=== PATIENT | female | born 1965 | race Caucasian/White ===

== ENCOUNTER 2020-03-17 18:10 | Emergency (ER) | payer BC, SELFPAY ==
--- NOTE | ~2020-03-17 | CT_ITS ---
EXAMINATION: CT abdomen pelvis wo con DATE: 03/17/2020 19:31 INDICATION: Left flank pain. TECHNIQUE: Computed tomography (CT) of the abdomen and pelvis was performed without intravenous contr ast. Automated exposure control and iterative reconstruction technique were employed. The dose-length product was 375.73 mGy-cm. COMPARISON: CT abdomen and pelvis 06/23/2014 FINDINGS: The visualized portions of the lung bases are clear without pneumonia or pleural effusion. The heart size is normal. No pericardial effusion. The liver is normal. The gallbladder is absent. Ca lcifications in the spleen are consistent with old granulomatous disease. The pancreas and adrenal gl ands are normal. There are greater than 10 stones in right kidney including a 2.1 cm staghorn calculu s in the upper pole. There are cysts in right kidney measuring up to 10 mm. There are at least 9 ston es in left kidney measuring up to 7 mm. There is mild left hydronephrosis. There are approximately 3 stones in proximal left ureter measuring up to 4 mm. There are no dilated loops of bowel. The appendi x is not visualized. There are no pathologically enlarged lymph nodes. There is no free intraperitone al fluid. There is mild lumbar spondylosis. IMPRESSION: 1. 3 stones in proximal left ureter measuring up to 4 mm with mild left hydronephrosis. 2. Bilateral nonobstructing kidney stones. Reviewed, dictated and finalized at location A. IMPRESSION: 1. 3 stones in proximal left ureter measuring up to 4 mm with mild left hydrone phrosis. 2. Bilateral nonobstructing kidney stones.
--- NOTE | ~2020-03-17 | XR_ITS ---
EXAMINATION: XR abdomen/kub 1V DATE: 03/17/2020 19:36 INDICATION: Left flank pain. TECHNIQUE: A supine view of the abdomen on 2 radiographs was obtained. COMPARISON: CT abdomen and pelvis 03/17/2020 FINDINGS: There are no dilated loops of bowel. There is a phlebolith in right pelvis. There are 3 sto rigo in proximal left ureter measuring up to 4 mm. There are multiple stones in each kidney measuring up to 14 mm in right kidney upper pole. IMPRESSION: 1. Stones in the kidneys and proximal left ureter. Reviewed, dictated and finalized at location A.
[2020-03-17 18:16] VITALS: BP 131/100; PULSE 94; RESP 18; TEMP 37.1; O2SAT 99
--- NOTE | 2020-03-17 18:24 | ED.GENADULT ---
HPI - General Adult General Chief complaint: Abdominal Pain Stated complaint: left flank pain Time Seen by Provider: 03/17/20 18:23 Source: patient Mode of arrival: ambulatory Limitations: no limitations History of Present Illness HPI narrative: 54-year-old female patient presents to the [facility] with complaints of left flank pain that started earlier today. Patient states she was at work and started having left flank pain that radiates to the left pelvis along with nausea and vomiting. Denies any fevers. Denies any diarrhea. Denies any abdominal pain. Denies any chest pain or shortness of breath. Patient states she has had kidney stones before in the past. Patient states that she did see her primary doctor today and they did test her urine and states that they were going to just go ahead and send her over here for evaluation. Related Data Allergies Allergy/AdvReac Type Severity Reaction Status Date / Time codeine Allergy Severe CHEST PAIN Verified 03/17/20 19:01 morphine AdvReac Intermediate NAUSEA/VOMI Verified 03/17/20 19:01 TING BEE STINGS Allergy Severe ANAPHALACTIC Uncoded 03/17/20 19:01 SHOCK Contrast Media Allergy Severe RASH Uncoded 03/17/20 19:01 SHELLFISH Allergy Intermediate RASH Uncoded 03/17/20 19:01 Review of Systems Review of Systems: Narrative: CONSTITUTIONAL: Denies fever, chills, or sweats. EYES: Denies visual changes, redness, or discharge. ENT: Denies rhinorrhea, congestion, sore throat, or otalgia. CARDIOVASCULAR: Denies chest pain, palpitations, or edema. RESPIRATORY: Denies cough or dyspnea. GASTROINTESTINAL: Denies abdominal pain, positive nausea, vomiting, denies diarrhea. GENITOURINARY: Denies dysuria or hematuria. Left flank pain SKIN: Denies rash or itching. MUSCULOSKELETAL: Denies back pain, joint pain, or myalgia. NEUROLOGIC: Denies headache, numbness, or weakness. PSYCHIATRIC: Denies anxiety or depression. [facility] Past Medical History Medical History (Updated 03/17/20 @ 21:01 by ROSANA Luo) Kidney stones Social History Social History Gender identity (if verbalized by the patient): Male Comments At the time of my signature I agree with nursing past medical history, surgical, social, and family history. There is no relevant family history pertinent to the presenting complaint. Exam Narrative: Exam Narrative: GENERAL: Well-appearing, well-nourished, and in no acute distress. HEAD: Normocephalic, atraumatic. EYES: PERRLA and EOMI. ENT: Nares clear, no rhinorrhea or epistaxis. Mucous membranes moist. NECK: Supple. No lymphadenopathy CHEST: Clear to auscultation. No respiratory distress. HEART: Regular rate and rhythm. No murmur heard. Normal peripheral pulses. ABDOMEN: Soft, flat, nondistended. No guarding, rebound tenderness, or rigid. Patient has slight tenderness noted to left lower quadrant left upper quadrant on palpation. No pulsatilla masses. Bowel sounds present in all four quadrants. No organomegaly. Negative Holley?s sign. No periumbicial tenderness. No Supra public tenderness or distension. Good femoral pulses bilaterally. No hernia noted. No scars or surface trauma. Tenderness on percussion. EXTREMITIES: Normal range of motion. No edema. SKIN: Warm, dry, no rash. NEURO: No focal deficits. Alert and oriented x3. Course Reevaluation(s) Reevaluation #1: Reevaluated patient. Discussed with patient about pain medicine. Patient states she thinks she has had possibly Vicodin or Percocet before in the past does not remember the reaction. Patient notified that she does have some kidney stones to bilateral sides and therefore we will go ahead and give her some pain medicine here today along with a dose of IV antibiotics and most likely will send her home since the kidney stones are nonobstructing. Patient verbalized understanding of this denies any other questions or concerns at this time. Date: 03/17/20 Bo
[2020-03-17 18:32] LABS: Basophils Percent Auto 0.4 % (0.2-1.2); Hematocrit 46.1 % (37.0-47.0); Hemoglobin 15.7 g/dL (12.0-15.0); Immature Granulocyte Absolute 0.03 K/mm3 (0.00-0.031); Immature Granulocyte Percent A 0.3 % (0-0.5); Lymphocytes Absolute Auto 2.13 K/mm3 (0.9-3.2); Lymphocytes Percent Auto 22.7 % (18.3-44.2); Mean Corpuscular HGB Conc 34.1 g/dl (32-36); Mean Corpuscular Volume 90.9 fl (80-100); Monocytes Absolute Auto 0.5 K/mm3 (0.1-0.6); Monocytes Percent Auto 5.5 % (2.6-8.5); Neutrophils Absolute Auto 6.7 K/mm3 (1.3-6.7); Neutrophils Percent Auto 71.1 % (45.5-73.1); Platelet Count Result 292 k/mm3 (150-375); Red Blood Count 5.07 M/mm3 (4.2-5.4); Red Cell Distribution Width 12.4 % (11.5-14.5); White Blood Count 9.4 K/mm3 (4.5-10.0)
[2020-03-17 18:40] LABS: Add Urine Microscopic? YES; Appearance Urine Clear (Clear); Bacteria Urine Trace /hpf; Bilirubin Urine Negative (Negative); Blood Urine 3+ (Negative); Color Urine Straw (Yellow); Glucose Urine UA Negative (Negative); Ketones Urine Negative (Negative); Leukocyte Esterase Ur 1+ LEU/UL (Negative); Nitrate Urine Negative (Negative); Protein Urine Negative (Negative); RBC Urine >75 /hpf (0-2); Specific Grav Ur 1.009 (1.001-1.035); Squamous Epithelial Cell Urine Occasional /hpf (Few); Urobilinogen Urine Negative mg/dL (<2.0); WBC Urine 16-20 /hpf
[2020-03-17 18:44] LABS: Alanine Aminotransferase 17 U/L (4-35); Albumin Level 4.8 g/dL (3.5-5.1); Alkaline Phosphatase 81 U/L (38-126); Aspartate Amino Transferase 24 U/L (14-36); Bilirubin,Total 0.4 mg/dL (0.2-1.3); Blood Urea Nitrogen 13 mg/dL (7-17); Calcium 9.9 mg/dL (8.4-10.2); Carbon Dioxide 24 mmol/L (22-30); Chloride 108 mmol/L (98-107); Estimated CRCL calculation 57 ml/min; Estimated Glomerular Filt Rate > 60; Glucose 107 mg/dL (65-105); Lipase 85 U/L (23-300); Potassium 3.4 mmol/L (3.4-5.0); Sodium 142 mmol/L (137-145)
[2020-03-17] MEDS: KETOROLAC 30 MG/ML VIAL (*BKC) IV PUSH (19:03)
[2020-03-17] MEDS: SODIUM CHLORIDE 0.9% IV 1,000 ML 999 ML IV CONT (19:03)
[2020-03-17 19:33] VITALS: TEMP 37.1
[2020-03-17] MEDS: ONDANSETRON INJ 4 MG/2 ML VIAL IV PUSH (19:40)
[2020-03-17 20:41] VITALS: BP 126/84; PULSE 82; RESP 18; O2SAT 100
[2020-03-17 20:43] VITALS: TEMP 37.1
== END 2020-03-17 21:54 | disposition home or self-care (01) ==
PROVIDERS: Emergency Medicine; Emergency Provider Nurse Practitioner Family
DX: N13.2 Hydronephrosis with renal and ureteral calculous obstruction (principal); Z87.442 Personal history of urinary calculi
CPT/HCPCS: 36415; 74018; 74176; 80053; 81001; 83690; 85025; 87077; 87086; 87088; 87186; 96361; 96365; 96375; 99284; A9270; J0696; J1885; J2405; J7030

== ENCOUNTER 2020-03-19 11:12 | Day surgery (SDC) | payer BC, SELFPAY ==
[2020-03-19] VITALS (9 sets, daily range): BP systolic 109–174; BP diastolic 69–95; PULSE 60–92; RESP 10–20; TEMP 36.5–37.3; O2SAT 99–100; BMI 24.1
--- NOTE | ~2020-03-19 | XR_ITS ---
EXAMINATION: XR retrograde pyelo w/stent LT DATE: 03/19/2020 15:54 INDICATION: Left internal ureteral stent placement TECHNIQUE: Fluoroscopic images from a left internal ureteral stent placement are submitted for review . 30 seconds of fluoroscopy time. 10 fluoroscopic images FINDINGS: There is a left double-J internal ureteral stent projecting in expected position, with proximal [place] loop at the level of the renal pelvis and distal loop in the pelvis within the bladder lumen. IMPRESSION: 1. Left internal ureteral stent placement. Please refer to real-time procedural findings for detail s. Reviewed, dictated and finalized at location B. IMPRESSION: 1. Left internal ureteral stent placement. Please refer to real-time procedur al findings for details.
[2020-03-19] MEDS: SODIUM CHLORIDE 0.9% IV 1,000 ML 999 ML IV CONT (11:42)
[2020-03-19] MEDS: FAMOTIDINE 20 MG/2 ML VIAL IV PUSH (11:43)
[2020-03-19] MEDS: ONDANSETRON INJ 4 MG/2 ML VIAL IV PUSH (11:43)
[2020-03-19 12:57] LABS: Basophils Percent Auto 0.3 % (0.2-1.2); Hematocrit 39.8 % (37.0-47.0); Hemoglobin 13.5 g/dL (12.0-15.0); Immature Granulocyte Absolute 0.02 K/mm3 (0.00-0.031); Immature Granulocyte Percent A 0.2 % (0-0.5); Lymphocytes Absolute Auto 0.76 K/mm3 (0.9-3.2); Lymphocytes Percent Auto 7.9 % (18.3-44.2); Mean Corpuscular HGB Conc 33.9 g/dl (32-36); Mean Corpuscular Hemoglobin 30.8 pg (26-34); Mean Corpuscular Volume 90.9 fl (80-100); Mean Platelet Volume 9.1 fl (7.4-10.4); Monocytes Absolute Auto 0.3 K/mm3 (0.1-0.6); Monocytes Percent Auto 2.6 % (2.6-8.5); Neutrophils Absolute Auto 8.6 K/mm3 (1.3-6.7); Platelet Count Result 217 k/mm3 (150-375); Red Blood Count 4.38 M/mm3 (4.2-5.4); Red Cell Distribution Width 12.2 % (11.5-14.5); White Blood Count 9.7 K/mm3 (4.5-10.0)
--- NOTE | 2020-03-19 12:57 | ED.ABDPAIN ---
HPI - Abdominal Pain General Chief Complaint: Urogenital-Female <Amilcar Rodriguez PA-C Last Filed: 03/19/20 14:15> Stated Complaint: left flank pain/recent kidney stones <JOAN Maurer Last Filed: 03/19/20 14:15> Time Seen by Provider: 03/19/20 11:21 <Amilcar Rodriguez PA-C - Last Filed: 03/19/20 14:15> Source: patient <Amilcar Rodriguez PA-C - Last Filed: 03/19/20 14:15> Mode of arrival: ambulatory <JOAN Maurer Last Filed: 03/19/20 14:15> Limitations: no limitations <JOAN Maurer Last Filed: 03/19/20 14:15> History of Present Illness HPI narrative: Patient is a 54-year-old female who presents to emergency department for evaluation of severe left flank pain. Patient notes aching pain diagnosed with kidney stone and saw urologist yesterday has been at home despite medications with no improvement had been seen in the ER and prescribed medications which patient has taken with no improvement. Patient notes nausea and vomiting this morning with intensified pain. Patient denies fever <Amilcar Rodriguez PA-C Last Filed: 03/19/20 14:15> Related Data Allergies/Adverse Reactions: Allergies Allergy/AdvReac Type Severity Reaction Status Date / Time codeine Allergy Severe CHEST PAIN Verified 03/17/20 19:01 morphine AdvReac Intermediate NAUSEA/VOMI Verified 03/17/20 19:01 TING BEE STINGS Allergy Severe ANAPHALACTIC Uncoded 03/17/20 19:01 SHOCK Contrast Media Allergy Severe RASH Uncoded 03/17/20 19:01 SHELLFISH Allergy Intermediate RASH Uncoded 03/17/20 19:01 <Amilcar Rodriguez PA-C - Last Filed: 03/19/20 14:15> Review of Systems Review of Systems: All systems reviewed & are unremarkable except as noted in HPI and below <Amilcar Rodriguez PA-C Last Filed: 03/19/20 14:15> PMFSH Past Medical History Medical History: Medical History Kidney stones <JOAN Maurer Last Filed: 03/19/20 14:15> Surgical History Surgical History: Surgical History H/O lithotripsy <Amilcar Rodriguez PA-C - Last Filed: 03/19/20 14:15> Social History Social History: Social History Gender identity (if verbalized by the patient): Male <Amilcar Rodriguez PA-C - Last Filed: 03/19/20 14:15> Course INCOME TAX INVESTIGATOR/PA Physician Supervision Patient presented for evaluation of recurrent renal colic. Also experiencing some nausea and vomiting. The time of initial assessment, ABCs are intact and vital signs are stable. Patient is hypertensive but also in quite a bit of pain. IV access obtained and labs are drawn. Patient was given pain medication. No acute kidney injury. No UTI. Given failed outpatient management, urology was consulted, will opt for surgical management, ureteroscopy.Pt reassessed and feeling improved following IV medications. Pt and family updated. Pt transferred to OR from ED. For this patient encounter, I reviewed the INCOME TAX INVESTIGATOR or PA documentation, treatment plan, and medical decision making; and I had silc-ks-cdac time with this patient. <Laney Garza MD - Last Filed: 03/19/20 14:27> Consultations Consultation #1: Discussed case with urologist who will take patient to the OR suite for stent placement <Amilcar Rodriguez PA-C - Last Filed: 03/19/20 14:15> Date: 03/19/20 <JOAN Maurer Last Filed: 03/19/20 14:15> Time: 14:14 <Amilcar Rodriguez PA-C - Last Filed: 03/19/20 14:15> Vital Signs Vital signs: Vital Signs Temperature 36.8 C 03/19/20 11:24 Pulse Rate 60 03/19/20 11:24 Respiratory Rate 20 03/19/20 11:24 Blood Pressure 174/95 H 03/19/20 11:24 Pulse Oximetry 100 03/19/20 11:24 Temperature 36.8 C 03/19/20 11:24 Pulse Rate 87 03/19/20 13:18 Respiratory Rate 20 03/19/20
[2020-03-19 13:02] LABS: Add Urine Microscopic? YES; Appearance Urine Clear (Clear); Bacteria Urine Trace /hpf; Bilirubin Urine Negative (Negative); Blood Urine 3+ (Negative); Calcium Oxalate Crystals Urine Present /hpf; Color Urine Straw (Yellow); Glucose Urine UA Negative (Negative); Ketones Urine Negative (Negative); Leukocyte Esterase Ur Negative LEU/UL (Negative); Nitrate Urine Negative (Negative); Protein Urine Negative (Negative); RBC Urine 51-75 /hpf (0-2); Urobilinogen Urine Negative mg/dL (<2.0)
[2020-03-19 13:08] LABS: Alanine Aminotransferase 17 U/L (4-35); Albumin Level 3.9 g/dL (3.5-5.1); Alkaline Phosphatase 77 U/L (38-126); Aspartate Amino Transferase 24 U/L (14-36); Bilirubin,Total 0.2 mg/dL (0.2-1.3); Blood Urea Nitrogen 11 mg/dL (7-17); Calcium 8.3 mg/dL (8.4-10.2); Carbon Dioxide 21 mmol/L (22-30); Chloride 110 mmol/L (98-107); Estimated CRCL calculation 64 ml/min; Estimated Glomerular Filt Rate > 60; Glucose 103 mg/dL (65-105); Lipase 50 U/L (23-300); Potassium 3.5 mmol/L (3.4-5.0); Sodium 139 mmol/L (137-145)
--- NOTE | 2020-03-19 13:57 | PM.IMHP ---
H&P: HPI History of Present Illness Chief complaint: left flank pain/recent kidney stones Narrative: Vicky Pandey is a 54 year old female who was in the emergency room earlier in the week. She was found to have 3 proximal ureteral stones up to 4 mm. She was given Toradol in the emergency room in this precluded us from proceeding with lithotripsy. She was seen in the office yesterday and had opted for conservative management. Unfortunately she could not tolerate the pain and up in the emergency room again the today. She had persistent nausea with vomiting pain. Given these findings we decided to proceed with cystoscopy left stent placement possible ureteroscopy with stone extraction holmium laser. Review of Systems Review of Systems: All systems reviewed & are unremarkable except as noted in HPI and below PMFSH Past Medical History Medical History Kidney stones Surgical History Surgical History H/O lithotripsy Social History Social History Gender identity (if verbalized by the patient): Male Meds Home Medications and Allergies Home Medications Medication Instructions Recorded Confirmed Type cephalexin 500 mg PO Q12H 7 Days #14 cap 03/17/20 Rx hydrocodone-acetaminophen [Ponder] 1 tablet PO Q6H PRN #14 tablet 03/17/20 Rx tamsulosin [Flomax] 0.4 mg PO DAILY #10 cap 03/17/20 Rx Allergies Allergy/AdvReac Type Severity Reaction Status Date / Time codeine Allergy Severe CHEST PAIN Verified 03/17/20 19:01 morphine AdvReac Intermediate NAUSEA/VOMI Verified 03/17/20 19:01 TING BEE STINGS Allergy Severe ANAPHALACTIC Uncoded 03/17/20 19:01 SHOCK Contrast Media Allergy Severe RASH Uncoded 03/17/20 19:01 SHELLFISH Allergy Intermediate RASH Uncoded 03/17/20 19:01 Vital Signs Vital Signs - 24 hr 03/19/20 11:24 03/19/20 11:48 03/19/20 13:18 Temperature 36.8 C Pulse Rate 60 88 87 Respiratory Rate 20 20 20 Blood Pressure 174/95 H 173/85 H 127/93 H Pulse Oximetry 100 100 99 Exam Const: General: uncomfortable HENMT: Ears: TM abnormal Resp: Effort & Inspection: normal respiratory effort Cardio: Rhythm: regular rhythm GI: Inspection: non-distended Neuro: Speech: normal speech H&P: Results Labs Labs: Short CBC 03/19/20 Range/Units 12:48 WBC 9.7 (4.5-10.0) K/mm3 Hgb 13.5 (12.0-15.0) g/dL Hct 39.8 (37.0-47.0) % Plt Count 217 (150-375) k/mm3 BMP 03/19/20 12:48 Sodium 139 Potassium 3.5 Chloride 110 H Carbon Dioxide 21 L BUN 11 Creatinine 0.80 Glucose 103 Calcium 8.3 L Liver Function 03/19/20 Range/Units 12:48 Total Bilirubin 0.2 (0.2-1.3) mg/dL AST 24 (14-36) U/L ALT 17 (4-35) U/L Alkaline Phosphatase 77 (38-126) U/L Albumin 3.9 (3.5-5.1) g/dL Urine 03/19/20 Range/Units 12:48 Urine Color Straw (Yellow) Urine Appearance Clear (Clear) Urine pH 6.0 (5.0-9.0) Ur Specific [place] 1.010 (1.001-1.035) Urine Protein Negative (Negative) mg/dL Urine Glucose (UA) Negative (Negative) mg/dL Assessment and Plan Assessment and plan (1) Left ureteral calculus: Code(s): N20.1 - Calculus of ureter Status: Acute Assessment and Plan: Plan for cystoscopy with left retrograde pyelogram and stent placement. May also proceed with ureteroscopy stone extraction holmium laser.
[2020-03-19] MEDS: LACTATED RINGERS 1,000 ML 30 ML IV CONT ×2 (14:20→15:56)
--- NOTE | 2020-03-19 14:49 | WPDANESEPPF ---
Anes - Initial Pre Proc Eval Procedure: Operation Date: 03/19/20 15:30 Proposed Procedures p Cystoscopy, Left Ureteroscopy, Left Retrograde Pyelogram, Left Stone Extraction, Left Ureteral Stent Placement(Left) - Vlad Scanlon MD s Possible Holmium Laser Procedure - Vlad Scanlon MD Date/Time: 03/19/20 14:49 Surgeon: Vlad Scanlon MD Pre Op Diagnosis: left flank pain/recent kidney stones Patient Data Age: 54 Gender: F Height: 5 ft 5 in Weight: 63.5 kg Last Vital Signs Temp 36.8 C 03/19/20 11:24 Pulse 87 03/19/20 13:18 Resp 20 03/19/20 13:18 BP 127/93 H 03/19/20 13:18 Pulse Ox 99 03/19/20 13:18 Allergies Allergy/AdvReac Type Severity Reaction Status Date / Time codeine Allergy Severe CHEST PAIN Verified 03/17/20 19:01 morphine AdvReac Intermediate NAUSEA/VOMI Verified 03/17/20 19:01 TING BEE STINGS Allergy Severe ANAPHALACTIC Uncoded 03/17/20 19:01 SHOCK Contrast Media Allergy Severe RASH Uncoded 03/17/20 19:01 SHELLFISH Allergy Intermediate RASH Uncoded 03/17/20 19:01 Home Medications Medication Instructions Recorded Confirmed Type cephalexin 500 mg PO Q12H 7 Days #14 cap 03/17/20 Rx hydrocodone-acetaminophen [Niland] 1 tablet PO Q6H PRN #14 tablet 03/17/20 Rx tamsulosin [Flomax] 0.4 mg PO DAILY #10 cap 03/17/20 Rx Laboratory Tests 03/19/20 03/19/20 03/19/20 12:48 12:48 12:48 WBC 9.7 K/mm3 K/mm3 (4.5-10.0) RBC 4.38 M/mm3 M/mm3 (4.2-5.4) Hgb 13.5 g/dL g/dL (12.0-15.0) Hct 39.8 % % (37.0-47.0) MCV 90.9 fl fl (80-100) MCH 30.8 pg pg (26-34) MCHC 33.9 g/dl g/dl (32-36) RDW 12.2 % % (11.5-14.5) Plt Count 217 k/mm3 k/mm3 (150-375) MPV 9.1 fl fl (7.4-10.4) Immature Gran % (Auto) 0.2 % % (0-0.5) Neut % (Auto) 89.0 % H % (45.5-73.1) Lymph % (Auto) 7.9 % L % (18.3-44.2) [place] % (Auto) 2.6 % % (2.6-8.5) Eos % (Auto) 0.0 % % (0-4.4) Baso % (Auto) 0.3 % % (0.2-1.2) Lymph # (Auto) 0.76 K/mm3 L K/mm3 (0.9-3.2) [place] # (Auto) 0.3 K/mm3 K/mm3 (0.1-0.6) Eos # (Auto) 0.0 K/mm3 K/mm3 (0-0.3) Baso # (Auto) 0.0 K/mm3 K/mm3 (0.0-0.1) Abs Immat Gran (auto) 0.02 K/mm3 K/mm3 (0.00-0.031) Absolute Neuts (auto) 8.6 K/mm3 H K/mm3 (1.3-6.7) Absolute Nucleated RBC 0.0 K/mm3 K/mm3 (0.0-0.012) Nucleated RBC % 0.0 % % (0.0-0.2) Sodium 139 mmol/L mmol/L (137-145) Potassium 3.5 mmol/L mmol/L (3.4-5.0) Chloride 110 mmol/L H mmol/L (98-107) Carbon Dioxide 21 mmol/L L mmol/L (22-30) BUN 11 mg/dL mg/dL (7-17) Creatinine 0.80 mg/dL mg/dL (0.7-1.0) Estim Creat Clear Calc 64 ml/min ml/min Estimated GFR > 60 (59 - ) Glucose 103 mg/dL mg/dL (65-105) Calcium 8.3 mg/dL L mg/dL (8.4-10.2) Total Bilirubin 0.2 mg/dL mg/dL (0.2-1.3) AST 24 U/L U/L (14-36) ALT 17 U/L U/L (4-35) Alkaline Phosphatase 77 U/L U/L (38-126) Total Protein 7.0 g/dL g/dL (6.3-8.2) Albumin 3.9 g/dL g/dL (3.5-5.1) Lipase 50 U/L U/L (23-300) Urine Color Straw (Yellow) Urine Appearance Clear (Clear) Urine pH 6.0 (5.0-9.0) Ur Specific [place] 1.010 (1.001-1.035) Urine Protein Negative mg/dL mg/dL (Negative) Urine Glucose (UA) Negative mg/dL mg/dL (Negative) Urine Ketones Negative mg/dL mg/dL (Negative) Ur Blood (Man) 3+ H (Negative) Urine Nitrate Negative (Negative) Urine Bilirubin Negative (Negative) Urine Urobilinogen Negative mg/dL mg/dL (<2.0) Leukocyte Esterase Rfl Negative SATHYA/UL SATHYA/UL (Negati
[2020-03-19] MEDS: ceFAZolin 2 GM/D5W 50 ML 2 GM/50 ML BAG IVPB (15:16)
[2020-03-19] MEDS: LIDOCAINE HCL 2% GEL UROJET 10 ML PKG MUCOUS MEM (15:30)
--- NOTE | 2020-03-19 15:48 | P.OP_ITS ---
Procedure Note - Detailed Date of procedure: 03/19/20 Pre-op diagnosis: left flank pain/recent kidney stones Left ureteral calculi x3 Post-op diagnosis: same Procedure performed: Cystoscopy, left retrograde pyelogram, left ureteroscopy with stone extraction, left ureteral stent placement 4.8 Marshallese contour Description of procedure: Patient was taken the operative suite and correctly identified. Once anesthesia was obtained she was placed in dorsal lithotomy position and prepped and draped usual sterile fashion. Twenty-two Marshallese scope inserted in the bladder there is no tumors noted. Left ureteral orifice was cannulated with a guidewire. It was noted that 1 of the stones had migrated to the left UVJ area. Using a rigid ureteral scope we used an escape basket to retrieve the stones entirety. We then advanced the ureteral scope up to the proximal ureter. We noticed another large stone which was retrieved using the escape basket. Third smaller stone was then visualized and is retrieved also. There were no residual stones noted in the ureter. At this point a pyelogram was performed to confirm placement of the stent. 4.8 contour stent was placed with the proximal end coiled in the renal pelvis and the distal in the bladder. Bladder was drained. 2% viscous lidocaine was inserted into the urethra. Patient be discharged home. She will follow up in a week's time with a KUB. We will make a decision regarding stent removal versus treatment of any renal calculi. Anesthesia: GLMA Surgeon: Vlad Scanlon MD Drains: Yes Packing: No Pathology: yes Complications: No immediate complications Condition: stable Disposition: PACU
== END 2020-03-19 17:45 | disposition home or self-care (01) ==
LOC: ANHED 13:44 → ANHSURGERY 13:50
PROVIDERS: Emergency Medicine Emergency Medical Services; Emergency Provider Emergency Medicine; PCP Urology; Visit Provider Urology
PROC: (CPT 52352; principal; 2020-03-19 15:30)
DX: N20.1 Calculus of ureter (principal)
CPT/HCPCS: 52332; 52352; 36415; 74420; 80053; 81001; 82365; 83690; 85025; 87086; 88300; 96361; 96365; 96375; 96376; 99285; A9270; C1769; C2617; J0131; J0690; J1100; J2250; J2405; J2704; J3010; J7030; J7120; Q9966

== ENCOUNTER 2020-05-11 08:22 | Outpatient (CLI) | payer BC, SELFPAY ==
--- NOTE | ~2020-05-11 | XR_ITS ---
XR abdomen/kub 1V 05/11/2020 08:45 Indication: Left ureteral stone Procedure: KUB Comparison: Comparison to multiple prior studies sequentially, with oldest reviewed study dated 02/2014. Findings: There are multiple bilateral renal stones. Nonobstructive bowel gas pattern. No acute osseo us abnormality. Impression: 1: Bilateral nephrolithiasis. Reviewed, dictated and finalized at location A. Impression: 1: Bilateral nephrolithiasis.
== END 2020-05-11 08:23 | disposition home or self-care (01) ==
LOC: ANHIMG 08:28
PROVIDERS: Visit Provider Urology
DX: N20.1 Calculus of ureter (principal); N20.0 Calculus of kidney
CPT/HCPCS: 74018

== ENCOUNTER 2020-12-08 14:38 | Outpatient (CLI) | payer BC, SELFPAY ==
--- NOTE | ~2020-12-08 | CT_ITS ---
EXAMINATION: CT abdomen pelvis wo con DATE: 12/08/2020 15:02 INDICATION: Calculus of the kidney TECHNIQUE: Computed tomography (CT) of the abdomen and pelvis was performed without intravenous contr ast. The dose-length product (DLP) was 194.62 mGy-cm. Automated exposure control and iterative recons truction technique were employed. COMPARISON: 03/17/2020 FINDINGS: The lung bases are clear. The heart size is normal. Punctate calcifications in an otherwise normal spleen likely represent healed granulomatous disease. The liver, pancreas, and adrenal glands are normal. The gallbladder is absent. There are bilateral nonobstructing stones of the kidneys whic h measure up to 2.3 cm on the right and 0.7 cm on the left. No stones are identified in the ureters o r bladder. There is no hydronephrosis or hydroureter. No pathologically enlarged abdominal or pelvic lymph nodes are identified. There is no free intraperitoneal gas or evidence of bowel obstruction. A moderate volume of colonic stool is present. There is mild lumbar spondylosis. IMPRESSION: 1. Bilateral nonobstructing nephrolithiasis. Reviewed, dictated and finalized at location A.
--- NOTE | ~2020-12-08 | XR_ITS ---
EXAMINATION: XR abdomen/kub 1V INDICATION: Calculus of the kidney TECHNIQUE: Supine views of the abdomen were obtained on 2 radiographs. COMPARISON: 05/11/2020 FINDINGS: There are multiple stones of the right kidney, the largest of which is a 2.2 staghorn calcu becki of the right kidney upper pole. Multiple left kidney stones are identified which measure up to 1. 0 cm in the lower pole. No stones are identified along the expected courses of the ureters or within the urinary bladder. A phlebolith is noted in the right pelvis. The bowel gas pattern is normal. The visualized lung bases are clear. IMPRESSION: 1. Bilateral nephrolithiasis. Reviewed, dictated and finalized at location A.
== END 2020-12-08 14:39 | disposition home or self-care (01) ==
PROVIDERS: PCP Internal Medicine; Visit Provider Urology
DX: N20.0 Calculus of kidney (principal)
CPT/HCPCS: 74018; 74176

== ENCOUNTER 2021-06-15 08:32 | Outpatient (CLI) | payer BC, SELFPAY ==
--- NOTE | ~2021-06-15 | MM_ITS ---
EXAMINATION: MM screening rayna BI w ledy HISTORY: Screening TECHNIQUE: Craniocaudal and mediolateral oblique 3-D tomosynthesis images were obtained and synthetic 2-D images were generated. CAD analysis was submitted and interpreted. COMPARISON: Comparison to multiple prior studies sequentially, with oldest reviewed study dated 05/24. BREAST PARENCHYMAL COMPOSITION: There are scattered areas of fibroglandular density. FINDINGS: There is no evidence of suspicious mass, calcification, or architectural distortion to sugg est malignancy in either breast. There has been no suspicious interval change. IMPRESSION: 1. No mammographic evidence of malignancy. 2. Recommend routine screening mammography in one year. BI-RADS Category 1: Negative Reviewed, dictated and finalized at location A.
== END 2021-06-15 08:33 | disposition home or self-care (01) ==
LOC: ANHIMG 08:34
PROVIDERS: Visit Provider Obstetrics & Gynecology
DX: Z12.31 Encounter for screening mammogram for malignant neoplasm of breast (principal)
CPT/HCPCS: 77063; 77067

== ENCOUNTER 2021-06-24 09:43 | Outpatient (CLI) | payer BC, SELFPAY ==
--- NOTE | ~2021-06-24 | XR_ITS ---
EXAMINATION: XR abdomen/kub 1V DATE: 06/24/2021 09:59 INDICATION: Calculus of kidney, bilateral. TECHNIQUE: A supine view of the abdomen on 2 radiographs was obtained. COMPARISON: Abdomen radiographs 12/08/2020, CT abdomen and pelvis 12/08/2020 FINDINGS: There are no dilated loops of bowel. Again seen is a phlebolith in right pelvis. There are multiple stones in right kidney with most clustered in the upper pole measuring up to 10 mm. There ar e at least 6 stones in left kidney measuring up to 4 mm. IMPRESSION: 1. Bilateral kidney stones. Reviewed, dictated and finalized at location A. IMPRESSION: 1. Bilateral kidney stones.
== END 2021-06-24 09:44 | disposition home or self-care (01) ==
PROVIDERS: Visit Provider Urology
DX: N20.0 Calculus of kidney (principal)
CPT/HCPCS: 74018

== ENCOUNTER 2022-07-05 09:51 | Outpatient (CLI) | payer BC, SELFPAY ==
--- NOTE | ~2022-07-05 | XR_ITS ---
EXAM: XR abdomen/kub 1V DATE: 07/05/2022 10:12 HISTORY: HX OF KIDNEY STONES, YEARLY CHECK-UP . COMPARISON: 06/24/2021. FINDINGS: Clear lung bases. Normal bowel gas pattern. No organomegaly. Multiple bilateral renal calc zane, similar in size and location. Multiple pelvic phleboliths. Regional bones and soft tissues cami l for age. IMPRESSION: Stable bilateral nephrolithiasis. Reviewed, dictated and finalized at location K.
== END 2022-07-05 09:52 | disposition home or self-care (01) ==
PROVIDERS: Visit Provider Nurse Practitioner Family
DX: N20.0 Calculus of kidney (principal)
CPT/HCPCS: 74018

== ENCOUNTER 2022-08-16 09:27 | Outpatient (CLI) | payer BC, SELFPAY ==
--- NOTE | ~2022-08-16 | MM_ITS ---
EXAMINATION: MM screening rayna BI w ledy HISTORY: Screening TECHNIQUE: Craniocaudal and mediolateral oblique 3-D tomosynthesis images were obtained and synthetic 2-D images were generated. CAD analysis was submitted and interpreted. COMPARISON: Comparison to multiple prior studies sequentially, with oldest reviewed study dated 05/24. BREAST PARENCHYMAL COMPOSITION: The breasts are almost entirely fatty. FINDINGS: There is no evidence of suspicious mass, calcification, or architectural distortion to sugg est malignancy in either breast. There has been no suspicious interval change. IMPRESSION: 1. No mammographic evidence of malignancy. 2. Recommend routine screening mammography in one year. BI-RADS Category 1: Negative Reviewed, dictated and finalized at location B. L HEATER
== END 2022-08-16 09:28 | disposition home or self-care (01) ==
LOC: ANHIMG 09:29
PROVIDERS: Visit Provider Obstetrics & Gynecology
DX: Z12.31 Encounter for screening mammogram for malignant neoplasm of breast (principal)
CPT/HCPCS: 77063; 77067

== ENCOUNTER 2023-01-01 14:50 | Inpatient (IN) | payer BC, SELFPAY ==
[2023-01-01] VITALS (23 sets, daily range): BP systolic 126–174; BP diastolic 71–112; PULSE 62–91; RESP 14–18; TEMP 36.4–37.1; O2SAT 94–99
--- NOTE | ~2023-01-01 | XR_ITS ---
EXAMINATION: XR retrograde pyelo w/stent LT DATE: 01/03/2023 10:40 INDICATION: Left ureteral stone removal and ureteral stent placement. TECHNIQUE: 2 fluoroscopic images of the abdomen were obtained during procedure performed by Dr. Isaias huang. Radiologist was not present for the imaging or procedure. The amount of fluoroscopy time used du ring this procedure was 0.3 minutes. COMPARISON: CT and KUB dated 01/01/2023 FINDINGS: Initial image demonstrates a wire and catheter advanced to the left renal pelvis which is opacified w ith contrast. The previously seen stone at the proximal most left ureter is not visualized and has ei ther been extracted or pushed back into the renal collecting system and obscured by the injected cont rast. Subsequent image demonstrates internal ureteral stent with loops formed in the left renal pelvi s. IMPRESSION: 1. Placement of a left internal ureteral stent in expected position. The prior stone at the proximal left ureter is not visualized, unclear whether this has been extracted or refluxed back into the cont rast opacified collecting system. Correlate with procedure note for further detail. Reviewed, dictated and finalized at location B. IMPRESSION: 1. Placement of a left internal ureteral stent in expected position. The prior stone at the proximal left ureter is not visualized, unclear whether this has b een extracted or refluxed back into the contrast opacified collecting system. C orrelate with procedure note for further detail.
--- NOTE | ~2023-01-01 | CT_ITS ---
EXAMINATION: CT abdomen pelvis wo con DATE: 01/01/2023 17:22 INDICATION: L flank pain w. radiation TECHNIQUE: Computed tomography (CT) of the abdomen and pelvis was performed without intravenous contr ast. Automated exposure control and iterative reconstruction technique were employed. The dose-length product was 513.27 mGy-cm. COMPARISON: 12/08/2020. FINDINGS: Lower thorax: Unremarkable Liver: Normal. Biliary/Gallbladder: Gallbladder is absent. No bile duct dilation. Pancreas: No mass or duct dilation. Spleen: Granulomatous calcifications Adrenals:No mass. Kidneys: Multiple bilateral renal calculi, including staghorn calculi in the right upper pole. 5 mm l eft UPJ calcification with an adjacent small or 2-3 mm also at the left UPJ. Moderate pelviectasis an d caliectasis. Small distal ureteral dilation. 3 mm calcification at the left UVJ. No suspicious mass . Stable right pelviectasis. GI tract: No small or large bowel dilation. Appendix not confidently visualized. Mesentery/Peritoneum: No ascites, mass, or free air. Retroperitoneum: No mass. Atherosclerotic abdominal aortic and/or arterial calcifications. Pelvis: Uterus likely surgically absent, the remaining organs are within normal limits. Soft Tissues: Soft tissues and body wall unremarkable. Bones: No acute osseous finding. IMPRESSION: Cluster of 5 mm and 3 mm calcifications of the left UPJ. 3 mm calcification at the left UVJ. Moderate proximal left hydronephrosis. Reviewed, dictated and finalized at location K.
--- NOTE | ~2023-01-01 | XR_ITS ---
EXAM: XR abdomen/kub 1V DATE: 01/01/2023 18:22 HISTORY: L kidney stone, urology request. HAS 12 STONES . COMPARISON: CT abdomen and pelvis, same date. FINDINGS: Clear lung bases. Normal bowel gas pattern. No organomegaly. Multiple calcifications proje ct over the renal shadows. 6 mm and 3 mm calcifications project over the left UPJ. A 3 mm left UVJ ca lcification is faintly visible. Regional bones and soft tissues normal for age. IMPRESSION: Redemonstration of a cluster of stones at the left UPJ. The known 3 mm left UVJ calcifica tion is faintly visible. Bilateral nephrolithiasis. Reviewed, dictated and finalized at location K. IMPRESSION: Redemonstration of a cluster of stones at the left UPJ. The known 3 mm left UVJ calcification is faintly visible. Bilateral nephrolithiasis.
--- NOTE | ~2023-01-01 | US_ITS ---
. EXAMINATION: US renal BI DATE: 01/07/2023 10:30 INDICATION: Kidney stones. Flank pain. TECHNIQUE: Multiple ultrasound grayscale images of the kidneys were obtained. COMPARISON: CT abdomen and pelvis 01/05/2023 FINDINGS: The right kidney measures 11.1 x 4.6 x 4.8 cm. The left kidney measures 12.4 x 5.6 x 4.7 cm. The kidn eys demonstrate normal parenchymal echogenicity. There are stones in the kidneys bilaterally. There i s no hydronephrosis. The bladder is normal. IMPRESSION: 1. Bilateral kidney stones. No hydronephrosis. Reviewed, dictated and finalized at location A.
--- NOTE | ~2023-01-01 | XR_ITS ---
EXAMINATION: XR abdomen/kub 1V DATE: 01/04/2023 16:07 INDICATION: Left ureteral stone. TECHNIQUE: A supine view of the abdomen on 2 radiographs was obtained. COMPARISON: CT abdomen and pelvis 01/01/2023 FINDINGS: There are no dilated loops of bowel. There is a left internal ureteral stent in expected po sition. There are multiple stones in each kidney measuring up to 13 mm on the right. IMPRESSION: 1. Bilateral kidney stones. 2. Left internal ureteral stent in expected position. Reviewed, dictated and finalized at location A.
--- NOTE | ~2023-01-01 | US_ITS ---
EXAMINATION: US venous doppler [facility] DATE: 01/05/2023 13:42 INDICATION: Extremity pain TECHNIQUE: Grayscale ultrasound images without and with compression and Doppler ultrasound images of the bilateral lower extremity veins were obtained. COMPARISON: None. FINDINGS: The visualized portions of right common femoral vein, profunda (deep) femoral vein, femoral vein, pop liteal vein, posterior tibial veins, peroneal veins, gastrocnemius vein, soleal vein and greater saph enous vein outflow are patent. The visualized portions of left common femoral vein, profunda femoral vein, femoral vein, popliteal v ein, posterior tibial veins, peroneal veins, gastrocnemius vein and greater saphenous vein outflow ar e patent. IMPRESSION: 1. No deep venous thrombosis in either lower limb. Reviewed, dictated and finalized at location B.
--- NOTE | ~2023-01-01 | CT_ITS ---
EXAMINATION: CT abdomen pelvis wo con DATE: 01/05/2023 13:25 INDICATION: Abdominal pain and sepsis TECHNIQUE: Computed tomography (CT) of the abdomen and pelvis was performed without intravenous contr ast. Automated exposure control and iterative reconstruction technique were employed. The dose-length product was 493.00 mGy-cm. COMPARISON: 01/01/2023 FINDINGS: Minimal basilar dependent atelectasis in the bilateral lower lobes and lingula. Heart size is normal. No pericardial or pleural effusion. Small sliding-type hiatal hernia. Gallbladder is nonvisualized a nd likely surgically absent. Liver, pancreas, bilateral adrenal glands are normal. Splenic calcific l esions consistent with old granulomatous disease. Prominent bilateral nephrolithiasis. There are also bilateral low-attenuation renal cysts the larger on the right measuring 1.3 cm. There is a new left internal ureteral stent with loops formed in the left renal pelvis and in the bladder. No stones seen at either ureter. No hydronephrosis. There is however increased moderate left perinephric stranding. The bladder is normal. Bowels are unremarkable with no obstruction. The uterus is not identified and has likely been surgically resected. No free intraperitoneal gas or fluid. No pathologically enlarge d abdominal or pelvic lymphadenopathy. Small sclerotic bone island at the right ischial tuberosity. IMPRESSION: 1. Bilateral nephrolithiasis with likely extraction of the previously stones at the left ureteropelvi c and ureterovesicular junctions and placement of a left intrarenal stent which is in expected positi on. 2. Prominent new left perinephric stranding which could be related to the prior hydronephrosis and fo rniceal rupture, ureteral injury during stone extraction and stent placement or sequela of an ascendi ng urinary tract infection. Reviewed, dictated and finalized at location B. IMPRESSION: 1. Bilateral nephrolithiasis with likely extraction of the previously stones at the left ureteropelvic and ureterovesicular junctions and placement of a left intrarenal stent which is in expected position. 2. Prominent new left perinephric stranding which could be related to the prior hydronephrosis and forniceal rupture, ureteral injury during stone extraction and stent placement or sequela of an ascending urinary tract infection.
--- NOTE | ~2023-01-01 | XR_ITS ---
EXAMINATION: XR chest 2V Exam Date/Time: 01/01/2023 20:25 CDT HISTORY: chest pain and back pain Comparison: 06/23/2014. RESULT: Lines, tubes, and devices: ACDF hardware. Lungs and pleura: Clear. Cardiomediastinal silhouette: Stable. Other: No acute osseous or upper abdominal finding. Bilateral renal calculi. IMPRESSION: No acute cardiopulmonary process. Bilateral nephrolithiasis. Reviewed, dictated and finalized at location K.
[2023-01-01 16:17] LABS: Appearance Urine Clear (Clear); Bacteria Urine None Seen /hpf; Bilirubin Urine Negative (Negative); Color Urine Yellow (Yellow); Glucose Urine UA Negative (Negative); Ketones Urine Negative (Negative); Leukocyte Esterase Ur 2+ LEU/UL (Negative); Nitrate Urine Negative (Negative); Non Pathogenic Casts 0-2; Protein Urine 1+ mg/dL (Negative); Specific Grav Ur 1.012 (1.001-1.035); Squamous Epithelial Cell Urine None seen /hpf (Few); Urobilinogen Urine 0.2 mg/dL (<2.0); WBC Urine >100 /hpf; pH Urine 6.5 (5.0-9.0)
[2023-01-01 16:30] LABS: Add Urine Microscopic? YES
[2023-01-01 16:36] LABS: Basophils Absolute Auto 0.1 K/mm3 (0.0-0.1); Basophils Percent Auto 0.9 % (0.2-1.2); Eosinophils Percent Auto 0.5 % (0-4.4); Hematocrit 40.9 % (37.0-47.0); Hemoglobin 13.1 g/dL (12.0-15.0); Immature Granulocyte Absolute 0.03 K/mm3 (0.00-0.031); Immature Granulocyte Percent A 0.4 % (0-0.5); Lymphocytes Absolute Auto 1.84 K/mm3 (0.9-3.2); Lymphocytes Percent Auto 21.8 % (18.3-44.2); Mean Corpuscular Hemoglobin 29.4 pg (26-34); Mean Corpuscular Volume 91.9 fl (80-100); Mean Platelet Volume 8.6 fl (7.4-10.4); Monocytes Absolute Auto 0.6 K/mm3 (0.1-0.6); Monocytes Percent Auto 6.6 % (2.6-8.5); Neutrophils Absolute Auto 5.9 K/mm3 (1.3-6.7); Neutrophils Percent Auto 69.8 % (45.5-73.1); Platelet Count Result 272 k/mm3 (150-375); Red Blood Count 4.45 M/mm3 (4.2-5.4); White Blood Count 8.4 K/mm3 (4.5-10.0)
[2023-01-01 16:44] LABS: Alanine Aminotransferase 25 U/L (6-35); Albumin Level 4.6 g/dL (3.5-5.1); Alkaline Phosphatase 69 U/L (38-126); Anion Gap 12 mmol/L (8-16); Aspartate Amino Transferase 29 U/L (14-36); Bilirubin,Total 0.4 mg/dL (0.2-1.3); Blood Urea Nitrogen 14 mg/dL (7-17); Calcium 8.8 mg/dL (8.4-10.2); Carbon Dioxide 17 mmol/L (22-30); Chloride 113 mmol/L (98-107); Estimated CRCL calculation 46 ml/min; Estimated Glomerular Filt Rate 51; Glucose 97 mg/dL (65-110); Potassium 3.8 mmol/L (3.4-5.0); Sodium 142 mmol/L (137-145)
[2023-01-01] MEDS: SODIUM CHLORIDE 0.9% IV 1,000 ML 999 ML IV CONT (16:51)
[2023-01-01] MEDS: ONDANSETRON INJ 4 MG/2 ML VIAL IV PUSH ×2 (16:51→18:53)
[2023-01-01] MEDS: HYDROmorphone HCL INJ (*CRX) 1 MG/ML SYR 0.5 MG IV PUSH (17:54)
--- NOTE | 2023-01-01 18:38 | ED.FEMALEGU ---
HPI - Female Genitourinary General Chief complaint: Urogenital-Female Stated complaint: kidney stones Time Seen by Provider: 01/01/23 16:25 History of Present Illness HPI Narrative: 57-year-old female with history of UTIs, kidney stones, presenting with dysuria and left flank pain on and off for the last 2 weeks, was much worse today with nausea and vomiting. No fevers or chills. Related Data Home Medications Medication Instructions Recorded Confirmed topiramate 100 mg tablet 100 mg PO BID 03/19/20 11/16/22 tramadol 50 mg tablet 50 mg PO Q4-6H PRN Pain 03/19/20 11/16/22 leflunomide 20 mg tablet 20 mg PO DAILY 11/16/22 11/16/22 rosuvastatin 10 mg tablet 10 mg PO DAILY 11/16/22 11/16/22 upadacitinib 15 mg tablet,extended 15 mg PO DAILY 11/16/22 11/16/22 release 24 hr (Rinvoq) verapamil 180 mg tablet,extended 180 mg PO DAILY 11/16/22 11/16/22 release zolpidem 10 mg tablet (Ambien) 10 mg PO QHS PRN 11/16/22 11/16/22 Allergies Allergy/AdvReac Type Severity Reaction Status Date / Time codeine Allergy Severe CHEST PAIN Verified 01/01/23 16:27 morphine AdvReac Intermediate NAUSEA/VOMI Verified 01/01/23 16:27 TING BEE STINGS Allergy Severe ANAPHALACTIC Uncoded 01/01/23 16:27 SHOCK Contrast Media Allergy Severe RASH Uncoded 01/01/23 16:27 SHELLFISH Allergy Intermediate RASH Uncoded 01/01/23 16:27 Review of Systems Review of Systems: CONST: No fever. HEENT: No sore throat C/V: No chest pain RESP: No cough GI: Nausea vomiting : dysuria. M/S: No joint pain. SKIN: No rash. NEURO: [No headache or focal numbness or weakness] PSYCH: [No depression] [facility] Past Medical History Medical History (Updated 01/01/23 @ 19:35 by Leslie West MD) Abnormal serum cholesterol Acute arthritis High blood pressure Kidney stones Screening mammogram for breast cancer Surgical History Surgical History (Updated 11/16/22 @ 14:31 by Maryse Larkin MA) Delivery by section H/O lithotripsy H/O: hysterectomy 2000 History of appendectomy History of tubal ligation S/P endometrial ablation Family History Family History (Updated 11/16/22 @ 14:37 by Maryse Larkin MA) Mother Heart disease Social History Social History (Updated 11/16/22 @ 14:38 by Maryse Larkin MA) Smoking status: Never smoker Alcohol intake: never Substance use: never Living arrangements: with family Occupation/Education: retired Gender identity (if verbalized by the patient): Female Sexual Orientation (if Verbalized by the Patient): Straight or Heterosexual Exam Narrative: EXAMINATION OF ORGAN SYSTEMS/BODY AREAS: Constitutional: Vital signs per nursing GENERAL: Appears uncomfortable HEAD: Normal with no signs of head trauma. EYES: EOMI, conjunctiva normal ENT: Hearing grossly intact LUNGS: Nonlabored breathing. HEART: [Regular rate and rhythm] ABD: [Soft], [nontender to palpation] EXT: Normal range of motion SKIN: [No rashes or lesions.] NEURO: [Alert and oriented x 3. No gross focal sensory or strength deficits.] PSYCH: Normal affect Course Vital Signs Vital signs: Vital Signs Temperature 98.0 F 01/01/23 15:47 Pulse Rate 91 01/01/23 15:47 Respiratory Rate 14 01/01/23 15:47 Blood Pressure 149/96 H 01/01/23 15:47 Pulse Oximetry 97 01/01/23 15:47 Oxygen Delivery Room Air 01/01/23 15:47 Temperature 97.6 F 01/01/23 19:20 Pulse Rate 74 01/01/23 19:20 Respiratory Rate 16 01/01/23 19:20 Blood Pressure 164/108 H 01/01/23 19:20 Pulse Oximetry 95 01/01/23 19:20 Oxygen Delivery Room Air 01/01/23 15:47 MDM - Female Genitourinary MDM Narrative Medical decision making narrative: ED COURSE AND MEDICAL DECISION MAKINyoF presenting to the emergency department for acute flank pain, symptoms are concerning for likely renal colic versus pyelonephritis. Urinalysis is ordered. [Dilaudid, Zofran 4mg] are ordered. CT scan of the abdomen/pelvis is ordered.
[2023-01-01] MEDS: HYDROmorphone HCL INJ (*CRX) 1 MG/ML SYR IV PUSH (18:53)
--- NOTE | 2023-01-01 21:40 | ADMGEN ---
This patient, Vicky Pandey, was admitted to Medical Room 348-01. Patient/family oriented to hospital policies and general routines including ID bracelet, bed and alarms, visiting hours, pain management, procedures, bathroom and other care routines, personal items, smoking policy, room service/diet, and visiting hours. Information on how to activate the Rapid Response Team has been discussed. Patient/Family are encouraged to report perceived risks to care and to ask questions if they do not understand what they are told or what they should do.
--- NOTE | 2023-01-01 23:01 | PM.IMHP ---
H&P: HPI History of Present Illness Date/Time: 01/01/23 23:01 Chief Complaint: Kidney stone Narrative: This is a 57-year-old female patient who has had a history of kidney stones at least 5 times now. The patient presented to the emergency room today with dysuria and left flank pain on and off for at least the last 2 weeks. However became worse today. She had some nausea and vomiting today. No fever chills. Chest x-ray was read as no acute cardiopulmonary process bilateral nephrolithiasis. Abdominal x-ray Redemonstration of a cluster of stones at the left UPJ. The known 3 mm left UVJ calcification is faintly visible. Bilateral nephrolithiasis. Abdominal pelvis CT was read as Cluster of 5 mm and 3 mm calcifications of the left UPJ. 3 mm calcification at the left UVJ. Moderate proximal left hydronephrosis. The patient was given Rocephin, Zofran, IV fluids, and Dilaudid in the emergency room. Urology has been consulted. The patient was made NPO. Creatinine is 1.1. Urine was positive for UTI. The patient is being admitted to observation status on the date of service of 01/01/2023. Review of Systems Review of Systems: All systems reviewed & are unremarkable except as noted in HPI and below Constitutional: Constitutional: Reports as per HPI and Reports no additional constitutional complaints Eyes: Eyes: Reports as per HPI and Reports no additional eye complaints ENT: Reports system reviewed and no additional complaints, except as documented and Reports Normal hearing present Cardiovascular: Cardiovascular: Reports no additional cardiovascular complaints Respiratory: Respiratory: Reports no additional respiratory complaints and Reports no additional respiratory complaints Gastrointestinal: Gastrointestinal: Reports as per HPI and Reports no additional gastrointestinal complaints Musculoskeletal: Musculoskeletal: Reports no additional musculoskeletal complaints Integumentary/Breasts: Skin/Breast: Reports system reviewed and no additional complaints, except as docu and Reports as per HPI Neurologic: Reports system reviewed and no additional complaints, except as documented, Reports as per HPI and Reports Normal hearing present Psychiatric: Psychiatric: Reports no additional psychiatric complaints and Reports as per HPI Endocrine: Endocrine: Reports no additional endocrine complaints Hematologic/Lymphatic: Hematologic/Lymphatic: Reports no additional hematologic/lymphatic complaints Allergic/Immunologic: Allergic/Immunologic: Reports no additional allergic/immunologic complaints [facility] Past Medical History Medical History (Updated 01/01/23 @ 23:56 by Maribel Davidson NP) Abnormal serum cholesterol Acute arthritis High blood pressure Hyperlipidemia Kidney stones Migraines Screening mammogram for breast cancer Surgical History Surgical History (Updated 01/01/23 @ 23:50 by Maribel Davidson NP) Delivery by section H/O hand surgery Left hand H/O lithotripsy H/O Spinal surgery C5 and 6 fusion H/O: hysterectomy 2000 History of appendectomy History of tubal ligation Hx of cholecystectomy S/P endometrial ablation Family History Family History Mother Heart disease Other Brain cancer Lung cancer Social History Social History (Updated 01/01/23 @ 23:51 by Maribel Davidson NP) Social History: The patient is and lives with her she has 1 son. She is retired from the [employer] [place] Code status full code Years smoked: 20 Smoking status: Former smoker Tobacco type: cigarettes Alcohol intake: never Substance use: never Substance use type: does not use Lack of Transportation: No Lack of Food: Never True Current Housing: I Have Housing Concerned About Future Housing: No Difficulty Paying Gas/Electric Bills: No Difficulty Paying for Meds: No Currently Unemployed: No Education: Associate De
[2023-01-01] MEDS: traMADol HCL (*CRX) 50 MG TABLET PO (23:54)
[2023-01-02] MEDS: HYDROmorphone HCL INJ (*CRX) 1 MG/ML SYR 0.5 MG IV PUSH ×5 (01:00→16:15)
[2023-01-02] MEDS: SODIUM CHLORIDE 0.9% IV 1,000 ML 100 ML IV CONT ×2 (01:02→11:05)
[2023-01-02] MEDS: traMADol HCL (*CRX) 50 MG TABLET PO ×2 (04:00→11:05)
[2023-01-02 05:35] VITALS: BP 127/80; PULSE 93; RESP 22; TEMP 37; O2SAT 96
[2023-01-02 05:49] LABS: Basophils Percent Auto 0.4 % (0.2-1.2); Eosinophils Absolute Auto 0.1 K/mm3 (0-0.3); Eosinophils Percent Auto 1.1 % (0-4.4); Hematocrit 36.2 % (37.0-47.0); Hemoglobin 11.2 g/dL (12.0-15.0); Immature Granulocyte Absolute 0.04 K/mm3 (0.00-0.031); Immature Granulocyte Percent A 0.4 % (0-0.5); Lymphocytes Absolute Auto 2.43 K/mm3 (0.9-3.2); Lymphocytes Percent Auto 26.8 % (18.3-44.2); Mean Corpuscular HGB Conc 30.9 g/dl (32-36); Mean Corpuscular Volume 93.8 fl (80-100); Mean Platelet Volume 8.5 fl (7.4-10.4); Monocytes Absolute Auto 0.6 K/mm3 (0.1-0.6); Monocytes Percent Auto 6.9 % (2.6-8.5); Neutrophils Absolute Auto 5.8 K/mm3 (1.3-6.7); Neutrophils Percent Auto 64.4 % (45.5-73.1); Platelet Count Result 211 k/mm3 (150-375); Red Blood Count 3.86 M/mm3 (4.2-5.4); White Blood Count 9.1 K/mm3 (4.5-10.0)
[2023-01-02 05:55] LABS: Lactic Acid Reflex 0.6 mmol/L (0.7-2.0)
[2023-01-02 05:57] LABS: Alanine Aminotransferase 22 U/L (6-35); Albumin Level 3.6 g/dL (3.5-5.1); Alkaline Phosphatase 53 U/L (38-126); Anion Gap 6 mmol/L (8-16); Aspartate Amino Transferase 28 U/L (14-36); Bilirubin,Total 0.4 mg/dL (0.2-1.3); Blood Urea Nitrogen 13 mg/dL (7-17); Calcium 7.7 mg/dL (8.4-10.2); Carbon Dioxide 22 mmol/L (22-30); Chloride 113 mmol/L (98-107); Estimated CRCL calculation 50 ml/min; Estimated Glomerular Filt Rate 57; Glucose 84 mg/dL (65-110); Magnesium 2.2 mg/dL (1.6-2.3); Potassium 3.3 mmol/L (3.4-5.0); Sodium 141 mmol/L (137-145)
[2023-01-02] MEDS: LEFLUNOMIDE 20 MG TABLET PO (08:14)
[2023-01-02] MEDS: ESTROGENS, CONJUGATED 0.625 MG TABLET PO (08:15)
[2023-01-02] MEDS: ROSUVASTATIN 10 MG TABLET PO (08:15)
[2023-01-02] MEDS: TOPIRAMATE 100 MG TABLET PO ×2 (08:15→20:48)
[2023-01-02] MEDS: VERAPAMIL HCL 180 MG TABLET ER PO (08:15)
[2023-01-02] MEDS: VENLAFAXINE HCL XR 75 MG CAP.ER.24H PO (08:15)
--- NOTE | 2023-01-02 11:02 | PM.IMPN ---
Progress Note: A&P Assessment and Plan (1) Kidney stones: Code(s): N20.0 - Calculus of kidney Status: Acute Assessment and Plan: CT of the abdomen showed Cluster of 5 mm and 3 mm calcifications of the left UPJ. 3 mm calcification at the left UVJ. Moderate proximal left hydronephrosis. Continue with IV fluid Continue with analgesic Urology consulted (2) Urinary tract infection: Code(s): N39.0 - Urinary tract infection, site not specified Status: Acute Assessment and Plan: Continue with Rocephin most likely an infected kidney stone. (3) Migraines: Code(s): G43.909 - Migraine, unspecified, not intractable, without status migrainosus Status: Acute Assessment and Plan: Continue with Topamax Continue with verapamil Continue with Effexor (4) Hyperlipidemia: Code(s): E78.5 - Hyperlipidemia, unspecified Status: Acute Assessment and Plan: Continue with Crestor Subjective Date/time seen: 01/02/23 11:02 Interval history: Left flank pain Review of Systems Review of Systems: All systems reviewed & are unremarkable except as noted in HPI and below Constitutional: Constitutional: Reports as per HPI and Reports no additional constitutional complaints Eyes: Eyes: Reports as per HPI and Reports no additional eye complaints ENT: Reports system reviewed and no additional complaints, except as documented and Reports Normal hearing present Cardiovascular: Cardiovascular: Reports no additional cardiovascular complaints Respiratory: Respiratory: Reports no additional respiratory complaints and Reports no additional respiratory complaints Gastrointestinal: Gastrointestinal: Reports as per HPI and Reports no additional gastrointestinal complaints Musculoskeletal: Musculoskeletal: Reports no additional musculoskeletal complaints Integumentary/Breasts: Skin/Breast: Reports system reviewed and no additional complaints, except as docu and Reports as per HPI Neurologic: Reports system reviewed and no additional complaints, except as documented, Reports as per HPI and Reports Normal hearing present Psychiatric: Psychiatric: Reports no additional psychiatric complaints and Reports as per HPI Endocrine: Endocrine: Reports no additional endocrine complaints Hematologic/Lymphatic: Hematologic/Lymphatic: Reports no additional hematologic/lymphatic complaints Allergic/Immunologic: Allergic/Immunologic: Reports no additional allergic/immunologic complaints Exam Const: General: cooperative, healthy appearing, comfortable, no acute distress, well developed, awake, Physically active, average body habitus and well nourished Nutritional Appearance: average body habitus and well nourished Orientation/consciousness: oriented to person, oriented to place, oriented to time and patient oriented x3 Limitations: no limitations HENMT: Head: normal to inspection, No palpable skull fracture present, normocephalic and atraumatic Ears: hearing grossly normal bilaterally and external ears normal Face/Nose/Sinus: Normal external nose present and Normal nares present Eyes: General: appearance normal, both eyes and all related structures Alignment and Position: alignment normal Periorbital: periorbital findings normal Eyelids: eyelids normal Sclera: sclerae normal Pupils: Equal, round and reactive pupils present EOM: EOMs intact bilaterally Neck: Neck: normal visual inspection, full ROM, no lymphadenopathy, trachea midline and supple Chest: Chest palpation & inspection: normal inspection of the chest Resp: Effort & Inspection: normal respiratory effort Auscultation: clear to auscultation bilaterally Cardio: Palpation: normal PMI Rate: regular rate Rhythm: regular rhythm Heart sounds: S1 normal heart sound present and S2 normal heart sound present Peripheral pulses: Peripheral pulses 2+ throughout GI: Inspection: normal to inspection Auscultation: normal bowel sounds Rectal
--- NOTE | 2023-01-02 12:17 | WPDURCON ---
Assessment and Plan Assessment and plan (1) Kidney stones: Code(s): N20.0 - Calculus of kidney Status: Acute Assessment and Plan: Visible on KUB, I had a long discussion with the patient about her options. (2) Urinary tract infection: Code(s): N39.0 - Urinary tract infection, site not specified Status: Acute Assessment and Plan: Urine Culture Pending. (3) Left ureteral calculus: Code(s): N20.1 - Calculus of ureter Status: Acute Assessment and Plan: The patient is not tolerating the pain well on pain medications, she is reluctant to have a stent placed. SHe has no symptoms of a UTI, but urine culture is pending. I will let Dr. Scanlon decide if a stent placement or stone removal will be able to be done today. We also discussed doing a lithotripsy Sunday and keeping her for pain control until then, which is not ideal. I suggested a stent placement, then discharge home when culture is resulted. She could then have a Litho Sunday possibly. She is not on anticoagulants and has not taken any in the past week. Obtain consent: Cystoscopy, left ureteroscopy with possible stone extraction, left stent placement, possible holmium laser. Keep NPO. Urology Consult Note HPI Date Seen: 01/02/23 Time Seen: 10:00 Requesting Physician: Lázaro Ontiveros MD Primary Care Provider: PHYSICIAN NOT ON STAFF Consult Narrative Reason for consult: Left Ureteral Stone Narrative: Vicky Pandey is a 57 year old female who presented to the ER yesterday with worsening left flank pain that radiates to the LLQ and left groin. She states the pain started 2 weeks ago but worsened to stabbing pain on Sunday last weekend. She denies dysuria, nausea, vomiting, hematuria, frequency, urgency or fevers present at this time. WBC is 9.[address] scan shows a cluster of stones in the left UPJ measuring 3 and 5mm and a 3mm at the left UVJ as well as moderate proximal ureteral stones. KUB is positive. Her urine and blood cultures are pending. She has a history of stones and UTI's. She also notes a history of stents being placed and states she doesn't tolerate stents well. Review of Systems Cardiovascular: Cardiovascular: Denies chest pain Respiratory: Respiratory: Reports no additional respiratory complaints Gastrointestinal: Gastrointestinal: Reports abdominal pain, Reports nausea and Reports vomiting Genitourinary: Genitourinary: Denies hematuria, Denies nocturia, Denies dysuria, Denies pelvic pain, Reports flank pain, Denies urinary incontinence, Denies urinary hesitancy and Denies urinary urgency [facility] Past Medical History Medical History Abnormal serum cholesterol Acute arthritis High blood pressure Hyperlipidemia Kidney stones Migraines Screening mammogram for breast cancer Surgical History Surgical History Delivery by section H/O hand surgery Left hand H/O lithotripsy H/O Spinal surgery C5 and 6 fusion H/O: hysterectomy 2000 History of appendectomy History of tubal ligation Hx of cholecystectomy S/P endometrial ablation Family History Family History Mother Heart disease Other Brain cancer Lung cancer Social History Social History Social History: The patient is and lives with her she has 1 son. She is retired from the [employer] Code status full code Years smoked: 20 Smoking status: Former smoker Tobacco type: cigarettes Alcohol intake: never Substance use: never Substance use type: does not use Lack of Transportation: No Lack of Food: Never True Current Housing: I Have Housing Concerned About Future Housing: No Difficulty Paying Gas/Electric Bills: No Difficulty Alli
[2023-01-02 14:00] VITALS: BP 102/67; PULSE 65; RESP 16; TEMP 36.3; O2SAT 98
[2023-01-02] MEDS: HYDROmorphone HCL INJ (*CRX) 1 MG/ML SYR IV PUSH (19:14)
[2023-01-02 21:42] VITALS: BP 121/72; PULSE 65; RESP 16; TEMP 36.2; O2SAT 95
[2023-01-02] MEDS: ZOLPIDEM TARTRATE (*CRX) 5 MG TABLET 10 MG PO (21:53)
[2023-01-02] MEDS: HYDROmorphone HCL INJ (*CRX) 1 MG/ML SYR 2 MG IV PUSH (21:54)
[2023-01-03] VITALS (13 sets, daily range): BP systolic 108–152; BP diastolic 63–97; PULSE 80–107; RESP 12–18; TEMP 36.2–37.1; O2SAT 92–99
[2023-01-03] MEDS: SODIUM CHLORIDE 0.9% IV 1,000 ML 100 ML IV CONT ×3 (00:03→22:03)
[2023-01-03] MEDS: diphenhydrAMINE HCl INJ 50 MG/ML VIAL 12.5 MG IV PUSH (00:53)
[2023-01-03] MEDS: HYDROmorphone HCL INJ (*CRX) 1 MG/ML SYR 2 MG IV PUSH ×4 (03:54→20:34)
[2023-01-03] MEDS: ONDANSETRON INJ 4 MG/2 ML VIAL IV PUSH (08:07)
--- NOTE | 2023-01-03 08:40 | PC.NURSE ---
pt nauseated and vomiting this morning. zofran given. PO morning medicine held. pt taken down to surgery at 0840
[2023-01-03] MEDS: LACTATED RINGERS 1,000 ML 30 ML IV CONT (08:50)
--- NOTE | 2023-01-03 09:25 | WPDANESEPPF ---
Anes - Initial Pre Proc Eval Procedure: Operation Date: 01/03/23 10:00 Proposed Procedures p Cystoscopy, Left Ureteroscopy, Left Retrograde Pyelogram, Left Stone Extraction, Possible Left Stent Placement, Possible Holmium Laser - Vlad Scanlon MD Date/Time: 01/03/23 09:25 Surgeon: Lázaro Ontiveros MD Pre Op Diagnosis: L Infected Stones Patient Data Age: 57 Gender: F Height: 1.65 m Weight: 70.45 kg Last Vital Signs Temp 36.5 C 01/03/23 05:35 Pulse 87 01/03/23 05:35 Resp 18 01/03/23 05:35 BP 108/63 01/03/23 05:35 Pulse Ox 92 01/03/23 05:35 O2 Del Method Room Air 01/03/23 08:11 Allergies Allergy/AdvReac Type Severity Reaction Status Date / Time codeine Allergy Severe CHEST PAIN Verified 01/01/23 16:27 morphine AdvReac Intermediate NAUSEA/VOMI Verified 01/01/23 16:27 TING BEE STINGS Allergy Severe ANAPHALACTIC Uncoded 01/01/23 16:27 SHOCK Contrast Media Allergy Severe RASH Uncoded 01/01/23 16:27 SHELLFISH Allergy Intermediate RASH Uncoded 01/01/23 16:27 Home Medications Medication Instructions Recorded Confirmed Type topiramate 100 mg tablet 100 mg PO BID 03/19/20 01/01/23 History tramadol 50 mg tablet 50 mg PO Q4-6H PRN Pain (Scale 03/19/20 01/01/23 History Score 4-6) conjugated estrogens 0.625 mg 0.625 mg PO DAILY #90 tabs 11/16/22 01/01/23 Rx tablet (Premarin) leflunomide 20 mg tablet 20 mg PO DAILY 11/16/22 01/01/23 History rosuvastatin 10 mg tablet 10 mg PO DAILY 11/16/22 01/01/23 History upadacitinib 15 mg tablet,extended 15 mg PO DAILY 11/16/22 01/01/23 History release 24 hr (Rinvoq) verapamil 180 mg tablet,extended 180 mg PO DAILY 11/16/22 01/01/23 History release zolpidem 10 mg tablet (Ambien) 10 mg PO QHS PRN Insomnia 11/16/22 01/01/23 History venlafaxine 75 mg capsule,extended 75 mg PO DAILY 01/01/23 01/01/23 History release 24 hr Patient hx anesthesia problems: none Family hx anesthesia problems: none Results Review: All pre-operative results and documents have been reviewed as part of the pre-operative evaluation. [facility] Past Medical History Medical History Abnormal serum cholesterol Acute arthritis High blood pressure Hyperlipidemia Kidney stones Migraines Screening mammogram for breast cancer Surgical History Surgical History Delivery by section H/O hand surgery Left hand H/O lithotripsy H/O Spinal surgery C5 and 6 fusion H/O: hysterectomy 2000 History of appendectomy History of tubal ligation Hx of cholecystectomy S/P endometrial ablation Family History Family History Mother Heart disease Other Brain cancer Lung cancer Social History Social History Social History: The patient is and lives with her she has 1 son. She is retired from the [employer] [place] Code status full code Years smoked: 20 Smoking status: Former smoker Tobacco type: cigarettes Alcohol intake: never Substance use: never Substance use type: does not use Lack of Transportation: No Lack of Food: Never True Current Housing: I Have Housing Concerned About Future Housing: No Difficulty Paying Gas/Electric Bills: No Difficulty Paying for Meds: No Currently Unemployed: No Education: Associate Degree Difficulty w/ Childcare or Family Care: No Living arrangements: with family Occupation/Education: retired Gender identity (if verbalized by the patient): Female Sexual Orientation (if Verbalized by the Patient): Straight or Heterosexual Spiritual care concerns: No Anes - Eval Final PreProcedure Day of Procedure 01/03/23 09:25 Patient weight: normal Heart: regular rate and rhythm Lungs: clear to auscultation Airway: Mallampati
[2023-01-03] MEDS: fentaNYL CITRATE INJ (*CRX) 100 MCG/2 ML VIAL 25 MCG IV PUSH ×5 (09:31→11:32)
--- NOTE | 2023-01-03 09:56 | WPDHPUPDATE1 ---
History and Physical Update Update Date/Time: 01/03/23 09:56 History and Physical has been reviewed, including an updated exam of the patient. There are NO changes in the patient's condition. Risks, benefits, and alternatives have been discussed and questions answered. Patient agrees to proceed with procedure. Proceed with cysto, left retrograde, left ureteroscopy with stone extraction, possible laser, stent placement
[2023-01-03] MEDS: LIDOCAINE HCL 2% GEL UROJET 10 ML PKG MUCOUS MEM (10:09)
--- NOTE | 2023-01-03 10:37 | WPDUROPN2 ---
Progress Note: A&P Assessment and Plan (1) Left ureteral calculus: Code(s): N20.1 - Calculus of ureter Status: Acute Assessment and Plan: Proceed with cysto, left retrograde, left ureteroscopy with stone extraction, possible holmium laser, stent placement Subjective Subjective Date/Time Seen: 01/03/23 10:37 Principal diagnosis: Left ureteral calculi with hydronephrosis Interval history: Has persistent nausea with emesis and has not passed the stone. Afebrile at this time Review of Systems Review of Systems: All systems reviewed & are unremarkable except as noted in HPI and below Exam Const: General: cooperative Resp: Effort & Inspection: normal respiratory effort Cardio: Rate: regular rate Rhythm: regular rhythm Objective Data Vital Signs Vital Signs: Vital Signs - 24 hr 01/02/23 14:00 01/02/23 21:42 01/03/23 05:35 Temperature 36.3 C L 36.2 C L 36.5 C Pulse Rate 65 65 87 Respiratory Rate 16 16 18 Blood Pressure 102/67 121/72 108/63 Pulse Oximetry 98 95 92 Oxygen Delivery 01/03/23 08:11 01/03/23 08:45 Temperature 37.1 C Pulse Rate 80 Respiratory Rate 16 Blood Pressure 129/81 Pulse Oximetry 96 Oxygen Delivery Room Air Room Air Intake/Output Intake/Output: Intake & Output 12/31/22 01/01/23 01/02/23 01/03/23 23:59 23:59 23:59 23:59 Intake Total 1050 2910 200 Output Total 550 100 Balance 1050 2360 100 Meds/Results Medications: Active Medications Generic Name Dose Route Start Last Admin Trade Name Freq PRN Reason Stop Dose Admin Diphenhydramine HCl 12.5 mg 01/03/23 00:14 01/03/23 00:53 Diphenhydramine Hcl Inj 50 Mg/Ml Vial IV PUSH 12.5 mg Q4H PRN Administration Itching Estrogens Conjugated 0.625 mg 01/02/23 09:00 01/02/23 08:15 Estrogens, Conjugated 0.625 Mg Tablet PO 0.625 mg DAILY JAIME Administration Fentanyl Citrate 25 mcg 01/03/23 09:23 01/03/23 09:31 Fentanyl Citrate Inj (*Crx) 100 Mcg/2 Ml Vial IV PUSH 25 mcg Q2M PRN Administration Pain Fentanyl Citrate 25 mcg 01/03/23 09:24 Fentanyl Citrate Inj (*Crx) 100 Mcg/2 Ml Vial IV PUSH Q2M PRN Pain Hydromorphone HCl 1 mg 01/02/23 16:23 01/02/23 19:14 Hydromorphone Hcl Inj (*Crx) 1 Mg/Ml Syr IV PUSH 1 mg Q3H PRN Administration Pain Rated 4-6 Hydromorphone HCl 2 mg 01/02/23 16:23 01/03/23 03:54 Hydromorphone Hcl Inj (*Crx) 1 Mg/Ml Syr IV PUSH 2 mg Q3H PRN Administration Pain Rated 7-10 Ceftriaxone Sodium 1 gm in 50 mls @ 100 mls/hr 01/02/23 17:00 01/02/23 18:19 Rocephin 1 Gm/Ns 50 Ml IVPB Infused Q24H JAIME Infusion Sodium Chloride 1,000 mls @ 100 mls/hr 01/01/23 23:55 01/03/23 07:40 Normal Saline Iv IV CONT Not Given .Q10H JAIME Lactated Ringer's 1,000 mls @ 30 mls/hr 01/03/23 09:25 01/03/23 08:50 Lr - Lactated Ringers Iv IV CONT 30 mls/hr .Q24H JAIME Administration Lactated Ringer's 1,000 mls @ 30 mls/hr 01/03/23 09:25 Lr - Lactated Ringers Iv IV CONT .Q24H JAIME Leflunomide 20 mg 01/02/23 09:00 01/02/23 08:14 Leflunomide 20 Mg Tablet PO 20 mg DAILY JAIME Administration Upadacitinib [Rinvoq 15 mg 01/02/23 09:00 ] 15 Mg Tablet PO 02/01/23 08:59 Extended Release 24 DAILY JAIME Hr Ondansetron HCl 4 mg 01/03/23 07:43 01/03/23 08:07 Ondansetron Inj 4 Mg/2 Ml Vial IV PUSH 4 mg TID PRN Administration Nausea And Vomiting Ondansetron HCl 4 mg 01/03/23 09:24 Ondansetron Inj 4 Mg/2 Ml Vial IV PUSH ONCE PRN Nausea Rosuvastatin Calcium 10 mg 01/02/23 09:00 01/02/23 08:15 Rosuvastatin 10 Mg Tablet PO 10 mg DAILY JAIME Administration Topiramate 100 mg 01/01/23 23:40 01/02/23 20:48 Topiramate 100 Mg Tablet PO 100 mg Q12HR JAIME Administration Tramadol HCl 50 mg 01/01/23 23:40 01/02/23 11:05 Tramadol Hcl (*Crx) 50 Mg Tablet PO 50 mg Q4-6H PRN Administration Pain (Scale Score 4-6) Venlafaxine
--- NOTE | 2023-01-03 10:38 | W.PM.PROC2 ---
Procedure Note - Detailed Date of Procedure 01/03/23 Pre-op Diagnosis Left ureteral and renal calculi with hydronephrosis Post-op Diagnosis Same Procedure Performed Cystoscopy, left retrograde pyelogram, left ureteroscopy with stone extraction, holmium laser of renal calculi, left ureteral stent placement 4.8 Malagasy contour Surgeon Vlad Scanlon MD Anesthesia General Description of Procedure Patient is taken to the operative suite and correctly identified. Once anesthesia was obtained she was placed in a dorsal lithotomy position and prepped and draped usual sterile fashion. Twenty-two Malagasy scope inserted the bladder. There were no tumors noted. The left ureteral orifice was cannulated with a guidewire. Left rigid ureteral scope was inserted into the orifice after we dilated with an 8/10 dilator. The stone was visualized. There were actually 3-4 stones in the distal ureter which had migrated down. These were grasped and sent for analysis. A mini flexible ureteral scope was then inserted up kidney. Multiple stones were noted in the calices. Using a 200 micron fiber we dusted the stones into smaller pieces. These are too small to grasp. Pyelogram was then performed to confirm placement of the stent. 4.8 Malagasy contour stent was then placed with the proximal end coiled in the left renal pelvis and the distal in the bladder. Bladder was drained. 2% viscous lidocaine was inserted urethra patient is taken recovery stable condition. She will follow-up in a week's time for stent removal. This completes the patient. Please send a copy to my office. Estimated Blood Loss 0 Urine Output 550 Drains Yes Packing No Pathology Yes Complications No immediate complications Condition Stable Disposition PACU
[2023-01-03] MEDS: VERAPAMIL HCL 180 MG TABLET ER PO (12:53)
[2023-01-03] MEDS: ESTROGENS, CONJUGATED 0.625 MG TABLET PO (12:53)
[2023-01-03] MEDS: LEFLUNOMIDE 20 MG TABLET PO (12:53)
[2023-01-03] MEDS: TOPIRAMATE 100 MG TABLET PO ×2 (12:53→20:32)
[2023-01-03] MEDS: ROSUVASTATIN 10 MG TABLET PO (12:53)
[2023-01-03] MEDS: VENLAFAXINE HCL XR 75 MG CAP.ER.24H PO (12:53)
[2023-01-03 13:29] LABS: Anion Gap 3 mmol/L (8-16); Blood Urea Nitrogen 10 mg/dL (7-17); Calcium 8.4 mg/dL (8.4-10.2); Carbon Dioxide 26 mmol/L (22-30); Chloride 111 mmol/L (98-107); Estimated CRCL calculation 62 ml/min; Estimated Glomerular Filt Rate > 60; Glucose 109 mg/dL (65-110); Potassium 3.9 mmol/L (3.4-5.0); Sodium 140 mmol/L (137-145)
[2023-01-03] MEDS: traMADol HCL (*CRX) 50 MG TABLET PO (15:20)
--- NOTE | 2023-01-03 17:10 | PM.IMPN ---
Progress Note: A&P Assessment and Plan (1) Kidney stones: Code(s): N20.0 - Calculus of kidney Status: Acute Assessment and Plan: pt is sp Cystoscopy, left retrograde pyelogram, left ureteroscopy with stone extraction, holmium laser of renal calculi+ left ureteral stent (2) Urinary tract infection: Code(s): N39.0 - Urinary tract infection, site not specified Status: Acute Assessment and Plan: Continue with Rocephin most likely an infected kidney stone. (3) Migraines: Code(s): G43.909 - Migraine, unspecified, not intractable, without status migrainosus Status: Acute Assessment and Plan: Continue with Topamax Continue with verapamil Continue with Effexor (4) Hyperlipidemia: Code(s): E78.5 - Hyperlipidemia, unspecified Status: Acute Assessment and Plan: Continue with Crestor Subjective Date/time seen: 01/03/23 17:10 Interval history: 57-year-old female patient who has had a history of kidney stones at least 5 times now.? The patient presented to the emergency room today with dysuria and left flank pain on and off for at least the last 2 weeks.? However became worse today.? She had some nausea and vomiting today.? No fever chills.? Chest x-ray was read as no acute cardiopulmonary process bilateral nephrolithiasis.? Abdominal x-ray?Redemonstration of a cluster of stones at the left UPJ. The known 3 mm left UVJ calcification is faintly visible. Bilateral nephrolithiasis.? Abdominal pelvis CT was read as Cluster of 5 mm and 3 mm calcifications of the left UPJ. 3 mm calcification at the left UVJ. Moderate proximal left hydronephrosis.? The patient was given Rocephin, Zofran, IV fluids, and Dilaudid in the emergency room. Pt sp Cystoscopy, left retrograde pyelogram, left ureteroscopy with stone extraction, holmium laser of renal calculi, left ureteral stent placement 4.8 Bulgarian contour Pt still having left flank pain watch over nite and DC lance AM Review of Systems Review of Systems: left flank pain All systems reviewed & are unremarkable except as noted in HPI and below Exam Const: General: cooperative, healthy appearing, comfortable, no acute distress, well developed, awake, Physically active, average body habitus and well nourished Resp: Effort & Inspection: normal respiratory effort Auscultation: clear to auscultation bilaterally Cardio: Palpation: normal PMI Rate: regular rate Rhythm: regular rhythm Heart sounds: S1 normal heart sound present and S2 normal heart sound present Peripheral pulses: Peripheral pulses 2+ throughout GI: Inspection: normal to inspection Auscultation: normal bowel sounds Rectal Exam: deferred Skin: General skin exam: normal color Lesions: no lesions Rashes: no rashes Trauma: no lacerations or abrasions Wounds: no wounds Hair: normal Nails: normal Neuro: General: oriented to person, oriented to place, oriented to time and patient oriented x3 Cranial nerves: Yes Equal, round and reactive pupils present and Yes Normal hearing present Cognition (Neuro): normal cognition Speech: normal speech Gait exam (Neuro): Normal gait present Motor exam (neuro): 5/5 motor strength present throughout Sensory Exam: normal sensation Extrem: General: normal to inspection Right upper extremity: normal to inspection and shoulder/upper arm Left upper extremity: normal to inspection and shoulder/upper arm Right lower extremity: normal to inspection Left lower extremity: normal to inspection Psych: Appearance: grossly normal Mental Status: mental status grossly normal Speech and movement: Normal speech and movement present Affect: normal affect Attitude: cooperative Thought process: Normal thought process present Insight: Good insight present (Psych) Judgement: Good judgement present (Psych) Objective Data Vital Signs Vital Signs: Vital Signs - 24 hr 01/02/23 21:42 01/03/23 05:35 01/03/23 08:11 Temperature 36.2 C
[2023-01-03] MEDS: ZOLPIDEM TARTRATE (*CRX) 5 MG TABLET 10 MG PO (22:03)
[2023-01-04] MEDS: HYDROmorphone HCL INJ (*CRX) 1 MG/ML SYR 2 MG IV PUSH ×3 (01:53→20:49)
[2023-01-04 05:25] VITALS: BP 125/77; PULSE 80; RESP 14; TEMP 36.3; O2SAT 99
[2023-01-04] MEDS: SODIUM CHLORIDE 0.9% IV 1,000 ML 100 ML IV CONT ×2 (06:36→16:28)
[2023-01-04] MEDS: LEFLUNOMIDE 20 MG TABLET PO (09:09)
[2023-01-04] MEDS: TOPIRAMATE 100 MG TABLET PO ×2 (09:09→20:49)
[2023-01-04] MEDS: ESTROGENS, CONJUGATED 0.625 MG TABLET PO (09:09)
[2023-01-04] MEDS: VERAPAMIL HCL 180 MG TABLET ER PO (09:09)
[2023-01-04] MEDS: ROSUVASTATIN 10 MG TABLET PO (09:09)
[2023-01-04] MEDS: VENLAFAXINE HCL XR 75 MG CAP.ER.24H PO (09:09)
--- NOTE | 2023-01-04 11:30 | PM.IMPN ---
Progress Note: A&P Assessment and Plan (1) Kidney stones: Code(s): N20.0 - Calculus of kidney Status: Acute Assessment and Plan: pt is sp Cystoscopy, left retrograde pyelogram, left ureteroscopy with stone extraction, holmium laser of renal calculi+ left ureteral stent plan in 11/2022 (2) Urinary tract infection: Code(s): N39.0 - Urinary tract infection, site not specified Status: Acute Assessment and Plan: Continue with Rocephin most likely an infected kidney stone. (3) Migraines: Code(s): G43.909 - Migraine, unspecified, not intractable, without status migrainosus Status: Acute Assessment and Plan: Continue with Topamax Continue with verapamil Continue with Effexor (4) Hyperlipidemia: Code(s): E78.5 - Hyperlipidemia, unspecified Status: Acute Assessment and Plan: Continue with Crestor Plan History of rheumatoid arthritis on leflunomide and upadacitinib Subjective Date/time seen: 01/04/23 11:30 Interval history: 57-year-old female patient who has had a history of kidney stones at least 5 times now.? The patient presented to the emergency room today with dysuria and left flank pain on and off for at least the last 2 weeks.? However became worse today.? She had some nausea and vomiting today.? No fever chills.? Chest x-ray was read as no acute cardiopulmonary process bilateral nephrolithiasis.? Abdominal x-ray?Redemonstration of a cluster of stones at the left UPJ. The known 3 mm left UVJ calcification is faintly visible. Bilateral nephrolithiasis.? Abdominal pelvis CT was read as Cluster of 5 mm and 3 mm calcifications of the left UPJ. 3 mm calcification at the left UVJ. Moderate proximal left hydronephrosis.? The patient was given Rocephin, Zofran, IV fluids, and Dilaudid in the emergency room. Pt sp Cystoscopy, left retrograde pyelogram, left ureteroscopy with stone extraction, holmium laser of renal calculi, left ureteral stent placement 4.8 [place]uran contour 01/04/2023 patient is of left flank pain left groin discomfort needing pain medication remains afebrile, reports passing some stones Review of Systems Review of Systems: All systems reviewed & are unremarkable except as noted in HPI and below Exam Narrative: GENERAL: The patient is well developed, not in acute distress HEENT: Nonicteric sclerae, PERRLA, EOMI. Oropharynx clear. Moist mucous membranes. Conjunctivae appear well perfused. CHEST: Chest wall is nontender. HEART: Regular rate and rhythm without murmur, rubs, or gallops LUNGS: Clear to auscultation bilaterally. no respiratory distress ABDOMEN: Soft, positive bowel sounds, will lower quadrant tenderness, no organomegaly. Left flank tenderness SKIN: No rash, no excessive bruising, petechiae, or purpura. NEUROLOGIC: Cranial nerves II-XII intact, alert and oriented x 3, no gross motor deficits EXTREMITIES: no edema, cyanosis or clubbing Objective Data Vital Signs Vital Signs: Vital Signs - 24 hr 01/03/23 11:38 01/03/23 11:55 01/03/23 12:10 Temperature 97.2 F L 97.3 F L Pulse Rate 82 91 99 Respiratory Rate 14 18 18 Blood Pressure 124/85 150/91 H 128/84 Pulse Oximetry 95 98 92 Oxygen Delivery Room Air 01/03/23 12:40 01/03/23 14:00 01/03/23 20:35 Temperature 97.2 F L 97.1 F L 97.4 F L Pulse Rate 84 96 82 Respiratory Rate 18 18 18 Blood Pressure 152/85 H 134/97 H 123/80 Pulse Oximetry 95 99 97 Oxygen Delivery 01/03/23 20:00 01/04/23 05:25 01/04/23 09:13 Temperature 97.3 F L Pulse Rate 82 80 Respiratory Rate 18 14 Blood Pressure 125/77 Pulse Oximetry 97 99 Oxygen Delivery Room Air Room Air Intake/Output Intake/Output: Intake & Output 01/01/23 01/02/23 01/03/23 01/04/23 23:59 23:59 23:59 23:59 Intake Total 1050 2910 3170 1440 Output Total 550 2550 600 Balance 1050 2360 620 840 Meds/Results Medications: Active Medications Generic Name Dose Route Start Last Admin Trade Na
[2023-01-04] MEDS: HYDROcodone/acetaminophen (*CRX) 5-325 MG TABLET 1 TAB PO (12:00)
[2023-01-04 12:44] LABS: Basophils Absolute Auto 0.1 K/mm3 (0.0-0.1); Basophils Percent Auto 0.4 % (0.2-1.2); Hematocrit 34.8 % (37.0-47.0); Hemoglobin 11.1 g/dL (12.0-15.0); Immature Granulocyte Absolute 0.04 K/mm3 (0.00-0.031); Immature Granulocyte Percent A 0.3 % (0-0.5); Lymphocytes Absolute Auto 0.91 K/mm3 (0.9-3.2); Lymphocytes Percent Auto 7.8 % (18.3-44.2); Mean Corpuscular HGB Conc 31.9 g/dl (32-36); Mean Corpuscular Hemoglobin 30.2 pg (26-34); Mean Corpuscular Volume 94.8 fl (80-100); Mean Platelet Volume 8.3 fl (7.4-10.4); Monocytes Absolute Auto 0.7 K/mm3 (0.1-0.6); Monocytes Percent Auto 6.2 % (2.6-8.5); Neutrophils Absolute Auto 9.9 K/mm3 (1.3-6.7); Neutrophils Percent Auto 85.3 % (45.5-73.1); Platelet Count Result 175 k/mm3 (150-375); Red Blood Count 3.67 M/mm3 (4.2-5.4); Red Cell Distribution Width 14.2 % (11.5-14.5); White Blood Count 11.7 K/mm3 (4.5-10.0)
[2023-01-04] MEDS: HYDROmorphone HCL INJ (*CRX) 1 MG/ML SYR IV PUSH ×2 (13:10→16:27)
[2023-01-04 13:13] LABS: Alanine Aminotransferase 23 U/L (6-35); Albumin Level 3.9 g/dL (3.5-5.1); Alkaline Phosphatase 59 U/L (38-126); Anion Gap 4 mmol/L (8-16); Aspartate Amino Transferase 29 U/L (14-36); Bilirubin,Total 0.3 mg/dL (0.2-1.3); Blood Urea Nitrogen 11 mg/dL (7-17); Calcium 8.1 mg/dL (8.4-10.2); Carbon Dioxide 25 mmol/L (22-30); Chloride 111 mmol/L (98-107); Estimated CRCL calculation 62 ml/min; Estimated Glomerular Filt Rate > 60; Glucose 115 mg/dL (65-110); Potassium 3.2 mmol/L (3.4-5.0); Sodium 140 mmol/L (137-145)
[2023-01-04 14:00] VITALS: BP 128/81; PULSE 83; RESP 14; TEMP 36.8; O2SAT 99
--- NOTE | 2023-01-04 15:51 | WPDUROPN2 ---
Progress Note: A&P Assessment and Plan (1) Kidney stones: Code(s): N20.0 - Calculus of kidney Status: Acute (2) Left ureteral calculus: Code(s): N20.1 - Calculus of ureter Status: Acute Assessment and Plan: KUB today If no significant ureteral stones and still not tolerating stent in morning - will remove stent tomorrow. Subjective Subjective Date/Time Seen: 01/04/23 15:51 Interval history: Marked discomfort with stent Review of Systems Review of Systems: All systems reviewed & are unremarkable except as noted in HPI and below Exam Const: General: no acute distress Resp: Effort & Inspection: normal respiratory effort GI: Inspection: non-distended GI Palp: No abdominal tenderness and No Guarding due to palpation present (GI) Auscultation: normal bowel sounds Objective Data Vital Signs Vital Signs: Vital Signs - 24 hr 01/03/23 20:35 01/03/23 20:00 01/04/23 05:25 Temperature 97.4 F L 97.3 F L Pulse Rate 82 82 80 Respiratory Rate 18 18 14 Blood Pressure 123/80 125/77 Pulse Oximetry 97 97 99 Oxygen Delivery Room Air 01/04/23 09:13 01/04/23 14:00 Temperature 98.2 F Pulse Rate 83 Respiratory Rate 14 Blood Pressure 128/81 Pulse Oximetry 99 Oxygen Delivery Room Air Intake/Output Intake/Output: Intake & Output 01/01/23 01/02/23 01/03/23 01/04/23 23:59 23:59 23:59 23:59 Intake Total 1050 2910 3170 1800 Output Total 550 2550 600 Balance 1050 2360 620 1200 Meds/Results Medications: Active Medications Generic Name Dose Route Start Last Admin Trade Name Freq PRN Reason Stop Dose Admin Hydrocodone Bitart/Acetaminophen 1 tab 01/04/23 11:33 01/04/23 12:00 Hydrocodone/Acetaminophen (*Crx) 5-325 Mg Tablet PO 1 tab Q4H PRN Administration Pain Rated 4-6 Diphenhydramine HCl 12.5 mg 01/03/23 00:14 01/03/23 00:53 Diphenhydramine Hcl Inj 50 Mg/Ml Vial IV PUSH 12.5 mg Q4H PRN Administration Itching Estrogens Conjugated 0.625 mg 01/02/23 09:00 01/04/23 09:09 Estrogens, Conjugated 0.625 Mg Tablet PO 0.625 mg DAILY JAIME Administration Fentanyl Citrate 25 mcg 01/03/23 09:23 01/03/23 09:31 Fentanyl Citrate Inj (*Crx) 100 Mcg/2 Ml Vial IV PUSH 25 mcg Q2M PRN Administration Pain Fentanyl Citrate 25 mcg 01/03/23 09:24 01/03/23 11:32 Fentanyl Citrate Inj (*Crx) 100 Mcg/2 Ml Vial IV PUSH 25 mcg Q2M PRN Administration Pain Hydromorphone HCl 1 mg 01/02/23 16:23 01/04/23 13:10 Hydromorphone Hcl Inj (*Crx) 1 Mg/Ml Syr IV PUSH 1 mg Q3H PRN Administration Pain Rated 4-6 Hydromorphone HCl 2 mg 01/02/23 16:23 01/04/23 06:34 Hydromorphone Hcl Inj (*Crx) 1 Mg/Ml Syr IV PUSH 2 mg Q3H PRN Administration Pain Rated 7-10 Ceftriaxone Sodium 1 gm in 50 mls @ 100 mls/hr 01/02/23 17:00 01/03/23 17:16 Rocephin 1 Gm/Ns 50 Ml IVPB Infused Q24H JAIME Infusion Sodium Chloride 1,000 mls @ 100 mls/hr 01/01/23 23:55 01/04/23 06:36 Normal Saline Iv IV CONT 100 mls/hr .Q10H JAIME Administration Leflunomide 20 mg 01/02/23 09:00 01/04/23 09:09 Leflunomide 20 Mg Tablet PO 20 mg DAILY JAIME Administration Upadacitinib [Rinvoq 15 mg 01/02/23 09:00 ] 15 Mg Tablet PO 02/01/23 08:59 Extended Release 24 DAILY JAIME Hr Ondansetron HCl 4 mg 01/03/23 07:43 01/03/23 08:07 Ondansetron Inj 4 Mg/2 Ml Vial IV PUSH 4 mg TID PRN Administration Nausea And Vomiting Ondansetron HCl 4 mg 01/03/23 09:24 Ondansetron Inj 4 Mg/2 Ml Vial IV PUSH ONCE PRN Nausea Rosuvastatin Calcium 10 mg 01/02/23 09:00 01/04/23 09:09 Rosuvastatin 10 Mg Tablet PO 10 mg DAILY JAIME Administration Topiramate 100 mg 01/01/23 23:40 01/04/23 09:09 Topiramate 100 Mg Tablet PO 100 mg Q12HR JAIME Administration Tramadol HCl 50 mg 01/01/23 23:40 01/03/23 15:20 Tramadol Hcl (*Crx) 50 Mg Tablet PO 50 mg Q4-6H PRN Administration
[2023-01-04] MEDS: POTASSIUM CHLORIDE 20 MEQ TABLET 40 MEQ PO (16:27)
[2023-01-04 18:11] VITALS: TEMP 38.6
[2023-01-04] MEDS: ACETAMINOPHEN 325 MG TABLET 650 MG PO (18:11)
[2023-01-04 20:00] VITALS: BP 125/73; PULSE 113; RESP 14; TEMP 39; O2SAT 98
[2023-01-05] VITALS (16 sets, daily range): BP systolic 97–136; BP diastolic 68–89; PULSE 65–132; RESP 16–22; TEMP 36.2–39.3; O2SAT 95–100
[2023-01-05] MEDS: HYDROmorphone HCL INJ (*CRX) 1 MG/ML SYR 2 MG IV PUSH ×2 (00:25→04:13)
[2023-01-05] MEDS: ACETAMINOPHEN 325 MG TABLET 650 MG PO ×2 (00:26→08:45)
[2023-01-05] MEDS: SODIUM CHLORIDE 0.9% IV 1,000 ML 100 ML IV CONT (03:26)
[2023-01-05 05:49] LABS: Basophils Absolute Auto 0.1 K/mm3 (0.0-0.1); Basophils Percent Auto 0.4 % (0.2-1.2); Eosinophils Percent Auto 0.1 % (0-4.4); Hematocrit 35.2 % (37.0-47.0); Hemoglobin 11.3 g/dL (12.0-15.0); Immature Granulocyte Absolute 0.06 K/mm3 (0.00-0.031); Immature Granulocyte Percent A 0.5 % (0-0.5); Lymphocytes Absolute Auto 0.94 K/mm3 (0.9-3.2); Lymphocytes Percent Auto 7.5 % (18.3-44.2); Mean Corpuscular HGB Conc 32.1 g/dl (32-36); Mean Corpuscular Hemoglobin 30.4 pg (26-34); Mean Corpuscular Volume 94.6 fl (80-100); Mean Platelet Volume 8.3 fl (7.4-10.4); Monocytes Absolute Auto 0.8 K/mm3 (0.1-0.6); Monocytes Percent Auto 6.7 % (2.6-8.5); Neutrophils Absolute Auto 10.6 K/mm3 (1.3-6.7); Neutrophils Percent Auto 84.8 % (45.5-73.1); Platelet Count Result 176 k/mm3 (150-375); Red Blood Count 3.72 M/mm3 (4.2-5.4); Red Cell Distribution Width 14.4 % (11.5-14.5); White Blood Count 12.5 K/mm3 (4.5-10.0)
[2023-01-05 05:55] LABS: Alanine Aminotransferase 38 U/L (6-35); Albumin Level 3.9 g/dL (3.5-5.1); Alkaline Phosphatase 67 U/L (38-126); Anion Gap 8 mmol/L (8-16); Aspartate Amino Transferase 60 U/L (14-36); Bilirubin,Total 0.5 mg/dL (0.2-1.3); Blood Urea Nitrogen 11 mg/dL (7-17); Calcium 7.7 mg/dL (8.4-10.2); Carbon Dioxide 21 mmol/L (22-30); Chloride 110 mmol/L (98-107); Estimated CRCL calculation 46 ml/min; Estimated Glomerular Filt Rate 51; Glucose 94 mg/dL (65-110); Magnesium 1.8 mg/dL (1.6-2.3); Potassium 3.2 mmol/L (3.4-5.0); Sodium 139 mmol/L (137-145)
[2023-01-05] MEDS: LEFLUNOMIDE 20 MG TABLET PO (08:26)
[2023-01-05] MEDS: TOPIRAMATE 100 MG TABLET PO ×2 (08:26→20:59)
[2023-01-05] MEDS: VERAPAMIL HCL 180 MG TABLET ER PO (08:26)
[2023-01-05] MEDS: ROSUVASTATIN 10 MG TABLET PO (08:26)
[2023-01-05] MEDS: ESTROGENS, CONJUGATED 0.625 MG TABLET PO (08:26)
[2023-01-05] MEDS: VENLAFAXINE HCL XR 75 MG CAP.ER.24H PO (08:26)
[2023-01-05 08:50] LABS: Appearance Urine Clear (Clear); Bacteria Urine None Seen /hpf; Bilirubin Urine Negative (Negative); Blood Urine 3+ (Negative); Color Urine Yellow (Yellow); Glucose Urine UA Negative (Negative); Ketones Urine Negative (Negative); Leukocyte Esterase Ur 2+ LEU/UL (NEGATIVE); Nitrate Urine Negative (Negative); Non Pathogenic Casts 0-2; Protein Urine 2+ mg/dL (Negative); RBC Urine 51-100 /hpf (0-2); Squamous Epithelial Cell Urine Occasional /hpf (Few); Urobilinogen Urine 0.2 mg/dL (<2.0); WBC Urine 51-100 /hpf (0-3); pH Urine 6.5 (5.0-9.0)
[2023-01-05 09:01] LABS: Add Urine Microscopic? YES
[2023-01-05] MEDS: CEFEPIME 2 GM/NS 50 ML 2 GM/50 ML BAG IVPB ×2 (10:06→21:00)
--- NOTE | 2023-01-05 10:51 | PM.IMPN ---
Progress Note: A&P Assessment and Plan (1) Kidney stones: Code(s): N20.0 - Calculus of kidney Status: Acute Assessment and Plan: pt is sp Cystoscopy, left retrograde pyelogram, left ureteroscopy with stone extraction, holmium laser of renal calculi+ left ureteral stent plan in 11/2022 Plans noted for removal of left ureteral stent (2) Urinary tract infection: Code(s): N39.0 - Urinary tract infection, site not specified Status: Acute Assessment and Plan: Continue with Rocephin most likely an infected kidney stone. No septic post procedure Will broaden the coverage with vancomycin and cefepime (3) Migraines: Code(s): G43.909 - Migraine, unspecified, not intractable, without status migrainosus Status: Acute Assessment and Plan: Continue with Topamax Continue with verapamil Continue with Effexor (4) Hyperlipidemia: Code(s): E78.5 - Hyperlipidemia, unspecified Status: Acute Assessment and Plan: Continue with Crestor (5) Sepsis: Code(s): A41.9 - Sepsis, unspecified organism Status: Acute Assessment and Plan: with tachycardia fever panculture Recheck urine CT abdomen pelvis Broad-spectrum antibiotics with vancomycin and cefepime. Ceftriaxone Alternate Tylenol and Motrin Plan History of rheumatoid arthritis on leflunomide and upadacitinib Subjective Date/time seen: 01/05/23 10:51 Interval history: 57-year-old female patient who has had a history of kidney stones at least 5 times now.? The patient presented to the emergency room today with dysuria and left flank pain on and off for at least the last 2 weeks.? However became worse today.? She had some nausea and vomiting today.? No fever chills.? Chest x-ray was read as no acute cardiopulmonary process bilateral nephrolithiasis.? Abdominal x-ray?Redemonstration of a cluster of stones at the left UPJ. The known 3 mm left UVJ calcification is faintly visible. Bilateral nephrolithiasis.? Abdominal pelvis CT was read as Cluster of 5 mm and 3 mm calcifications of the left UPJ. 3 mm calcification at the left UVJ. Moderate proximal left hydronephrosis.? The patient was given Rocephin, Zofran, IV fluids, and Dilaudid in the emergency room. Pt sp Cystoscopy, left retrograde pyelogram, left ureteroscopy with stone extraction, holmium laser of renal calculi, left ureteral stent placement 4.8 [place] contour 01/04/2023 patient is of left flank pain left groin discomfort needing pain medication remains afebrile, reports passing some stones 01/05/2023: Febrile overnight. Tachycardic. Confusion. at bedside. Discomfort for in her upper thighs and lower abdomen. Still complains of left flank pain. No nausea vomiting. Review of Systems Review of Systems: All systems reviewed & are unremarkable except as noted in HPI and below Exam Narrative: GENERAL: The patient is well developed, Toxic looking HEENT: Nonicteric sclerae, PERRLA, EOMI. Oropharynx clear. Moist mucous membranes. Conjunctivae appear well perfused. CHEST: Chest wall is nontender. HEART: tachycardic, regular rhythm without murmur, rubs, or gallops LUNGS: Clear to auscultation bilaterally. no respiratory distress ABDOMEN: Soft, positive bowel sounds, lower quadrant tenderness, no organomegaly. Left flank tenderness SKIN: No rash, no excessive bruising, petechiae, or purpura. NEUROLOGIC: Cranial nerves II-XII intact, alert and oriented x 3, no gross motor deficits EXTREMITIES: no edema, cyanosis or clubbing Objective Data Vital Signs Vital Signs: Vital Signs - 24 hr 01/04/23 14:00 01/04/23 18:11 01/04/23 20:00 Temperature 98.2 F 101.5 F H 102.2 F H Pulse Rate 83 113 H Respiratory Rate 14 14 Blood Pressure 128/81 125/73 Pulse Oximetry 99 98 Oxygen Delivery 01/04/23 20:00 01/05/23 00:16 01/05/23 00:26 Temperature 102.7 F H 102.7 F H Pulse Rate Respiratory Rate Blood Pressure Puls
[2023-01-05] MEDS: IBUPROFEN 400 MG TABLET PO (12:43)
[2023-01-05] MEDS: ONDANSETRON INJ 4 MG/2 ML VIAL IV PUSH (12:44)
--- NOTE | 2023-01-05 15:31 | WPDUROPN2 ---
Progress Note: A&P Assessment and Plan (1) Left ureteral calculus: Code(s): N20.1 - Calculus of ureter Status: Acute Assessment and Plan: Severe bladder irritability, abdominal pain, nausea vomiting consistent with intractable left ureteral stent pain - similar to experiences she has had the past. KUB yesterday and CT scan today showed no identifiable ureteral stone fragments along the course of the left ureter there are likely to obstruct. In light of that opted to proceed with ureteral stent removal. Fever and wu nephric inflammation suggestive possible pyelonephritis. Agree with ongoing antibiotics and observation pending culture results Subjective Subjective Date/Time Seen: 01/05/23 15:31 Interval history: Severe, intractable left stent pain Review of Systems Review of Systems: All systems reviewed & are unremarkable except as noted in HPI and below Exam Const: General: no acute distress Resp: Effort & Inspection: normal respiratory effort GI: Inspection: non-distended GI Palp: No abdominal tenderness and No Guarding due to palpation present (GI) Auscultation: normal bowel sounds Objective Data Vital Signs Vital Signs: Vital Signs - 24 hr 01/04/23 18:11 01/04/23 20:00 01/04/23 20:00 Temperature 101.5 F H 102.2 F H Pulse Rate 113 H Respiratory Rate 14 Blood Pressure 125/73 Pulse Oximetry 98 Oxygen Delivery Room Air 01/05/23 00:16 01/05/23 00:26 01/05/23 06:54 Temperature 102.7 F H 102.7 F H 100.1 F H Pulse Rate 132 H Respiratory Rate 22 H Blood Pressure 126/89 Pulse Oximetry 97 Oxygen Delivery 01/05/23 08:45 01/05/23 08:40 01/05/23 10:54 Temperature 102.7 F H 102.7 F H 99.1 F Pulse Rate Respiratory Rate Blood Pressure Pulse Oximetry Oxygen Delivery 01/05/23 09:45 01/05/23 12:43 01/05/23 14:48 Temperature 99.2 F 99.2 F 99.7 F H Pulse Rate 80 Respiratory Rate 16 Blood Pressure 97/68 L Pulse Oximetry 95 Oxygen Delivery Intake/Output Intake/Output: Intake & Output 01/02/23 01/03/23 01/04/23 01/05/23 23:59 23:59 23:59 23:59 Intake Total 2910 3170 4090 1490 Output Total 550 2550 600 800 Balance 2360 620 3490 690 Meds/Results Medications: Active Medications Generic Name Dose Route Start Last Admin Trade Name Freq PRN Reason Stop Dose Admin Acetaminophen 650 mg 01/04/23 17:58 01/05/23 08:45 Acetaminophen 325 Mg Tablet PO 650 mg Q6H PRN Administration Mild Pain (1-3) or Fever Hydrocodone Bitart/Acetaminophen 1 tab 01/04/23 11:33 01/04/23 12:00 Hydrocodone/Acetaminophen (*Crx) 5-325 Mg Tablet PO 1 tab Q4H PRN Administration Pain Rated 4-6 Diphenhydramine HCl 12.5 mg 01/03/23 00:14 01/03/23 00:53 Diphenhydramine Hcl Inj 50 Mg/Ml Vial IV PUSH 12.5 mg Q4H PRN Administration Itching Enoxaparin Sodium 40 mg 01/06/23 09:00 Enoxaparin 40 Mg/0.4 Ml Syringe SUB-Q DAILY JAIME Estrogens Conjugated 0.625 mg 01/02/23 09:00 01/05/23 08:26 Estrogens, Conjugated 0.625 Mg Tablet PO 0.625 mg DAILY JAIME Administration Fentanyl Citrate 25 mcg 01/03/23 09:23 01/03/23 09:31 Fentanyl Citrate Inj (*Crx) 100 Mcg/2 Ml Vial IV PUSH 25 mcg Q2M PRN Administration Pain Fentanyl Citrate 25 mcg 01/03/23 09:24 01/03/23 11:32 Fentanyl Citrate Inj (*Crx) 100 Mcg/2 Ml Vial IV PUSH 25 mcg Q2M PRN Administration Pain Hydromorphone HCl 0.2 mg 01/05/23 10:29 Hydromorphone Hcl Inj (*Crx) 1 Mg/Ml Syr IV PUSH Q3H PRN Pain Rated 4-6 Hydromorphone HCl 0.5 mg 01/05/23 10:29 Hydromorphone Hcl Inj (*Crx) 1 Mg/Ml Syr IV PUSH Q3H PRN Pain Rated 7-10 Sodium Chloride 1,000 mls @ 100 mls/hr 01/01/23 23:55 01/05/23 03:26 Normal Saline Iv IV CONT 100 mls/hr .Q10H JAIME Administration Cefepime HCl 2 gm in 50 mls @ 100 mls/hr 01/05/23 09:00 01/05/23 10:06 Maxipime 2 Gm/Ns 50 Ml IVPB 100 mls/hr
[2023-01-05] MEDS: PANTOPRAZOLE 40 MG TABLET PO (17:18)
[2023-01-05] MEDS: CALCIUM CARBONATE (TUMS) 500 MG (200 MG ELEMENTAL) PO (17:18)
[2023-01-06] VITALS (16 sets, daily range): BP systolic 127–141; BP diastolic 75–89; PULSE 89–115; RESP 18–20; TEMP 37–39.4; O2SAT 97–100
[2023-01-06] MEDS: ZOLPIDEM TARTRATE (*CRX) 5 MG TABLET 10 MG PO ×2 (00:47→22:27)
[2023-01-06 05:46] LABS: Basophils Absolute Auto 0.1 K/mm3 (0.0-0.1); Basophils Percent Auto 0.4 % (0.2-1.2); Eosinophils Absolute Auto 0.5 K/mm3 (0-0.3); Eosinophils Percent Auto 3.7 % (0-4.4); Hematocrit 32.4 % (37.0-47.0); Hemoglobin 10.5 g/dL (12.0-15.0); Immature Granulocyte Percent A 0.8 % (0-0.5); Lymphocytes Absolute Auto 0.51 K/mm3 (0.9-3.2); Lymphocytes Percent Auto 3.9 % (18.3-44.2); Mean Corpuscular HGB Conc 32.4 g/dl (32-36); Mean Corpuscular Hemoglobin 30.2 pg (26-34); Mean Corpuscular Volume 93.1 fl (80-100); Mean Platelet Volume 8.8 fl (7.4-10.4); Monocytes Absolute Auto 1.1 K/mm3 (0.1-0.6); Monocytes Percent Auto 8.1 % (2.6-8.5); Neutrophils Absolute Auto 10.8 K/mm3 (1.3-6.7); Neutrophils Percent Auto 83.1 % (45.5-73.1); Platelet Count Result 155 k/mm3 (150-375); Red Blood Count 3.48 M/mm3 (4.2-5.4); Red Cell Distribution Width 14.6 % (11.5-14.5)
[2023-01-06 06:03] LABS: Alanine Aminotransferase 57 U/L (6-35); Albumin Level 3.5 g/dL (3.5-5.1); Alkaline Phosphatase 72 U/L (38-126); Anion Gap 8 mmol/L (8-16); Aspartate Amino Transferase 102 U/L (14-36); Bilirubin,Total 0.7 mg/dL (0.2-1.3); Blood Urea Nitrogen 11 mg/dL (7-17); Calcium 8.1 mg/dL (8.4-10.2); Carbon Dioxide 19 mmol/L (22-30); Chloride 110 mmol/L (98-107); Estimated CRCL calculation 50 ml/min; Estimated Glomerular Filt Rate 57; Glucose 103 mg/dL (65-110); Magnesium 1.8 mg/dL (1.6-2.3); Potassium 2.7 mmol/L (3.4-5.0); Sodium 137 mmol/L (137-145)
[2023-01-06] MEDS: SODIUM CHLORIDE 0.9% IV 1,000 ML 100 ML IV CONT ×2 (06:44→22:48)
[2023-01-06] MEDS: POTASSIUM CHLORIDE 20 MEQ PACKET (FOR LIQUID) 40 MEQ PO (06:44)
[2023-01-06] MEDS: CALCIUM CARBONATE (TUMS) 500 MG (200 MG ELEMENTAL) PO (08:33)
[2023-01-06] MEDS: CEFEPIME 2 GM/NS 50 ML 2 GM/50 ML BAG IVPB ×2 (08:35→20:04)
[2023-01-06] MEDS: PANTOPRAZOLE 40 MG TABLET PO (08:37)
[2023-01-06] MEDS: TOPIRAMATE 100 MG TABLET PO ×2 (08:37→20:01)
[2023-01-06] MEDS: VENLAFAXINE HCL XR 75 MG CAP.ER.24H PO (08:37)
[2023-01-06] MEDS: ROSUVASTATIN 10 MG TABLET PO (08:37)
[2023-01-06] MEDS: VERAPAMIL HCL 180 MG TABLET ER PO (08:37)
[2023-01-06] MEDS: ENOXAPARIN 40 MG/0.4 ML SYRINGE SUB-Q (08:37)
[2023-01-06] MEDS: ESTROGENS, CONJUGATED 0.625 MG TABLET PO (08:37)
[2023-01-06] MEDS: LEFLUNOMIDE 20 MG TABLET PO (08:38)
[2023-01-06] MEDS: ACETAMINOPHEN 325 MG TABLET 650 MG PO ×2 (08:49→20:01)
[2023-01-06] MEDS: HYDROcodone/acetaminophen (*CRX) 5-325 MG TABLET 1 TAB PO ×3 (10:58→20:01)
[2023-01-06] MEDS: POTASSIUM CHLORIDE INJ 40 MEQ in SODIUM CHLORIDE 0.9% IV 500 ML 130 MEQ IVPB (11:52)
--- NOTE | 2023-01-06 13:24 | WPDUROPN2 ---
Progress Note: A&P Assessment and Plan (1) Left ureteral calculus: Code(s): N20.1 - Calculus of ureter Status: Acute Assessment and Plan: Severe bladder irritability, abdominal pain, nausea vomiting consistent with intractable left ureteral stent pain - similar to experiences she has had the past. KUB yesterday and CT scan today showed no identifiable ureteral stone fragments along the course of the left ureter there are likely to obstruct. In light of that opted to proceed with ureteral stent removal. Fever and wu nephric inflammation suggestive possible pyelonephritis. Agree with ongoing antibiotics and observation pending culture results Fever curve downtrending, WBC stable at 13 will continue to monitor and consider REINALDO vs CT if persistent pain and fever Subjective Subjective Date/Time Seen: 01/06/23 13:24 Interval history: spiked a fever overnight, flank pain improved better than when stent was in, but still present. afebrile at this time, not tachycardic. No N/V. Review of Systems Review of Systems: All systems reviewed & are unremarkable except as noted in HPI and below Constitutional: Constitutional: Reports no additional constitutional complaints Eyes: Eyes: Reports no additional eye complaints Exam Const: General: no acute distress HENMT: Head: normocephalic and atraumatic Eyes: Sclera: sclerae normal Resp: Effort & Inspection: normal respiratory effort GI: Inspection: non-distended GI Palp: No abdominal tenderness and No Guarding due to palpation present (GI) Psych: Appearance: grossly normal Objective Data Vital Signs Vital Signs: Vital Signs - 24 hr 01/05/23 14:48 01/05/23 13:40 01/05/23 16:00 Temperature 37.6 C H 37.1 C Pulse Rate 80 65 Respiratory Rate 16 Blood Pressure 97/68 L Pulse Oximetry 95 Oxygen Delivery 01/05/23 20:22 01/05/23 20:00 01/05/23 20:00 Temperature 36.2 C L Pulse Rate 102 H 95 Respiratory Rate 20 Blood Pressure 136/80 Pulse Oximetry 100 Oxygen Delivery Room Air 01/06/23 00:00 01/06/23 04:00 01/06/23 05:33 Temperature 38.3 C H Pulse Rate 104 H 109 H 103 H Respiratory Rate 18 Blood Pressure 140/86 Pulse Oximetry 98 Oxygen Delivery 01/06/23 08:49 01/06/23 08:53 01/06/23 10:56 Temperature 39.4 C H 39.4 C H 37.0 C Pulse Rate Respiratory Rate Blood Pressure Pulse Oximetry Oxygen Delivery 01/06/23 09:45 Temperature 37.9 C H Pulse Rate Respiratory Rate Blood Pressure Pulse Oximetry Oxygen Delivery Intake/Output Intake/Output: Intake & Output 01/03/23 01/04/23 01/05/23 01/06/23 23:59 23:59 23:59 23:59 Intake Total 3170 4090 2840 150 Output Total 2550 600 800 Balance 620 3490 2040 150 Meds/Results Medications: Active Medications Generic Name Dose Route Start Last Admin Trade Name Freq PRN Reason Stop Dose Admin Acetaminophen 650 mg 01/04/23 17:58 01/06/23 08:49 Acetaminophen 325 Mg Tablet PO 650 mg Q6H PRN Administration Mild Pain (1-3) or Fever Hydrocodone Bitart/Acetaminophen 1 tab 01/04/23 11:33 01/06/23 10:58 Hydrocodone/Acetaminophen (*Crx) 5-325 Mg Tablet PO 1 tab Q4H PRN Administration Pain Rated 4-6 Calcium Carbonate 200 mg 01/05/23 16:56 01/06/23 08:33 Calcium Carbonate (Tums) 500 Mg (200 Mg Elemental) PO 200 mg Q6H PRN Administration Indigestion Diphenhydramine HCl 12.5 mg 01/03/23 00:14 01/03/23 00:53 Diphenhydramine Hcl Inj 50 Mg/Ml Vial IV PUSH 12.5 mg Q4H PRN Administration Itching Enoxaparin Sodium 40 mg 01/06/23 09:00 01/06/23 08:37 Enoxaparin 40 Mg/0.4 Ml Syringe SUB-Q 40 mg DAILY JAIME Administration Estrogens Conjugated 0.625 mg 01/02/23 09:00 01/06/23 08:37 Estrogens, Conjugated 0.625 Mg Tablet PO 0.625 mg DAILY JAIME Administration Fentanyl Citrate 25 mcg 01/03/23 09:23 01/03/23 09:31 Fentanyl Citrate Inj (*Crx) 100 Mcg/2 Ml
--- NOTE | 2023-01-06 14:32 | PM.IMPN ---
Progress Note: A&P Assessment and Plan (1) Kidney stones: Code(s): N20.0 - Calculus of kidney Status: Acute Assessment and Plan: pt is sp Cystoscopy, left retrograde pyelogram, left ureteroscopy with stone extraction, holmium laser of renal calculi+ left ureteral stent plan in 11/2022 status post removal left ureteral stent (2) Urinary tract infection: Code(s): N39.0 - Urinary tract infection, site not specified Status: Acute Assessment and Plan: Continue with Rocephin most likely an infected kidney stone. No septic post procedure Broadened the coverage with vancomycin and cefepime Continue to monitor follow culture which been negative to date (3) Migraines: Code(s): G43.909 - Migraine, unspecified, not intractable, without status migrainosus Status: Acute Assessment and Plan: Continue with Topamax Continue with verapamil Continue with Effexor (4) Hyperlipidemia: Code(s): E78.5 - Hyperlipidemia, unspecified Status: Acute Assessment and Plan: Continue with Crestor (5) Sepsis: Code(s): A41.9 - Sepsis, unspecified organism Status: Acute Assessment and Plan: with tachycardia fever panculture Recheck urine CT abdomen pelvis Broad-spectrum antibiotics with vancomycin and cefepime. Ceftriaxone Alternate Tylenol and Motrin Plan History of rheumatoid arthritis on leflunomide and upadacitinib Subjective Date/time seen: 01/06/23 14:32 Interval history: [place] a lot better after the stent was removed. Patient was doing okay yesterday ever started having fever again this morning. Still complains of left flank pain and lower abdominal discomfort. No nausea vomiting at this time. Discussed with the nursing staff. Discussed with the at bedside. Review of Systems Review of Systems: All systems reviewed & are unremarkable except as noted in HPI and below Exam Narrative: GENERAL: The patient is well developed, ill-appearing HEENT: Nonicteric sclerae, PERRLA, EOMI. Oropharynx clear. Moist mucous membranes. Conjunctivae appear well perfused. CHEST: Chest wall is nontender. HEART: Regular rate and regular rhythm without murmur, rubs, or gallops LUNGS: Clear to auscultation bilaterally. no respiratory distress ABDOMEN: Soft, positive bowel sounds, lower quadrant tenderness, no organomegaly. Left flank tenderness SKIN: No rash, no excessive bruising, petechiae, or purpura. NEUROLOGIC: Cranial nerves II-XII intact, alert and oriented x 3, no gross motor deficits EXTREMITIES: no edema, cyanosis or clubbing Objective Data Vital Signs Vital Signs: Vital Signs - 24 hr 01/05/23 14:48 01/05/23 16:00 01/05/23 20:22 Temperature 99.7 F H 97.2 F L Pulse Rate 80 65 102 H Respiratory Rate 16 20 Blood Pressure 97/68 L 136/80 Pulse Oximetry 95 100 Oxygen Delivery 01/05/23 20:00 01/05/23 20:00 01/06/23 00:00 Temperature Pulse Rate 95 104 H Respiratory Rate Blood Pressure Pulse Oximetry Oxygen Delivery Room Air 01/06/23 04:00 01/06/23 05:33 01/06/23 08:49 Temperature 100.9 F H 102.9 F H Pulse Rate 109 H 103 H Respiratory Rate 18 Blood Pressure 140/86 Pulse Oximetry 98 Oxygen Delivery 01/06/23 08:53 01/06/23 10:56 01/06/23 09:45 Temperature 102.9 F H 98.6 F 100.2 F H Pulse Rate Respiratory Rate Blood Pressure Pulse Oximetry Oxygen Delivery 01/06/23 11:55 Temperature 98.6 F Pulse Rate Respiratory Rate Blood Pressure Pulse Oximetry Oxygen Delivery Intake/Output Intake/Output: Intake & Output 01/03/23 01/04/23 01/05/23 01/06/23 23:59 23:59 23:59 23:59 Intake Total 3170 4090 2840 150 Output Total 2550 600 800 Balance 620 3490 2040 150 Meds/Results Medications: Active Medications Generic Name Dose Route Start Last Admin Trade Name Freq PRN Reason Stop Dose Admin Acetaminophen 650 mg 01/04/23 17:58 01/06/23 08:
[2023-01-07] VITALS (13 sets, daily range): BP systolic 110–122; BP diastolic 71–80; PULSE 80–99; RESP 16–20; TEMP 37–38.2; O2SAT 94–97
[2023-01-07 05:48] LABS: Basophils Percent Auto 0.2 % (0.2-1.2); Eosinophils Percent Auto 0.4 % (0-4.4); Hematocrit 28.7 % (37.0-47.0); Hemoglobin 9.1 g/dL (12.0-15.0); Immature Granulocyte Absolute 0.03 K/mm3 (0.00-0.031); Immature Granulocyte Percent A 0.3 % (0-0.5); Lymphocytes Absolute Auto 0.83 K/mm3 (0.9-3.2); Lymphocytes Percent Auto 9.3 % (18.3-44.2); Mean Corpuscular HGB Conc 31.7 g/dl (32-36); Mean Corpuscular Hemoglobin 29.3 pg (26-34); Mean Corpuscular Volume 92.3 fl (80-100); Monocytes Absolute Auto 0.9 K/mm3 (0.1-0.6); Monocytes Percent Auto 10.2 % (2.6-8.5); Neutrophils Absolute Auto 7.1 K/mm3 (1.3-6.7); Neutrophils Percent Auto 79.6 % (45.5-73.1); Platelet Count Result 127 k/mm3 (150-375); Red Blood Count 3.11 M/mm3 (4.2-5.4); Red Cell Distribution Width 14.6 % (11.5-14.5)
[2023-01-07 05:54] LABS: Alanine Aminotransferase 53 U/L (6-35); Albumin Level 3.2 g/dL (3.5-5.1); Alkaline Phosphatase 71 U/L (38-126); Anion Gap 2 mmol/L (8-16); Aspartate Amino Transferase 80 U/L (14-36); Bilirubin,Total 0.6 mg/dL (0.2-1.3); Blood Urea Nitrogen 9 mg/dL (7-17); Calcium 7.7 mg/dL (8.4-10.2); Carbon Dioxide 19 mmol/L (22-30); Chloride 112 mmol/L (98-107); Estimated CRCL calculation 62 ml/min; Estimated Glomerular Filt Rate > 60; Glucose 89 mg/dL (65-110); Potassium 3.1 mmol/L (3.4-5.0); Sodium 133 mmol/L (137-145)
[2023-01-07] MEDS: ACETAMINOPHEN 325 MG TABLET 650 MG PO ×2 (05:58→18:04)
[2023-01-07] MEDS: HYDROcodone/acetaminophen (*CRX) 5-325 MG TABLET 1 TAB PO ×4 (05:58→22:16)
[2023-01-07] MEDS: CEFEPIME 2 GM/NS 50 ML 2 GM/50 ML BAG IVPB ×2 (08:33→20:17)
[2023-01-07] MEDS: ENOXAPARIN 40 MG/0.4 ML SYRINGE SUB-Q (08:36)
[2023-01-07] MEDS: VENLAFAXINE HCL XR 75 MG CAP.ER.24H PO (08:37)
[2023-01-07] MEDS: PANTOPRAZOLE 40 MG TABLET PO (08:37)
[2023-01-07] MEDS: ESTROGENS, CONJUGATED 0.625 MG TABLET PO (08:37)
[2023-01-07] MEDS: VERAPAMIL HCL 180 MG TABLET ER PO (08:37)
[2023-01-07] MEDS: LEFLUNOMIDE 20 MG TABLET PO (08:37)
[2023-01-07] MEDS: ROSUVASTATIN 10 MG TABLET PO (08:37)
[2023-01-07] MEDS: TOPIRAMATE 100 MG TABLET PO ×2 (08:37→20:17)
--- NOTE | 2023-01-07 09:04 | WPDUROPN2 ---
Progress Note: A&P Assessment and Plan (1) Left ureteral calculus: Code(s): N20.1 - Calculus of ureter Status: Acute Assessment and Plan: continue IV abx Fever curve downtrending, WBC down at 9 will continue to monitor and ccheckRUS given persistent pain Subjective Subjective Date/Time Seen: 01/07/23 09:04 Interval history: feeling better, fever decreasing, s till with some urgency. flank pain improved. no emesis. WBC 9 Review of Systems Review of Systems: All systems reviewed & are unremarkable except as noted in HPI and below Constitutional: Constitutional: Reports no additional constitutional complaints Eyes: Eyes: Reports no additional eye complaints Exam Const: General: no acute distress HENMT: Head: normocephalic and atraumatic Eyes: Sclera: sclerae normal Resp: Effort & Inspection: normal respiratory effort GI: Inspection: non-distended GI Palp: No abdominal tenderness and No Guarding due to palpation present (GI) Psych: Appearance: grossly normal Objective Data Vital Signs Vital Signs: Vital Signs - 24 hr 01/06/23 10:56 01/06/23 09:45 01/06/23 11:55 Temperature 37.0 C 37.9 C H 37.0 C Pulse Rate Respiratory Rate Blood Pressure Pulse Oximetry 01/06/23 14:00 01/06/23 12:00 01/06/23 16:00 Temperature 37.2 C Pulse Rate 89 106 H 89 Respiratory Rate 20 Blood Pressure 141/75 H Pulse Oximetry 100 01/06/23 20:01 01/06/23 20:45 01/06/23 20:00 Temperature 38.6 C H 38.6 C H Pulse Rate 100 101 H Respiratory Rate 20 Blood Pressure 127/89 Pulse Oximetry 97 01/07/23 00:00 01/07/23 04:00 01/07/23 05:50 Temperature 38.2 C H Pulse Rate 81 92 90 Respiratory Rate 20 Blood Pressure 122/80 Pulse Oximetry 97 01/07/23 05:58 Temperature 38.2 C H Pulse Rate Respiratory Rate Blood Pressure Pulse Oximetry Intake/Output Intake/Output: Intake & Output 01/04/23 01/05/23 01/06/23 01/07/23 23:59 23:59 23:59 23:59 Intake Total 4090 2840 1800 400 Output Total 600 800 Balance 3490 2040 1800 400 Meds/Results Medications: Active Medications Generic Name Dose Route Start Last Admin Trade Name Freq PRN Reason Stop Dose Admin Acetaminophen 650 mg 01/04/23 17:58 01/07/23 05:58 Acetaminophen 325 Mg Tablet PO 650 mg Q6H PRN Administration Mild Pain (1-3) or Fever Hydrocodone Bitart/Acetaminophen 1 tab 01/04/23 11:33 01/07/23 05:58 Hydrocodone/Acetaminophen (*Crx) 5-325 Mg Tablet PO 1 tab Q4H PRN Administration Pain Rated 4-6 Calcium Carbonate 200 mg 01/05/23 16:56 01/06/23 08:33 Calcium Carbonate (Tums) 500 Mg (200 Mg Elemental) PO 200 mg Q6H PRN Administration Indigestion Diphenhydramine HCl 12.5 mg 01/03/23 00:14 01/03/23 00:53 Diphenhydramine Hcl Inj 50 Mg/Ml Vial IV PUSH 12.5 mg Q4H PRN Administration Itching Enoxaparin Sodium 40 mg 01/06/23 09:00 01/07/23 08:36 Enoxaparin 40 Mg/0.4 Ml Syringe SUB-Q 40 mg DAILY JAIME Administration Estrogens Conjugated 0.625 mg 01/02/23 09:00 01/07/23 08:37 Estrogens, Conjugated 0.625 Mg Tablet PO 0.625 mg DAILY JAIME Administration Fentanyl Citrate 25 mcg 01/03/23 09:23 01/03/23 09:31 Fentanyl Citrate Inj (*Crx) 100 Mcg/2 Ml Vial IV PUSH 25 mcg Q2M PRN Administration Pain Fentanyl Citrate 25 mcg 01/03/23 09:24 01/03/23 11:32 Fentanyl Citrate Inj (*Crx) 100 Mcg/2 Ml Vial IV PUSH 25 mcg Q2M PRN Administration Pain Hydromorphone HCl 0.2 mg 01/05/23 10:29 Hydromorphone Hcl Inj (*Crx) 1 Mg/Ml Syr IV PUSH Q3H PRN Pain Rated 4-6 Hydromorphone HCl 0.5 mg 01/05/23 10:29 Hydromorphone Hcl Inj (*Crx) 1 Mg/Ml Syr IV PUSH Q3H PRN Pain Rated 7-10 Sodium Chloride 1,000 mls @ 100 mls/hr 01/01/23 23:55 01/06/23 22:48 Normal Saline Iv IV CONT 100 mls/hr .Q10H JAIME Administration Cefepime HCl 2 gm in 50 mls @ 100 mls/hr
[2023-01-07] MEDS: SODIUM CHLORIDE 0.9% IV 1,000 ML 100 ML IV CONT (09:56)
[2023-01-07] MEDS: POTASSIUM CHLORIDE INJ 40 MEQ in SODIUM CHLORIDE 0.9% IV 500 ML 130 MEQ IVPB (12:52)
[2023-01-07] MEDS: HYDROmorphone HCL INJ (*CRX) 1 MG/ML SYR 0.5 MG IV PUSH (14:02)
--- NOTE | 2023-01-07 14:22 | PM.IMPN ---
Progress Note: A&P Assessment and Plan (1) Kidney stones: Code(s): N20.0 - Calculus of kidney Status: Acute Assessment and Plan: pt is sp Cystoscopy, left retrograde pyelogram, left ureteroscopy with stone extraction, holmium laser of renal calculi+ left ureteral stent plan in 11/2022 status post removal left ureteral stent (2) Urinary tract infection: Code(s): N39.0 - Urinary tract infection, site not specified Status: Acute Assessment and Plan: Continue with Rocephin most likely an infected kidney stone. No septic post procedure Broadened the coverage with vancomycin and cefepime Continue to monitor follow culture which been negative to date (3) Migraines: Code(s): G43.909 - Migraine, unspecified, not intractable, without status migrainosus Status: Acute Assessment and Plan: Continue with Topamax Continue with verapamil Continue with Effexor (4) Hyperlipidemia: Code(s): E78.5 - Hyperlipidemia, unspecified Status: Acute Assessment and Plan: Continue with Crestor (5) Sepsis: Code(s): A41.9 - Sepsis, unspecified organism Status: Acute Assessment and Plan: with tachycardia fever panculture Recheck urine CT abdomen pelvis Broad-spectrum antibiotics with vancomycin and cefepime. Ceftriaxone Alternate Tylenol and Motrin Plan History of rheumatoid arthritis on leflunomide and upadacitinib Subjective Date/time seen: 01/07/23 14:22 Interval history: Continues to have intermittent fever. Continues to complain of left flank pain and lower abdominal pain. Still has urinary complaints tolerating antibiotics Review of Systems Review of Systems: All systems reviewed & are unremarkable except as noted in HPI and below Exam Narrative: GENERAL: The patient is well developed, well appearing HEENT: Nonicteric sclerae, PERRLA, EOMI. Oropharynx clear. Moist mucous membranes. Conjunctivae appear well perfused. CHEST: Chest wall is nontender. HEART: Regular rate and regular rhythm without murmur, rubs, or gallops LUNGS: Clear to auscultation bilaterally. no respiratory distress ABDOMEN: Soft, positive bowel sounds, lower quadrant tenderness, no organomegaly. Left flank tenderness SKIN: No rash, no excessive bruising, petechiae, or purpura. NEUROLOGIC: Cranial nerves II-XII intact, alert and oriented x 3, no gross motor deficits EXTREMITIES: no edema, cyanosis or clubbing Objective Data Vital Signs Vital Signs: Vital Signs - 24 hr 01/06/23 16:00 01/06/23 20:01 01/06/23 20:45 Temperature 101.5 F H 101.5 F H Pulse Rate 89 100 Respiratory Rate 20 Blood Pressure 127/89 Pulse Oximetry 97 01/06/23 20:00 01/07/23 00:00 01/07/23 04:00 Temperature Pulse Rate 101 H 81 92 Respiratory Rate Blood Pressure Pulse Oximetry 01/07/23 05:50 01/07/23 05:58 01/07/23 09:29 Temperature 100.7 F H 100.8 F H 98.6 F Pulse Rate 90 Respiratory Rate 20 Blood Pressure 122/80 Pulse Oximetry 97 Intake/Output Intake/Output: Intake & Output 01/04/23 01/05/23 01/06/23 01/07/23 23:59 23:59 23:59 23:59 Intake Total 4090 2840 2050 1640 Output Total 600 800 Balance 3490 2040 2050 1640 Meds/Results Medications: Active Medications Generic Name Dose Route Start Last Admin Trade Name Freq PRN Reason Stop Dose Admin Acetaminophen 650 mg 01/04/23 17:58 01/07/23 05:58 Acetaminophen 325 Mg Tablet PO 650 mg Q6H PRN Administration Mild Pain (1-3) or Fever Hydrocodone Bitart/Acetaminophen 1 tab 01/04/23 11:33 01/07/23 09:53 Hydrocodone/Acetaminophen (*Crx) 5-325 Mg Tablet PO 1 tab Q4H PRN Administration Pain Rated 4-6 Calcium Carbonate 200 mg 01/05/23 16:56 01/06/23 08:33 Calcium Carbonate (Tums) 500 Mg (200 Mg Elemental) PO 200 mg Q6H PRN Administration Indigestion Diphenhydramine HCl 12.5 mg 01/03/23 00:14 01/03/23 00:53 Diphenhydrami
[2023-01-07] MEDS: ZOLPIDEM TARTRATE (*CRX) 5 MG TABLET 10 MG PO (22:16)
[2023-01-08] VITALS (7 sets, daily range): BP systolic 107–120; BP diastolic 66–77; PULSE 79–93; RESP 16–20; TEMP 36.2–38; O2SAT 96–100
[2023-01-08] MEDS: SODIUM CHLORIDE 0.9% IV 1,000 ML 100 ML IV CONT ×2 (03:37→16:30)
[2023-01-08] MEDS: HYDROcodone/acetaminophen (*CRX) 5-325 MG TABLET 1 TAB PO ×3 (03:37→20:08)
[2023-01-08] MEDS: traMADol HCL (*CRX) 50 MG TABLET PO (05:50)
[2023-01-08 09:01] LABS: Basophils Percent Auto 0.4 % (0.2-1.2); Eosinophils Absolute Auto 0.1 K/mm3 (0-0.3); Eosinophils Percent Auto 1.2 % (0-4.4); Hemoglobin 8.6 g/dL (12.0-15.0); Immature Granulocyte Absolute 0.05 K/mm3 (0.00-0.031); Immature Granulocyte Percent A 0.6 % (0-0.5); Lymphocytes Absolute Auto 0.96 K/mm3 (0.9-3.2); Lymphocytes Percent Auto 10.7 % (18.3-44.2); Mean Corpuscular HGB Conc 31.9 g/dl (32-36); Mean Corpuscular Hemoglobin 29.5 pg (26-34); Mean Corpuscular Volume 92.5 fl (80-100); Mean Platelet Volume 8.5 fl (7.4-10.4); Monocytes Absolute Auto 1.1 K/mm3 (0.1-0.6); Monocytes Percent Auto 11.9 % (2.6-8.5); Neutrophils Absolute Auto 6.8 K/mm3 (1.3-6.7); Neutrophils Percent Auto 75.2 % (45.5-73.1); Platelet Count Result 126 k/mm3 (150-375); Red Blood Count 2.92 M/mm3 (4.2-5.4); Red Cell Distribution Width 14.8 % (11.5-14.5)
[2023-01-08 09:16] LABS: Alanine Aminotransferase 58 U/L (6-35); Alkaline Phosphatase 100 U/L (38-126); Anion Gap 4 mmol/L (8-16); Aspartate Amino Transferase 74 U/L (14-36); Bilirubin,Total 0.5 mg/dL (0.2-1.3); Blood Urea Nitrogen 8 mg/dL (7-17); Calcium 7.5 mg/dL (8.4-10.2); Carbon Dioxide 20 mmol/L (22-30); Chloride 111 mmol/L (98-107); Estimated CRCL calculation 62 ml/min; Estimated Glomerular Filt Rate > 60; Glucose 84 mg/dL (65-110); Magnesium 2.1 mg/dL (1.6-2.3); Potassium 3.2 mmol/L (3.4-5.0); Sodium 135 mmol/L (137-145)
[2023-01-08 09:52] LABS: Vancomycin Trough < 5.0 ug/mL (10.0-20.0)
[2023-01-08] MEDS: ENOXAPARIN 40 MG/0.4 ML SYRINGE SUB-Q (10:03)
[2023-01-08] MEDS: LEFLUNOMIDE 20 MG TABLET PO (10:04)
[2023-01-08] MEDS: VERAPAMIL HCL 180 MG TABLET ER PO (10:04)
[2023-01-08] MEDS: VENLAFAXINE HCL XR 75 MG CAP.ER.24H PO (10:04)
[2023-01-08] MEDS: PANTOPRAZOLE 40 MG TABLET PO (10:04)
[2023-01-08] MEDS: ESTROGENS, CONJUGATED 0.625 MG TABLET PO (10:04)
[2023-01-08] MEDS: TOPIRAMATE 100 MG TABLET PO ×2 (10:04→20:07)
[2023-01-08] MEDS: ROSUVASTATIN 10 MG TABLET PO (10:05)
[2023-01-08] MEDS: HYDROmorphone HCL INJ (*CRX) 1 MG/ML SYR 0.5 MG IV PUSH (10:07)
[2023-01-08] MEDS: CEFEPIME 2 GM/NS 50 ML 2 GM/50 ML BAG IVPB ×2 (10:33→20:38)
--- NOTE | 2023-01-08 15:17 | PM.IMPN ---
Progress Note: A&P Assessment and Plan (1) Kidney stones: Code(s): N20.0 - Calculus of kidney Status: Acute Assessment and Plan: pt is sp Cystoscopy, left retrograde pyelogram, left ureteroscopy with stone extraction, holmium laser of renal calculi+ left ureteral stent plan in 11/2022 status post removal left ureteral stent Recheck ultrasound with no acute findings (2) Urinary tract infection: Code(s): N39.0 - Urinary tract infection, site not specified Status: Acute Assessment and Plan: Continue with Rocephin most likely an infected kidney stone. No septic post procedure Broadened the coverage with vancomycin and cefepime Continue to monitor follow culture which been negative to date (3) Migraines: Code(s): G43.909 - Migraine, unspecified, not intractable, without status migrainosus Status: Acute Assessment and Plan: Continue with Topamax Continue with verapamil Continue with Effexor (4) Hyperlipidemia: Code(s): E78.5 - Hyperlipidemia, unspecified Status: Acute Assessment and Plan: Continue with Crestor (5) Sepsis: Code(s): A41.9 - Sepsis, unspecified organism Status: Acute Assessment and Plan: with tachycardia fever panculture Recheck urine CT abdomen pelvis Broad-spectrum antibiotics with vancomycin and cefepime. Ceftriaxone Alternate Tylenol and Motrin Plan History of rheumatoid arthritis on leflunomide and upadacitinib Subjective Date/time seen: 01/08/23 15:17 Interval history: Still continues to urinary symptoms. Remains febrile but little bit better than what it used to be. Left flank pain persist. Discussed findings of ultrasound with the patient and . Review of Systems Review of Systems: All systems reviewed & are unremarkable except as noted in HPI and below Exam Narrative: GENERAL: The patient is well developed, well appearing HEENT: Nonicteric sclerae, PERRLA, EOMI. Oropharynx clear. Moist mucous membranes. Conjunctivae appear well perfused. CHEST: Chest wall is nontender. HEART: Regular rate and regular rhythm without murmur, rubs, or gallops LUNGS: Clear to auscultation bilaterally. no respiratory distress ABDOMEN: Soft, positive bowel sounds, lower quadrant tenderness, no organomegaly. Left flank tenderness SKIN: No rash, no excessive bruising, petechiae, or purpura. NEUROLOGIC: Cranial nerves II-XII intact, alert and oriented x 3, no gross motor deficits EXTREMITIES: no edema, cyanosis or clubbing Objective Data Vital Signs Vital Signs: Vital Signs - 24 hr 01/07/23 18:04 01/07/23 16:00 01/07/23 20:00 Temperature 100.2 F H Pulse Rate 99 89 Respiratory Rate Blood Pressure Pulse Oximetry 01/07/23 21:26 01/08/23 00:00 01/08/23 04:00 Temperature 99 F Pulse Rate 81 79 93 Respiratory Rate 18 Blood Pressure 119/78 Pulse Oximetry 97 01/08/23 05:41 01/08/23 14:35 Temperature 99.7 F H 97.2 F L Pulse Rate 83 86 Respiratory Rate 20 18 Blood Pressure 118/77 107/66 Pulse Oximetry 96 99 Intake/Output Intake/Output: Intake & Output 01/05/23 01/06/23 01/07/23 01/08/23 23:59 23:59 23:59 23:59 Intake Total 2840 0 3700 1250 Output Total 800 Balance 2040 0 3700 1250 Meds/Results Medications: Active Medications Generic Name Dose Route Start Last Admin Trade Name Freq PRN Reason Stop Dose Admin Acetaminophen 650 mg 01/04/23 17:58 01/07/23 18:04 Acetaminophen 325 Mg Tablet PO 650 mg Q6H PRN Administration Mild Pain (1-3) or Fever Hydrocodone Bitart/Acetaminophen 1 tab 01/04/23 11:33 01/08/23 03:37 Hydrocodone/Acetaminophen (*Crx) 5-325 Mg Tablet PO 1 tab Q4H PRN Administration Pain Rated 4-6 Calcium Carbonate 200 mg 01/05/23 16:56 01/06/23 08:33 Calcium Carbonate (Tums) 500 Mg (200 Mg Elemental) PO 200 mg Q6H PRN Administration Indigestion Diphenhydramine HCl 12.5 mg 0
[2023-01-08] MEDS: POTASSIUM CHLORIDE 20 MEQ TABLET 40 MEQ PO (15:22)
[2023-01-08] MEDS: ACETAMINOPHEN 325 MG TABLET 650 MG PO (20:46)
[2023-01-08] MEDS: ZOLPIDEM TARTRATE (*CRX) 5 MG TABLET 10 MG PO (22:27)
[2023-01-09] MEDS: SODIUM CHLORIDE 0.9% IV 1,000 ML 100 ML IV CONT (05:08)
[2023-01-09] MEDS: HYDROcodone/acetaminophen (*CRX) 5-325 MG TABLET 1 TAB PO ×2 (05:47→12:06)
[2023-01-09 05:54] VITALS: BP 138/82; PULSE 85; RESP 16; TEMP 37.2; O2SAT 100
[2023-01-09 06:09] LABS: Basophils Percent Auto 0.4 % (0.2-1.2); Eosinophils Absolute Auto 0.1 K/mm3 (0-0.3); Immature Granulocyte Absolute 0.07 K/mm3 (0.00-0.031); Immature Granulocyte Percent A 0.8 % (0-0.5); Lymphocytes Absolute Auto 0.77 K/mm3 (0.9-3.2); Lymphocytes Percent Auto 9.2 % (18.3-44.2); Mean Corpuscular HGB Conc 32.1 g/dl (32-36); Mean Corpuscular Hemoglobin 29.4 pg (26-34); Mean Corpuscular Volume 91.5 fl (80-100); Monocytes Percent Auto 11.8 % (2.6-8.5); Neutrophils Absolute Auto 6.5 K/mm3 (1.3-6.7); Neutrophils Percent Auto 76.8 % (45.5-73.1); Platelet Count Result 143 k/mm3 (150-375); Red Blood Count 3.06 M/mm3 (4.2-5.4); White Blood Count 8.4 K/mm3 (4.5-10.0)
[2023-01-09 06:23] LABS: Alanine Aminotransferase 62 U/L (6-35); Albumin Level 3.4 g/dL (3.5-5.1); Alkaline Phosphatase 166 U/L (38-126); Anion Gap 9 mmol/L (8-16); Aspartate Amino Transferase 71 U/L (14-36); Bilirubin,Total 0.7 mg/dL (0.2-1.3); Blood Urea Nitrogen 7 mg/dL (7-17); Calcium 7.9 mg/dL (8.4-10.2); Carbon Dioxide 18 mmol/L (22-30); Chloride 109 mmol/L (98-107); Estimated CRCL calculation 62 ml/min; Estimated Glomerular Filt Rate > 60; Glucose 89 mg/dL (65-110); Magnesium 2.3 mg/dL (1.6-2.3); Potassium 3.2 mmol/L (3.4-5.0); Sodium 136 mmol/L (137-145)
[2023-01-09] MEDS: ESTROGENS, CONJUGATED 0.625 MG TABLET PO (09:53)
[2023-01-09] MEDS: POTASSIUM CHLORIDE 20 MEQ TABLET 40 MEQ PO (09:53)
[2023-01-09] MEDS: LEFLUNOMIDE 20 MG TABLET PO (09:53)
[2023-01-09] MEDS: VERAPAMIL HCL 180 MG TABLET ER PO (09:53)
[2023-01-09] MEDS: VENLAFAXINE HCL XR 75 MG CAP.ER.24H PO (09:54)
[2023-01-09] MEDS: ENOXAPARIN 40 MG/0.4 ML SYRINGE SUB-Q (09:54)
[2023-01-09] MEDS: ROSUVASTATIN 10 MG TABLET PO (09:54)
[2023-01-09] MEDS: TOPIRAMATE 100 MG TABLET PO ×2 (09:54→20:01)
[2023-01-09] MEDS: PANTOPRAZOLE 40 MG TABLET PO (09:54)
[2023-01-09] MEDS: CEFEPIME 2 GM/NS 50 ML 2 GM/50 ML BAG IVPB ×2 (11:22→20:01)
[2023-01-09 14:00] VITALS: BP 123/78; PULSE 92; RESP 16; TEMP 37; O2SAT 100
--- NOTE | 2023-01-09 14:51 | WPDUROPN2 ---
Progress Note: A&P Assessment and Plan (1) Kidney stones: Code(s): N20.0 - Calculus of kidney Status: Acute Assessment and Plan: Not obstructive on REINALDO. (2) Febrile: Code(s): R50.9 - Fever, unspecified Status: Acute Assessment and Plan: Likely from a non urologic source. WBC is normal, creatinine is normal. REINALOD shows no obstruction. Stent is out, urine culture repeat on 01/05/23 was negative. We suggest other sources of infection be explored. No further urologic evaluation noted. Subjective Subjective Date/Time Seen: 01/09/23 14:51 The patient is s/p Cystoscopy left stent removal on 01/05/23. She continues to run a fever and have mild left flank pain that radiates to the LLQ. She states the bladder spasms, dysuria and hematuria have resolved. She had a repeat culture on 01/05/23 which was negative for UTI. WBC is 8.4, creatinine is 0.80. REINALDO negative Post Op day: 4 Review of Systems Cardiovascular: Cardiovascular: Denies chest pain Respiratory: Respiratory: Reports no additional respiratory complaints Gastrointestinal: Gastrointestinal: Reports abdominal pain, Denies nausea and Denies vomiting Genitourinary: Genitourinary: Denies dysuria, Denies pelvic pain, Reports flank pain, Denies urinary incontinence, Denies urinary hesitancy and Denies urinary urgency Exam Resp: Effort & Inspection: normal respiratory effort Cardio: Rate: regular rate : General: Yes no CVA tenderness Extrem: Right lower extremity: no edema Left lower extremity: no edema Objective Data Vital Signs Vital Signs: Vital Signs - 24 hr 01/08/23 20:46 01/08/23 20:48 01/09/23 05:54 Temperature 100.4 F H 100.4 F H 99.0 F Pulse Rate 82 85 Respiratory Rate 16 16 Blood Pressure 120/76 138/82 Pulse Oximetry 100 100 Oxygen Delivery 01/09/23 09:45 01/09/23 14:00 Temperature 98.6 F Pulse Rate 92 Respiratory Rate 16 Blood Pressure 123/78 Pulse Oximetry 100 Oxygen Delivery Room Air Intake/Output Intake/Output: Intake & Output 01/06/23 01/07/23 01/08/23 01/09/23 23:59 23:59 23:59 23:59 Intake Total 2049 3700 3900 1780 Balance 2050 3700 3900 1780 Meds/Results Medications: Active Medications Generic Name Dose Route Start Last Admin Trade Name Freq PRN Reason Stop Dose Admin Acetaminophen 650 mg 01/04/23 17:58 01/08/23 20:46 Acetaminophen 325 Mg Tablet PO 650 mg Q6H PRN Administration Mild Pain (1-3) or Fever Hydrocodone Bitart/Acetaminophen 1 tab 01/04/23 11:33 01/09/23 12:06 Hydrocodone/Acetaminophen (*Crx) 5-325 Mg Tablet PO 1 tab Q4H PRN Administration Pain Rated 4-6 Calcium Carbonate 200 mg 01/05/23 16:56 01/06/23 08:33 Calcium Carbonate (Tums) 500 Mg (200 Mg Elemental) PO 200 mg Q6H PRN Administration Indigestion Diphenhydramine HCl 12.5 mg 01/03/23 00:14 01/03/23 00:53 Diphenhydramine Hcl Inj 50 Mg/Ml Vial IV PUSH 12.5 mg Q4H PRN Administration Itching Enoxaparin Sodium 40 mg 01/06/23 09:00 01/09/23 09:54 Enoxaparin 40 Mg/0.4 Ml Syringe SUB-Q 40 mg DAILY JAIME Administration Estrogens Conjugated 0.625 mg 01/02/23 09:00 01/09/23 09:53 Estrogens, Conjugated 0.625 Mg Tablet PO 0.625 mg DAILY JAIME Administration Fentanyl Citrate 25 mcg 01/03/23 09:23 01/03/23 09:31 Fentanyl Citrate Inj (*Crx) 100 Mcg/2 Ml Vial IV PUSH 25 mcg Q2M PRN Administration Pain Fentanyl Citrate 25 mcg 01/03/23 09:24 01/03/23 11:32 Fentanyl Citrate Inj (*Crx) 100 Mcg/2 Ml Vial IV PUSH 25 mcg Q2M PRN Administration Pain Hydromorphone HCl 0.2 mg 01/05/23 10:29 Hydromorphone Hcl Inj (*Crx) 1 Mg/Ml Syr IV PUSH Q3H PRN Pain Rated 4-6 Hydromorphone HCl 0.5 mg 01/05/23 10:29 01/08/23 10:07 Hydromorphone Hcl Inj (*Crx) 1 Mg/Ml Syr IV PUSH 0.5 mg Q3H PRN Administration Pain Rated 7-10 Cefepime HCl 2 gm in 50 mls @ 100 mls/hr 01/05/23 09:00 05
--- NOTE | 2023-01-09 15:06 | PM.IMPN ---
Progress Note: A&P Assessment and Plan (1) Kidney stones: Code(s): N20.0 - Calculus of kidney Status: Acute Assessment and Plan: pt is sp Cystoscopy, left retrograde pyelogram, left ureteroscopy with stone extraction, holmium laser of renal calculi+ left ureteral stent plan in 11/2022 status post removal left ureteral stent Recheck ultrasound with no acute findings Further workup as an outpatient basis (2) Urinary tract infection: Code(s): N39.0 - Urinary tract infection, site not specified Status: Acute Assessment and Plan: Continue with Rocephin most likely an infected kidney stone. No septic post procedure Broadened the coverage with vancomycin and cefepime Continue to monitor follow culture which been negative to date Urine culture negative so far will stop vancomycin this point. (3) Migraines: Code(s): G43.909 - Migraine, unspecified, not intractable, without status migrainosus Status: Acute Assessment and Plan: Continue with Topamax Continue with verapamil Continue with Effexor (4) Hyperlipidemia: Code(s): E78.5 - Hyperlipidemia, unspecified Status: Acute Assessment and Plan: Continue with Crestor (5) Sepsis: Code(s): A41.9 - Sepsis, unspecified organism Status: Acute Assessment and Plan: with tachycardia fever panculture Recheck urine CT abdomen pelvis Broad-spectrum antibiotics with vancomycin and cefepime. Ceftriaxone Alternate Tylenol and Motrin Will stop vancomycin today Will continue cefepime. May switch to Levaquin at discharge for continued anti pseudomonal coverage Plan History of rheumatoid arthritis on leflunomide and upadacitinib Subjective Date/time seen: 01/09/23 15:06 Interval history: Feels much better this morning. The pain is still there but feels lot better. Fever is coming down. Review of Systems Review of Systems: All systems reviewed & are unremarkable except as noted in HPI and below Exam Narrative: GENERAL: The patient is well developed, well appearing HEENT: Nonicteric sclerae, PERRLA, EOMI. Oropharynx clear. Moist mucous membranes. Conjunctivae appear well perfused. CHEST: Chest wall is nontender. HEART: Regular rate and regular rhythm without murmur, rubs, or gallops LUNGS: Clear to auscultation bilaterally. no respiratory distress ABDOMEN: Soft, positive bowel sounds, lower quadrant tenderness, no organomegaly. Left flank tenderness SKIN: No rash, no excessive bruising, petechiae, or purpura. NEUROLOGIC: Cranial nerves II-XII intact, alert and oriented x 3, no gross motor deficits EXTREMITIES: no edema, cyanosis or clubbing Objective Data Vital Signs Vital Signs: Vital Signs - 24 hr 01/08/23 20:46 01/08/23 20:48 01/09/23 05:54 Temperature 100.4 F H 100.4 F H 99.0 F Pulse Rate 82 85 Respiratory Rate 16 16 Blood Pressure 120/76 138/82 Pulse Oximetry 100 100 Oxygen Delivery 01/09/23 09:45 01/09/23 14:00 Temperature 98.6 F Pulse Rate 92 Respiratory Rate 16 Blood Pressure 123/78 Pulse Oximetry 100 Oxygen Delivery Room Air Intake/Output Intake/Output: Intake & Output 01/06/23 01/07/23 01/08/23 01/09/23 23:59 23:59 23:59 23:59 Intake Total 2049 3700 3900 1780 Balance 2049 3700 3900 1780 Meds/Results Medications: Active Medications Generic Name Dose Route Start Last Admin Trade Name Freq PRN Reason Stop Dose Admin Acetaminophen 650 mg 01/04/23 17:58 01/08/23 20:46 Acetaminophen 325 Mg Tablet PO 650 mg Q6H PRN Administration Mild Pain (1-3) or Fever Hydrocodone Bitart/Acetaminophen 1 tab 01/04/23 11:33 01/09/23 12:06 Hydrocodone/Acetaminophen (*Crx) 5-325 Mg Tablet PO 1 tab Q4H PRN Administration Pain Rated 4-6 Calcium Carbonate 200 mg 01/05/23 16:56 01/06/23 08:33 Calcium Carbonate (Tums) 500 Mg (200 Mg Elemental) PO 200 mg Q6H PRN Administration Indigestion Diphenh
[2023-01-09 20:24] VITALS: BP 132/83; PULSE 90; RESP 17; TEMP 38.6; O2SAT 99
[2023-01-09] MEDS: ACETAMINOPHEN 325 MG TABLET 650 MG PO (20:57)
[2023-01-09] MEDS: ZOLPIDEM TARTRATE (*CRX) 5 MG TABLET 10 MG PO (22:00)
[2023-01-10] MEDS: CEFEPIME 2 GM/NS 50 ML 2 GM/50 ML BAG IVPB ×2 (04:00→13:04)
[2023-01-10 04:09] LABS: Vancomycin Trough 10.8 ug/mL (10.0-20.0)
[2023-01-10 06:19] LABS: Basophils Absolute Auto 0.1 K/mm3 (0.0-0.1); Basophils Percent Auto 0.8 % (0.2-1.2); Eosinophils Absolute Auto 0.1 K/mm3 (0-0.3); Eosinophils Percent Auto 0.9 % (0-4.4); Hematocrit 31.6 % (37.0-47.0); Hemoglobin 10.2 g/dL (12.0-15.0); Immature Granulocyte Absolute 0.13 K/mm3 (0.00-0.031); Immature Granulocyte Percent A 1.6 % (0-0.5); Lymphocytes Absolute Auto 0.92 K/mm3 (0.9-3.2); Lymphocytes Percent Auto 11.6 % (18.3-44.2); Mean Corpuscular HGB Conc 32.3 g/dl (32-36); Mean Corpuscular Hemoglobin 29.7 pg (26-34); Mean Corpuscular Volume 91.9 fl (80-100); Mean Platelet Volume 8.9 fl (7.4-10.4); Monocytes Absolute Auto 0.9 K/mm3 (0.1-0.6); Monocytes Percent Auto 11.8 % (2.6-8.5); Neutrophils Absolute Auto 5.8 K/mm3 (1.3-6.7); Neutrophils Percent Auto 73.3 % (45.5-73.1); Platelet Count Result 188 k/mm3 (150-375); Red Blood Count 3.44 M/mm3 (4.2-5.4); White Blood Count 7.9 K/mm3 (4.5-10.0)
[2023-01-10 06:40] LABS: Alanine Aminotransferase 62 U/L (6-35); Albumin Level 3.8 g/dL (3.5-5.1); Alkaline Phosphatase 188 U/L (38-126); Anion Gap 12 mmol/L (8-16); Aspartate Amino Transferase 46 U/L (14-36); Bilirubin,Total 0.8 mg/dL (0.2-1.3); Blood Urea Nitrogen 9 mg/dL (7-17); Calcium 8.4 mg/dL (8.4-10.2); Carbon Dioxide 18 mmol/L (22-30); Chloride 106 mmol/L (98-107); Estimated CRCL calculation 62 ml/min; Estimated Glomerular Filt Rate > 60; Glucose 90 mg/dL (65-110); Magnesium 2.5 mg/dL (1.6-2.3); Potassium 3.4 mmol/L (3.4-5.0); Sodium 136 mmol/L (137-145)
--- NOTE | 2023-01-10 06:58 | PC.NURSE ---
Paper documentation exists on this patient due to [facility] downtime on 01/09/23 2200 from to 01/10/23 0600 .
[2023-01-10 07:42] LABS: Burr Cells 1+ (NORMAL); Platelet Estimate Adequate (Adequate); Poikilocytosis 1+ (NORMAL); Schistocytes None Seen (NORMAL)
[2023-01-10] MEDS: TOPIRAMATE 100 MG TABLET PO (09:07)
[2023-01-10] MEDS: VENLAFAXINE HCL XR 75 MG CAP.ER.24H PO (09:07)
[2023-01-10] MEDS: VERAPAMIL HCL 180 MG TABLET ER PO (09:07)
[2023-01-10] MEDS: LEFLUNOMIDE 20 MG TABLET PO (09:07)
[2023-01-10] MEDS: ROSUVASTATIN 10 MG TABLET PO (09:07)
[2023-01-10] MEDS: ESTROGENS, CONJUGATED 0.625 MG TABLET PO (09:07)
[2023-01-10] MEDS: ENOXAPARIN 40 MG/0.4 ML SYRINGE SUB-Q (09:07)
[2023-01-10] MEDS: PANTOPRAZOLE 40 MG TABLET PO (09:07)
--- NOTE | 2023-01-10 12:53 | WPDUROPN2 ---
Progress Note: A&P Assessment and Plan (1) Sepsis: Code(s): A41.9 - Sepsis, unspecified organism Status: Acute Assessment and Plan: Cultures however have been negative to date. She is actually feeling better. From a urologic standpoint can be discharged when medically stable. Subjective Subjective Date/Time Seen: 01/10/23 12:53 Principal diagnosis: Possible pyelonephrosis fever of unknown origin Interval history: actually feeling better today. Review of Systems Review of Systems: All systems reviewed & are unremarkable except as noted in HPI and below Exam Const: General: cooperative and comfortable Resp: Effort & Inspection: normal respiratory effort Cardio: Rate: regular rate Rhythm: regular rhythm Objective Data Vital Signs Vital Signs: Vital Signs - 24 hr 01/09/23 14:00 01/09/23 20:24 01/09/23 20:00 Temperature 37.0 C 38.6 C H Pulse Rate 92 90 Respiratory Rate 16 17 Blood Pressure 123/78 132/83 Pulse Oximetry 100 99 Oxygen Delivery Room Air 01/10/23 09:00 Temperature Pulse Rate Respiratory Rate Blood Pressure Pulse Oximetry Oxygen Delivery Room Air Intake/Output Intake/Output: Intake & Output 01/07/23 01/08/23 01/09/23 01/10/23 23:59 23:59 23:59 23:59 Intake Total 3700 3900 2950 290 Balance 3700 3900 2950 290 Meds/Results Medications: Active Medications Generic Name Dose Route Start Last Admin Trade Name Freq PRN Reason Stop Dose Admin Acetaminophen 650 mg 01/04/23 17:58 01/09/23 20:57 Acetaminophen 325 Mg Tablet PO 650 mg Q6H PRN Administration Mild Pain (1-3) or Fever Hydrocodone Bitart/Acetaminophen 1 tab 01/04/23 11:33 01/09/23 12:06 Hydrocodone/Acetaminophen (*Crx) 5-325 Mg Tablet PO 1 tab Q4H PRN Administration Pain Rated 4-6 Calcium Carbonate 200 mg 01/05/23 16:56 01/06/23 08:33 Calcium Carbonate (Tums) 500 Mg (200 Mg Elemental) PO 200 mg Q6H PRN Administration Indigestion Diphenhydramine HCl 12.5 mg 01/03/23 00:14 01/03/23 00:53 Diphenhydramine Hcl Inj 50 Mg/Ml Vial IV PUSH 12.5 mg Q4H PRN Administration Itching Enoxaparin Sodium 40 mg 01/06/23 09:00 01/10/23 09:07 Enoxaparin 40 Mg/0.4 Ml Syringe SUB-Q 40 mg DAILY JAIME Administration Estrogens Conjugated 0.625 mg 01/02/23 09:00 01/10/23 09:07 Estrogens, Conjugated 0.625 Mg Tablet PO 0.625 mg DAILY JAIME Administration Fentanyl Citrate 25 mcg 01/03/23 09:23 01/03/23 09:31 Fentanyl Citrate Inj (*Crx) 100 Mcg/2 Ml Vial IV PUSH 25 mcg Q2M PRN Administration Pain Fentanyl Citrate 25 mcg 01/03/23 09:24 01/03/23 11:32 Fentanyl Citrate Inj (*Crx) 100 Mcg/2 Ml Vial IV PUSH 25 mcg Q2M PRN Administration Pain Hydromorphone HCl 0.2 mg 01/05/23 10:29 Hydromorphone Hcl Inj (*Crx) 1 Mg/Ml Syr IV PUSH Q3H PRN Pain Rated 4-6 Hydromorphone HCl 0.5 mg 01/05/23 10:29 01/08/23 10:07 Hydromorphone Hcl Inj (*Crx) 1 Mg/Ml Syr IV PUSH 0.5 mg Q3H PRN Administration Pain Rated 7-10 Cefepime HCl 2 gm in 50 mls @ 100 mls/hr 01/09/23 20:00 01/10/23 04:30 Maxipime 2 Gm/Ns 50 Ml IVPB 01/10/23 23:59 Infused Q8H JAIME Infusion Ibuprofen 400 mg 01/05/23 10:18 01/05/23 12:43 Ibuprofen 400 Mg Tablet PO 400 mg Q6H PRN Administration Pain Rated 1-3 Leflunomide 20 mg 01/02/23 09:00 01/10/23 09:07 Leflunomide 20 Mg Tablet PO 20 mg DAILY JAIME Administration Upadacitinib [Rinvoq 15 mg 01/02/23 09:00 ] 15 Mg Tablet PO 02/01/23 08:59 Extended Release 24 DAILY JAIME Hr Ondansetron HCl 4 mg 01/03/23 07:43 01/05/23 12:44 Ondansetron Inj 4 Mg/2 Ml Vial IV PUSH 4 mg TID PRN Administration Nausea And Vomiting Ondansetron HCl 4 mg 01/03/23 09:24 Ondansetron Inj 4 Mg/2 Ml Vial IV PUSH ONCE PRN Nausea Pantoprazole Sodium 40 mg 01/06/23 09:00 01/10/23 09:07 Pantoprazole 40 Mg Tablet PO 4
--- NOTE | 2023-01-10 13:22 | PM.DS ---
DS: Admitting Diagnosis Discharge Date 01/10/2023 Admitting Diagnosis Sepsis Renal calculus DS: Discharge Diagnosis Discharge Diagnosis (1) Sepsis: Code(s): A41.9 - Sepsis, unspecified organism Status: Acute (2) Kidney stones: Code(s): N20.0 - Calculus of kidney Status: Acute (3) Hyperlipidemia: Code(s): E78.5 - Hyperlipidemia, unspecified Status: Acute DS: Summary Hospital Course Hospital Course: Patient was admitted with renal calculus. She was started on IV cefepime. Urology was consulted. Pt is sp Cystoscopy, left retrograde pyelogram, left ureteroscopy with stone extraction, holmium laser of renal calculi+ left ureteral stent. status post removal left ureteral stent. Recheck ultrasound with no acute findings. Further workup as an outpatient basis For UTI she was initially started on IV cefepime and vancomycin. Cultures have been negative so far. Patient has received 7 days of IV cefepime. All other chronic comorbidities are stable. Continue home medications. Patient has been febrile for the last couple of days. Per Urology this is not related to her renal stones. Patient's white count is normal. She has no respiratory issues. She is saturating on room air. Vitals are stable. This looks most likely viral disease. As mentioned above cultures have been negative. We will check her for COVID and flu but even if those are positive she is not a candidate for any treatment since she is on room air and out of the treatment window for flu. Patient was advised that she most likely has a viral disease and was advised to continue symptomatic treatment at home. She is being discharged home in stable condition Time Spent with Patient Time attestation: Total time spent providing and/or coordinating discharge services: Exam Const: General: cooperative and comfortable Resp: Effort & Inspection: normal respiratory effort Cardio: Rate: regular rate Rhythm: regular rhythm DS: Data Data Completed and Pending Completed studies during hospitalization: Pending at discharge 01/03/23 10:32 Surgical [PTH] Routine Labs on day of discharge: Labs from last 24 hours 01/10/23 01/10/23 01/09/23 13:07 05:45 21:34 WBC 7.9 RBC 3.44 L Hgb 10.2 L Hct 31.6 L MCV 91.9 MCH 29.7 MCHC 32.3 RDW 15.0 H Plt Count 188 MPV 8.9 Immature Gran % (Auto) 1.6 H Neut % (Auto) 73.3 H Lymph % (Auto) 11.6 L Coos % (Auto) 11.8 H Eos % (Auto) 0.9 Baso % (Auto) 0.8 Lymph # (Auto) 0.92 Coos # (Auto) 0.9 H Eos # (Auto) 0.1 Baso # (Auto) 0.1 Abs Immat Gran (auto) 0.13 H Absolute Neuts (auto) 5.8 Absolute Nucleated RBC 0.0 Nucleated RBC % 0.0 Platelet Estimate Adequate Poikilocytosis 1+ Amanda Cells 1+ Schistocytes None seen Sodium 136 L Potassium 3.4 Chloride 106 Carbon Dioxide 18 L Anion Gap 12 BUN 9 Creatinine 0.80 Estim Creat Clear Calc 62 Estimated GFR > 60 Glucose 90 Calcium 8.4 Magnesium 2.5 H Total Bilirubin 0.8 AST 46 H ALT 62 H Alkaline Phosphatase 188 H Total Protein 7.0 Albumin 3.8 Vancomycin Trough 10.8 Influenza A (RT-PCR) Pending Influenza B (RT-PCR) Pending RSV (RT-PCR) Pending SARS-CoV-2 RNA (RT-PCR) Pending Preliminary micro results at discharge 01/05/23 09:46 Blood Culture - Preliminary Blood 01/05/23 09:46 Blood Culture - Preliminary Blood Discharge Plan Discharge Consulting providers: Kiel Naranjo; Vlad Scanlon Discharging Clinician: Lázaro Ontiveros Anticipated Discharge Date/Time: 01/10/23 15:00 Patient Disposition: Home, Self-Care Activity: no preference Diet: heart healthy Patient Instructions: Antibiotic Form Stand Alone Forms: General Discharge Information Follow-up/Referrals: Vlad Scanlon MD [Physician] - PHYSICIAN NOT ON STAFF,NONSTA
[2023-01-10 14:03] LABS: Influenza A QL RT-PCR Negative (Negative); Influenza B QL RT-PCR Negative (Negative); RSV RNA, RT-PCR Negative (Negative); SARS-CoV-2 RNA PCR Negative (Negative)
== END 2023-01-10 16:00 | disposition home or self-care (01) | DRG 854 ==
LOC: ANHED 19:35 → ANH3MED 20:31
PROVIDERS: Family Medicine; Internal Medicine; Nurse Practitioner; Urology; Admitting Provider Hospitalist; Emergency Provider Emergency Medicine; Visit Provider Hospitalist
PROC: 0T778DZ Dilation of Left Ureter with Intraluminal Device, Via Natural or Artificial Opening Endoscopic (ICD-10-PCS; CPT 52352; principal; 2023-01-03 10:00)
DX: A41.9 Sepsis, unspecified organism (principal); N13.6 Pyonephrosis; B34.9 Viral infection, unspecified; E78.5 Hyperlipidemia, unspecified; G43.909 Migraine, unspecified, not intractable, without status migrainosus; Z20.822 Contact with and (suspected) exposure to COVID-19; Z90.710 Acquired absence of both cervix and uterus; Z90.49 Acquired absence of other specified parts of digestive tract
CPT/HCPCS: 36415; 71046; 74018; 74176; 74420; 76775; 80048; 80053; 80202; 81001; 82365; 83605; 83735; 84443; 85025; 87040; 87086; 87088; 87637; 88300; 93970; 96361; 96365; 96375; 96376; 99285; A9270; C1769; C2617; G0378; J0330; J0692; J0696; J1100; J1170; J1200; J1650; J2250; J2370; J2405; J2704; J3010; J3370; J3480; J7030; J7040; J7120

== ENCOUNTER 2023-05-03 11:47 | Outpatient (CLI) | payer BC, SELFPAY ==
--- NOTE | ~2023-05-03 | XR_ITS ---
EXAMINATION: XR abdomen/kub 1V INDICATION: History of kidney stones, left lithotripsy in February TECHNIQUE: Supine views of the abdomen were obtained on 2 radiographs. COMPARISON: 01/04/2023 FINDINGS: The left internal ureteral stent has been removed. There are at least four stones of the le ft kidney which measure up to 4 mm. A 6 mm stone projects in the expected location of the right proxi mal ureter between the right L2 and L3 transverse processes. There are at least seven stones of the r ight kidney which measure up to 11 mm in the upper pole. The bowel gas pattern is normal. There is a phlebolith of the right pelvis. IMPRESSION: 1. Possible 6 mm stone of the proximal right ureter. Correlate for right flank pain. 2. Bilateral nephrolithiasis. Reviewed, dictated and finalized at location [facility].
== END 2023-05-03 11:48 | disposition home or self-care (01) ==
PROVIDERS: Visit Provider Urology
DX: N20.2 Calculus of kidney with calculus of ureter (principal)
CPT/HCPCS: 74018

== ENCOUNTER 2023-06-25 11:00 | Outpatient (CLI) | payer BC, SELFPAY ==
--- NOTE | ~2023-06-25 | XR_ITS ---
Supine and upright views of the abdomen Clinical history: Renal stone COMPARISON: 05/03/2023 Findings: Bowel gas pattern is nonspecific. No evidence for obstruction or free air. Bilateral nephro lithiasis is similar to prior exam, with largest stone is at the right upper pole. Osseous structures are intact. Impression: Bilateral nephrolithiasis, similar to prior exam, as detailed above. Reviewed, dictated and finalized at [facility]. Impression: Bilateral nephrolithiasis, similar to prior exam, as detailed above.
== END 2023-06-25 11:01 | disposition home or self-care (01) ==
PROVIDERS: Visit Provider Urology
DX: N20.0 Calculus of kidney (principal)
CPT/HCPCS: 74018

== ENCOUNTER 2023-09-07 11:18 | Outpatient (CLI) | payer BC, SELFPAY ==
--- NOTE | ~2023-09-07 | XR_ITS ---
EXAMINATION: XR abdomen/kub 1V DATE: 09/07/2023 11:39 INDICATION: Bilateral kidney stones. TECHNIQUE: A supine view of the abdomen on 2 radiographs was obtained. COMPARISON: Abdomen radiographs 06/25/2023, CT abdomen and pelvis 01/05/2023 FINDINGS: There are no dilated loops of bowel. There is a phlebolith in right pelvis. The kidneys are obscured by bowel. There are least 3 stones in right kidney and 5 stones in left kidney measuring up to 5 mm on the right. IMPRESSION: 1. Bilateral kidney stones. Reviewed, dictated and finalized at location E. K INSPECTOR IMPRESSION: 1. Bilateral kidney stones.
== END 2023-09-07 11:19 | disposition home or self-care (01) ==
PROVIDERS: Visit Provider Urology
DX: N20.0 Calculus of kidney (principal)
CPT/HCPCS: 74018

== ENCOUNTER 2024-02-12 09:15 | Outpatient (CLI) | payer BC, SELFPAY ==
--- NOTE | ~2024-02-12 | XR_ITS ---
XR abdomen/kub 1V Ordering provider: Duong Hernandez MD History: . FU ON KIDNEY STONE/NO CURRENT SYMPTOMS . Comparison: September 07, 2023 FINDINGS: BOWEL: Nonobstructive bowel gas pattern. ORGANOMEGALY: None. SIGNIFICANT PATHOLOGIC CALCIFICATIONS: Multiple calcific shadows are projected over the left kidney w ith the largest seen in the left kidney lower pole measuring 6 mm. The tiny calcifications projected over the left kidney upper pole and the right kidney may be in the fecal material. Faint calcificatio ns also seen in the left kidney midpole. The tiny calcification in the right side of the pelvis is un changed from previous examination most likely a small phlebolith. OTHER: No free air is seen under th e diaphragm. IMPRESSION: NO BOWEL OBSTRUCTION. multiple stones bilaterally with the largest seen in the left kidney lower pole. Reviewed, dictated and finalized at location A. IMPRESSION: NO BOWEL OBSTRUCTION. multiple stones bilaterally with the largest seen in the left kidney lower pole .
== END 2024-02-12 09:16 | disposition home or self-care (01) ==
PROVIDERS: Visit Provider Urology
DX: N20.0 Calculus of kidney (principal)
CPT/HCPCS: 74018

== ENCOUNTER 2024-05-29 10:08 | Outpatient (CLI) | payer BC, SELFPAY ==
--- NOTE | ~2024-05-29 | MM_ITS ---
EXAMINATION: MM screening rayna BI w ledy HISTORY: Screening TECHNIQUE: Craniocaudal and mediolateral oblique 3-D tomosynthesis images were obtained and synthetic 2-D images were generated. CAD analysis was submitted and interpreted. COMPARISON: Comparison to multiple prior studies sequentially, with oldest reviewed study dated 06/04. BREAST PARENCHYMAL COMPOSITION: Not Dense: The breasts are almost entirely fatty. FINDINGS: There is a new asymmetry centrally in the right breast on CC view, posterior third, not vis ualized on MLO view. The left breast is stable. IMPRESSION: 1. New right breast asymmetry. 2. Additional mammographic views and possible breast ultrasound are recommended. BI-RADS Category 0: Incomplete: Needs additional imaging evaluation. Reviewed, dictated and finalized at location B. IMPRESSION: 1. New right breast asymmetry. 2. Additional mammographic views and possible breast ultrasound are recommended . BI-RADS Category 0: Incomplete: Needs additional imaging evaluation.
== END 2024-05-29 10:09 | disposition home or self-care (01) ==
PROVIDERS: Visit Provider Obstetrics & Gynecology
DX: N64.89 Other specified disorders of breast (principal); Z12.31 Encounter for screening mammogram for malignant neoplasm of breast
CPT/HCPCS: 77063; 77067

== ENCOUNTER 2024-06-10 13:05 | Outpatient (CLI) | payer BC, SELFPAY ==
--- NOTE | ~2024-06-10 | MMUS_ITS ---
EXAMINATION: MM diagnostic rayna RT w ledy, US breast RT limited HISTORY: Follow-up right breast mass TECHNIQUE: Additional 3-D tomosynthesis images of the right breast were performed and synthetic 2-D i mages were generated. CAD analysis was submitted and interpreted. High resolution Limited right breas t ultrasound was performed. COMPARISON: Comparison to multiple prior studies sequentially, with oldest reviewed study dated 07/04. BREAST PARENCHYMAL COMPOSITION: Not Dense: The breasts are almost entirely fatty. FINDINGS: MAMMOGRAPHIC FINDINGS: There is a small radiolucent nodule in the upper inner quadrant of the right breast posteriorly. ULTRASOUND: Limited right breast ultrasound: Normal heterogeneous echotexture without focal solid or cystic mass. IMPRESSION: 1. Probable benign right breast mass in the upper inner quadrant of the right breast posteriorly with out sonographic correlate. 2. Recommend 6 month follow-up diagnostic right mammogram BI-RADS category 3, probably benign findings. Reviewed, dictated and finalized at location B. IMPRESSION: 1. Probable benign right breast mass in the upper inner quadrant of the right b reast posteriorly without sonographic correlate. 2. Recommend 6 month follow-up diagnostic right mammogram BI-RADS category 3, probably benign findings.
== END 2024-06-10 13:06 | disposition home or self-care (01) ==
PROVIDERS: Visit Provider Obstetrics & Gynecology
DX: N64.89 Other specified disorders of breast (principal)
CPT/HCPCS: 76642; 77061; 77065; G0279

== ENCOUNTER 2025-03-29 10:08 | Emergency (ER) | payer BC, SELFPAY ==
--- NOTE | ~2025-03-29 | CT_ITS ---
CLINICAL INDICATION: Abnormal imaging COMPARISON: None. TECHNIQUE: Multiple contiguous axial images of the chest was performed following the administration o f intravenous contrast. This CT examination was performed utilizing dose reduction techniques. DLP: 150 mGy-cm FINDINGS/OBSERVATIONS: LUNG: Redemonstration of the abnormality within the right lung base, likely causing patient's flank pain. Calcified granuloma within the right middle lobe. No suspicious nodules are identified within the bilateral lung villalobos. This may be infectious in origin, given the surrounding groundglass opacification, despite the multil obulated appearance, for which short-term follow-up is needed. HEART: The heart is of normal size, without pericardial effusion. MEDIASTINUM: Calcified lymph nodes within the mediastinum suggesting prior granulomatous disease. No pathologically enlarged or morphologically suspicious lymph nodes are identified within the medias tinum, bilateral axilla, within the soft tissues of the anterior chest wall. SOFT TISSUES OF THE CHEST: Unremarkable. BONES OF THE CHEST: No acute fracture. No lytic or blastic lesions are identified. IMPRESSION: Redemonstration of the abnormality within the right lung base, likely causing patient's right flank p ain. Given the surrounding groundglass opacification, the lack of additional abnormalities within the bila teral lung villalobos, as well as the lack of mediastinal lymphadenopathy, would favor infection over a m alignancy for which short-term follow-up is needed (perhaps following a course of antibiotics). Reviewed, dictated and finalized at location A. IMPRESSION: Redemonstration of the abnormality within the right lung base, likely causing p atient's right flank pain. Given the surrounding groundglass opacification, the lack of additional abnorma lities within the bilateral lung villalobos, as well as the lack of mediastinal lym phadenopathy, would favor infection over a malignancy for which short-term foll ow-up is needed (perhaps following a course of antibiotics).
--- NOTE | ~2025-03-29 | CT_ITS ---
CLINICAL INDICATION: Right flank pain COMPARISON: 01/05/2023. Reference is also made to multiple plain film evaluations of the abdomen performed most recently on 02/12/2024 and datin g back to 05/03/2023. . TECHNIQUE: Multiple contiguous axial images of the abdomen and pelvis were performed without the admi nistration of intravenous contrast The dose-length product (DLP) was 182.96 mGy-cm. Automated exposure control and iterative reconstruction technique were employed. FINDINGS/OBSERVATIONS: Visualized lower thorax: Nodular soft tissue attenuation within the right lung base, an interval change from previous examinat ion dated 01/05/2023. This focus measures 30 x 40 x 35 mm (anterior to posterior x medial to lateral x cranial to caudal di mension). No additional abnormalities are detected within the bilateral lung bases. The heart is of normal size, without pericardial effusion. Small hiatal hernia is present. Liver: The liver demonstrates homogeneous attenuation and is not enlarged. Gallbladder and biliary system: The gallbladder is nonvisualized, presumably surgically absent. Pancreas: Limited evaluation of the pancreas secondary to the lack of intravenous contrast. Spleen: The spleen demonstrates homogeneous attenuation and is not enlarged. Kidneys: Innumerable bilateral nonobstructing renal calculi. The largest on the right measures 8 mm and is located within the upper pole. The largest on the left measures 8 mm and is located within the lower pole. Interval removal of the left-sided double-J stent, seen on the 2022 examination. No hydronephrosis or hydroureter is appreciated. Punctate calcification within the right hemipelvis, posterior and medial to the path of the right ure ter. Adrenal glands: Unremarkable. Gastrointestinal tract: Colonic diverticulosis without surrounding inflammatory change. Air-fluid level within the cecum and ascending colon without mural thickening or surrounding inflamma tory change. Appendix: The air-filled appendix is of normal caliber (coronal series, images 53 through 63) Vasculature: Unremarkable. Lymph nodes: No pathologically enlarged or morphologically suspicious lymph nodes within the retroperitoneum or at the root of the mesentery. Pelvic structures: The bladder is decompressed, limiting its evaluation. Surrounding inflammatory change is present. The uterus is either surgically absent or markedly atrophic. Body wall and musculoskeletal: No significant degenerative disease within the lower thoracic or lumbosacral spine. IMPRESSION: Innumerable nonobstructing bilateral renal calculi, as detailed above. No obstructive uropathy. Findings within the right lung base for which dedicated chest CT is recommended in order to determine appropriate follow-up. Perivesicular inflammation for which cystitis is suspected. Reviewed, dictated and finalized at location A.
--- OUTSIDE RECORDS SUMMARY | 2025-03-29 10:11 | XMS_ITS | Clinical Summary ---
Author Organization [facility] [address] Address [address] [place] [id number] Care Team Providers Care Commercial Escrow Assistant Name Role Phone Kiel Naranjo MD Primary Care Provider [phone] Elder Damon MD Unavailable [phone] Jeffery Pollock MD Unavailable Mic Hernandez MD Unavailable Duong Hernandez MD Unavailable [phone] Amando Fatima MD Unavailable [phone] Allergies Active Allergy Reactions Criticality Noted Date Comments Amantadine Hcl Hives Medium 08/07/2024 Reaction: HIVES Bee Venom Protein (Honey Bee) Anaphylaxis High 03/01/2023 Codeine Other (See comments),Chest tightness,Nausea And Vomiting,Nausea only,Palpitations,Ph otosensitivity High 03/11/2020 Reaction: chest tightness/pressur e Reaction: OTHER REACTION, Iodinated Contrast Media Hives,Rash,Urticaria Medium 1 09/03/2019 Reaction: HIVES Morphine Nausea And Vomiting,Nausea only,Shortness of breath High 03/11/2020 Prednisone Swollen tongue,Urticaria High 07/12/2022 Prochlorperazine Unknown 08/07/2024 Shellfish Hives,Rash Medium 03/11/2020 Venom-Honey Bee Anaphylaxis High 03/11/2020 Medications topiramate (TOPAMAX) 100 mg tablet Take 1 tablet (100 mg total) by mouth 2 (two) times a day 03/28/2017 Active traMADol (ULTRAM) 50 mg tablet Take 1 tablet (50 mg total) by mouth every 6 (six) hours as needed 03/28/2017 Active zolpidem (AMBIEN) 10 mg tablet Take 1 tablet (10 mg total) by mouth nightly Active rosuvastatin (CRESTOR) 10 mg tablet Take 1 tablet (10 mg total) by mouth nightly Active estrogens, conjugated, (PREMARIN) 0.625 mg tablet Take 1 tablet (0.625 mg total) by mouth daily Active venlafaxine XR (EFFEXOR-XR) 75 mg 24 hr capsule Take 1 capsule (75 mg total) by mouth daily Active verapamil SR (CALAN SR) 180 mg CR tablet Take 1 tablet (180 mg total) by mouth nightly Active abatacept (ORENCIA) 125 mg/mL injectionIndica tions:Rheumatoi d Arthritis Inject 1 mL (125 mg total) under the skin once a week Sundays Active ezetimibe (ZETIA) 10 mg tablet Take 1 tablet (10 mg total) by mouth nightly Active hydrOXYzine (ATARAX) 25 mg tablet Take 1 tablet (25 mg total) by mouth nightly Active ARIPiprazole (ABILIFY) 5 mg tablet Take 1 tablet (5 mg total) by mouth daily 06/19/2024 Active fenofibrate (TRIGLIDE) 160 mg tablet Take 1 tablet (160 mg total) by mouth daily 08/04/2024 Active Wegovy 1.7 mg/0.75 mL auto-injector INJECT 1 PEN UNDER THE SKIN ONCE WEEKLY 11/20/2024 Active Wegovy 1 mg/0.5 mL auto-injector INJECT ONCE A WEEK 10/22/2024 Active Active Problems Problem Noted Date Diagnosed Date Renal stone 07/10/2023 Primary insomnia 03/02/2023 Elevated liver enzymes 03/02/2023 RUQ pain 03/01/2023 Elevated LFTs 03/01/2023 H/O total hysterectomy 07/12/2022 Migraines 07/12/2022 Rheumatoid arthritis 07/12/2022 Dyspareunia in female 06/30/2020 Atrophic vaginitis 06/30/2020 Fibrocystic disease of breast 06/30/2020 Menopausal symptom 06/30/2020 Immunizations Immunization Administration Dates Next Due Influenza, Quadrivalent, Spl it, Preservative Free, Intramuscular 07/07/2022,06/24/2021 Influenza, Trivalent, IM (MDV) 06/03/2020,2018 Tdap 10/15/2023 Surgical History Surgery Date Site/Laterality Comments EPIDURAL INJECTION LUMBOSACRAL 03/05/2013 N/A KIDNEY STONE SURGERY CHOLECYSTECTOMY APPENDECTOMY SECTION HYSTERECTOMY NEPHROURETERAL STENT PLACEMENT NEW ACCESS RIGHT 023 Right URETERAL STENT PLACEMENT VIA EXISTING TRACT RIGHT 07/11 Right BREAST BIOPSY 08/13/2024 Right Medical History Medical History Date Comments Kidney calculi Migraines Cholelithiasis Headache Depression RA (rheumatoid arthritis) (HCC) Arthritis Family History Medical History Relation Name Comments small cell Father small cell brain Mother Breast cancer Mother's Sister brain/bone Paternal Grandfather Testicular cancer Son Relation Name Status Comments Father Mother Mother's Sister Paternal Grandfather Son Social History Tobacco Use Types Packs/Day Years Used Date Smoking Tobacco: Former Smokeless Tobacco: Never Tobacco Cessation:Counseling Given: Not Answered Social Connection and Isolat ion Panel [NHANES] Answer Date Recorded In a typical week, how many times do you talk on the phone with family, friends, or neighbors? More than three times a week 03/02/2023 How often do you get togethe r with friends or relatives? More than three times a week 03/02/2023 How often do you attend chur or jain services? More than 4 times per year 03/02/2023 Do you belong to any clubs o r organizations such as latter-day groups, unions, fraternal or athletic groups, or school groups? Yes 03/02/2023 How often do you attend meet ings of the clubs or organizations you belong to? More than 4 times per year 03/02/2023 Are you , , di vorced, , never , or living with a partner? 03/02/2023 AUDIT-C Answer Date Recorded Q1: How often do you have a drink containing alcohol? Never 07/10/2023 Q2: How many drinks containi ng alcohol do you have on a typical day when you are drinking? Patient does not drink Q3: How often do you have si x or more drinks on one occasion? Never 07/10/2023 Overall Financial Resource Strain (CARDIA) Answe r Date Recorded How hard is it for you to pa y for the very basics like food, housing, medical care, and heating? Not hard at all 03/02/2023 Hunger Vital Sign Answer Date Recorded Within the past 12 months, y ou worried that your food would run out before you got the money to buy more. Never true 03/02/20 23 Within the past 12 months, t he food you bought just didn't last and you didn't have money to get more. Never true 03/02/2023 PRAPARE - Transportation Answer Date Re corded In the past 12 months, has l ack of transportation kept you from medical appointments or from getting medications? No 02/03 In the past 12 months, has l ack of transportation kept you from meetings, work, or from getting things needed for daily living? No 03/02/2023 Housing Stability Vital Sign Answer Pavan e Recorded In the last 12 months, was t here a time when you were not able to pay the mortgage or rent on time? No 03/02/2023 Number of Places Lived in the Last Year Not on f ile 03/02/2023 In the last 12 months, was t here a time when you did not have a steady place to sleep or slept in a chcf (including now)? No 03/02/2023 Personal Safety Answer Date Recorded Have you ever been in or are you currently in a harmful physical or emotional relationship or is someone making you feel afraid or unsafe? Denies 07/10/2023 Comments No Sex and Gender Information Value Date Recorded Sex Assigned at Not on file Legal Sex Female 11:56 AM REVIEW SPECIALIST Gender Identity Not on file Sexual Orientation Not on file Obstetrics History Last Filed Vital Signs Vital Sign Reading Time Taken Comments Blood Pressure 104/75 11/26/2024 1:38 PM CDT Pulse 93 11/26/2024 1:38 PM CDT Temperature 36.8 C (98.2 F) 11/26/2024 1:38 PM CDT Respiratory Rate 18 11/26/2024 1:38 PM CDT Oxygen Saturation 98% 11/26/2024 1:38 PM CDT Inhaled Oxygen Concentration - - Weight 82.4 kg (181 lb 9.6 oz) 11/26/2024 1:38 P M CDT Height 161.5 cm (5' 3.58) 11/26/2024 1:38 PM CD T Body Mass Index 31.58 11/26/2024 1:38 PM CDT Plan of Treatment Health Maintenance Due Date Last Done Comments Breast Cancer Screening-Mammogram 1965 Colon Cancer Screening-Colonoscopy 1966 Depression Screening 1966 Hepatitis B Screening 1984 Regular Well Visit/Exam 18-64 1984 Zoster Vaccine (1 of 2) 2016 Covid-19 Vaccine ( season) 2024 07/07/2022, 09/03/2020 Influenza Vaccine (#1) 2025 , 06/24/2021, 06/03/2020, Additional history exists DTaP/Tdap/Td Vaccine (2 - Td or Tdap) 10/15/2033 10/15/2023 Hepatitis C Screening Completed 03/01/2023 Pneumococcal vaccine <65 Aged Out No longer eligible based on patient's age to complete this topic Medical Devices Implanted Type Area Manager Operating Device Identifier Shelf Expiration Date Model / Serial / Lot [employer] Amplatz 8.5fr 26cm 6 Sideport Introducer Catheter String [id number] - [id number] Implanted:Qty: 1 on 07/11/2023 at [facility] [employer] 04/17/2026 [id number] / / [id number] Bard Per[employer] V[employer] Ultraclip Bard 17ga 10cm 2 Trigger Permanent Ultrasound [id number] - [id number] Implanted:Qty: 1 on 08/13/2024 by Sylvia Jaramillo MD at [facility] Right: Breast [employer] [id number] / / Explanted Type Area Manager Operating Device Identifier Shelf Expiration Date Model / Serial / Lot [employer] Rodríguez Flexi-Stent 4fr 2cm Small Pigtail Straight Flexible .[id number] - [id number] Implanted:Qty: 1 on 03/05/2023 by Jeffery Pollock MD at [facility] Explanted:Qty: 1 on 03/07/2023 by Jeffery Pollock MD at [facility] Stent N/A: Pancreas [employer] 08/02/2027 [id number] / / [id number] [employer] Rodríguez Flexi-Stent 4fr 2cm Small Pigtail Straight Flexible .025 [id number] - [id number] Implanted:Qty: 1 on 03/05/2023 by Jeffery Pollock MD at [facility] Explanted:Qty: 1 on 03/07/2023 by Jeffery Pollock MD at [facility] Stent N/A: Pancreas [employer] 08/02/2027 [id number] / / [id number] [employer] Son Wallflex 8mm 8.5fr 60mm 194cm Rapid Exchange Full Cover Closed [id number] - [id number] Implanted:Qty: 1 on 03/05/2023 by Jeffery Pollock MD at [facility] Explanted:Qty: 1 on 03/07/2023 by Jeffery Pollock MD at [facility] Stent N/A: Bile Duct [employer] Son 12/13/2024 [id number] / / [id number] Procedures Procedure Name Priority Date/Time Associated Diagnosis Comments HEPATITIS PANEL, ACUTE STAT 03/01/2023 4:09 PM CDT from Last 3 Months or Most Recently Relevant to Health Maintenance Results * Hepatitis panel, acute (03/01/2023 4:09 PM CDT) Hep A IgM Nonreactive Nonreactive [facility] Comment: Interpretive Data: If Hep A IgM Ab is reported as Equivocal, a new sample should be drawn in two weeks for testing. Current interpretive data was last revised on 19. Hep B core IgM Nonreactive Nonreactive [facility] Comment: Interpretive Data If HepB Core IgM Ab is reported as Equivocal, a new sample should be drawn in two weeks for testing. Current interpretive data was last revised on 19. Hep C Ab Nonreactive Nonreactive [facility] Comment: Interpretive Data Nonreactive: Antibodies to HCV not detected. Does NOT exclude the possibility of recent exposure to HCV. Equivocal: Equivocal for HCV antibodies. Supplemental molecular testing will be automatically performed to determine infection status in accordance with current CDC screening recommendations. Reactive: Positive for HCV antibodies. This may represent current or past HCV infection. Supplemental molecular testing will be automatically performed to determine current infection status in accordance with current CDC screening recommendations. Interpretive data was last revised on 2019. HepBsAg Nonreactive Nonreactive [facility] Blood 03/01/2023 4:09 PM CDT 03/01/2023 4:15 PM CDT us Markus Alejandro NP LAB MICROBIOLOGY - GENERAL ORDERABLES Final Result [facility] [address] [place] [address] from Last 3 Months or Most Recently Relevant to Health Maintenance Insurance * Guarantor: Vicky Pandey Account Type Relation to Patient Date of Phone Billing Address Personal/Family Self 1965 [address] [place] [address] [facility] Member Subscriber Plan / Payer (Ef fective 2020-Present) Name:Vicky Panedy Relation to Subscriber:Self Name:Vicky Pandey Payer ID:[id number] (NAIC) Group ID:[id number] Type:1,2,3 Listo Address: [address] [place] [address] * Guarantor: Vicky Pandey Account Type Relation to Patient Date of Phone Billing Address Personal/Family Self 1965 [address] [place] [address] [facility] Member Subscriber Plan / Payer (Ef fective 2020-Present) Name:Vicky Pandey Relation to Subscriber:Self Name:Vicky Pandey Payer ID:[id number] (NAIC) Group ID:[id number] Type:1,2,3 Listo Address: [address] [place] [address] Advance Directives For more information, please contact: [phone] * Full Code (Latest Code Status on File) Date Activated Date Inactivated Comments 07/10/2023 4:45 PM 07/12/2023 6:10 PM * Full Code Date Activated Date Inactivated Comments 03/05/2023 5:06 PM 03/07/2023 11:37 PM * Full Code Date Activated Date Inactivated Comments 03/01/2023 10:25 PM 03/05/2023 5:06 PM Care Teams Commercial Escrow Assistant Relationship Specialty Start Date End Date Kiel Naranjo MD [address] [place] [address] PCP - General Internal Medicine 04/17/17 Elder Damon MD [address] [facility] [address] [facility] [address] [place] [address] Consulting Physician Rheumatology 03/07/23 Jeffery Pollock MD [address] [facility] [address] [place] [address] Consulting Physician Gastroenterology 03/07/23 Mic Hernandez MD [address] [place] [address] Consulting Physician Nephrology 07/11/23 Duong Hernandez MD [address] [place] [address] Consulting Physician Urology 07/12/23 Amando Fatima MD [address] [place] [address] Referring Physician Obstetrics and Gynecology 06/12/24
--- OUTSIDE RECORDS SUMMARY | 2025-03-29 10:11 | XMS_ITS | Clinical Summary ---
Author Organization [facility] Address [facility] [place] [address] Care Team Providers Care Film Color Tester Name Role Phone Kiel Naranjo MD Primary Care Provider [phone] Allergies Active Allergy Reactions Criticality Noted Date Comments Bee Venom Anaphylaxis High 03/11/2020 Codeine Nausea Only 03/11/2020 Morphine Nausea Only 03/11/2020 Shellfish-Derived Products Hives 0 Medications cyclobenzaprine 10 MG tablet 09/26/2019 Active diclofenac EC 75 MG tablet 09/26/2019 Active doxycycline hyclate 100 MG capsule 06/09/2019 Active estradiol 2 MG tablet 05/08/2017 Active PREMARIN 1.25 MG tablet 03/28/2019 Active folic acid 1 MG tablet 11/24/2019 Active hydrOXYzine 25 MG tablet 10/24/2019 Active methotrexate 2.5 MG tablet 11/24/2019 Active methylPREDNISolone , MARCELA, 4 MG tablet 08/19/2019 Active topiramate 100 MG tablet 10/09/2019 Active topiramate 200 MG tablet 03/28/2017 Active traMADol 50 MG tablet 10/09/2019 Active verapamil SR 180 MG tablet 10/09/2019 Active zolpidem 10 MG tablet 11/24/2019 Active Active Problems No known active problems Immunizations Immunization Administration Dates Next Due Tdap (Boostrix) 10/15/2023 Family History Medical History Relation Comments No Known Problems Brother No Known Problems Father No Known Problems Maternal Aunt No Known Problems Maternal Grandfather No Known Problems Maternal Grandmother No Known Problems Maternal Uncle No Known Problems Mother No Known Problems Paternal Aunt No Known Problems Paternal Grandfather No Known Problems Paternal Grandmother No Known Problems Paternal Uncle No Known Problems Sister Relation Status Comments Brother Father Maternal Aunt Maternal Grandfather Maternal Grandmother Maternal Uncle Mother Paternal Aunt Paternal Grandfather Paternal Grandmother Paternal Uncle Sister Social History Tobacco Use Types Packs/Day Years Used Date Smoking Tobacco: Never Smokeless Tobacco: Never Tobacco Cessation:Counseling Given: Not Answered Alcohol Use Standard Drinks/Week Comments Yes 0 (1 standard drink = 0.6 oz pur e alcohol) AUDIT-C Answer Date Recorded Frequency of Alcohol Consumption Monthly or less 03/11/2020 Average Number of Drinks Not on file 020 Frequency of Binge Drinking Not on file 05/2020 Comments Unknown Sex and Gender Information Value Date Recorded Sex Assigned at Not on file Legal Sex Female 6:09 PM CDT Gender Identity Not on file Sexual Orientation Not on file Last Filed Vital Signs Vital Sign Reading Time Taken Comments Blood Pressure 149/93 10/15/2023 6:15 PM RELAY CHECKER Pulse 72 10/15/2023 6:15 PM RELAY CHECKER Temperature 36.8 C (98.2 F) 10/15/2023 6:15 PM RELAY CHECKER Respiratory Rate 18 10/15/2023 6:15 PM RELAY CHECKER Oxygen Saturation 99% 10/15/2023 6:15 PM RELAY CHECKER Inhaled Oxygen Concentration - - Weight 68 kg (150 lb) 10/15/2023 6:15 PM RELAY CHECKER Height 165.1 cm (5' 5) 10/15/2023 6:15 PM RELAY CHECKER Body Mass Index 24.96 10/15/2023 6:15 PM RELAY CHECKER Plan of Treatment Health Maintenance Due Date Last Done Comments Colorectal Cancer Screening Colonoscopy (10 Years) 1966 Annual Physical 1969 Hepatitis C 1984 Hepatitis B Vaccines (1 of 3 - 19+ 3-dose series) 1985 Mammogram Screening 2006 Pneumococcal Vaccine: 50+ Ye ars (1 of 1 - PCV) 2016 Zoster Vaccines (1 of 2) 2016 COVID-19 Vaccine (2023-2 5 season) 2024 DTaP, Tdap and Td Vaccines ( 2 - Td or Tdap) 10/15/2033 10/15/2023 Meningococcal B Vaccine Aged Out No l onger eligible based on patient's age to complete this topic Meningococcal Vaccine Aged Out No fernando [place] eligible based on patient's age to complete this topic RSV Immunizations Under 20 Months Aged Out No longer eligible based on patient's age to complete this topic Insurance Care Teams Film Color Tester Relationship Specialty Start Date End Date Kiel Naranjo MD [address] [place] [address] PCP - General INTERNAL MEDICINE 09/23/19
--- OUTSIDE RECORDS SUMMARY | 2025-03-29 10:11 | XMS_ITS | Encounter Summary ---
Author Organization [facility] Healthcare Address [address] [place] [address] Care Team Providers Care Geodetic Survey Director Name Role Phone Unavailable Primary Care Provider Unavailabl e Reason for Visit * Diagnostic Imaging (Routine) - Pending Review Specialty Diagnoses / Procedures Referred By Contac t Referred To Contact Procedures Breast Imaging Screening Outside Reference Transcribed Order, Provider Referral ID Status Reason Start Date Expiration Date V isits Requested Visits Authorized [id number] Pending Review 07/09/2024 08/08/2025 1 1 Encounter Details Date Type Department Care Team (Late st Contact Info) Description 06/23/2016 Hospital Encounter [facility] [address] [place] [address] Social History Tobacco Use Types Packs/Day Years Used Date Smoking Tobacco: Former Smokeless Tobacco: Never Social Connection and Isolat ion Panel [NHANES] Answer Date Recorded In a typical week, how many times do you talk on the phone with family, friends, or neighbors? More than three times a week 03/02/2023 How often do you get togethe r with friends or relatives? More than three times a week 03/02/2023 How often do you attend chur ch or buddhist services? More than 4 times per year 03/02/2023 Do you belong to any clubs o r organizations such as yazidi groups, unions, fraternal or athletic groups, or [...] place to sleep or slept in a usp (including now)? No 03/02/2023 Personal Safety Answer Date Recorded Have you ever been in or are you currently in a harmful physical or emotional relationship or is someone making you feel afraid or unsafe? Denies 07/10/2023 Comments No Sex and Gender Information Value Date Recorded Sex Assigned at Not on file Legal Sex Female 11:56 AM AERIAL APPLICATOR PILOT Gender Identity Not on file Sexual Orientation Not on file documented as of this encounter Functional Status * Audit-C Score Answer Date of Assessment Author 0 07/10/2023 6:21 AM Shon Rodgers RN * Question Answer Date of Assessment Author Q1: How often do you have a drink containing alcohol? Never 07/10/2023 6:21 AM Harika Rodgers RN Q2: How many drinks containing alcohol do you have on a typical day when you are drinking? Patient does not drink 07/10/2023 6:21 AM Harika Rodgers RN Q3: How often do you have six or more drinks on one occasion? Never 07/10/2023 6:21 AM Harika Rodgers RN documented as of this encounter Plan of Treatment Not on file documented as of this encounter Procedures Procedure Name Priority Date/Time Associated Diagnosis Comments BREAST IMAGING MG SCREENING OUTSIDE REFERENCE Routine 06/23/2016 12:00 AM CDT documented in this encounter Results * Breast Imaging Screening Outside Reference (06/23/2016 12:00 AM CDT) Impressions [facility] - 07/09/2024 10:47 AM AERIAL APPLICATOR PILOT These images are for Reference purposes only and have not been reviewed by [facility] Radiology. There will be no report generated by a [facility] Radiologist. Narrative [facility] - 07/09/2024 10:47 AM AERIAL APPLICATOR PILOT EXAMINATION: Images For Reference Purposes Only us Provider Transcribed Order IMG MAMMO PROCEDURES Final Result [facility] documented in this encounter Visit Diagnoses Not on filedocumented in this encounter
--- OUTSIDE RECORDS SUMMARY | 2025-03-29 10:11 | XMS_ITS | Encounter Summary ---
Author Organization [facility] Healthcare Address [address] [place] [address] Care Team Providers Care Manager Workers Compensation Name Role Phone Kiel Naranjo MD Primary Care Provider [phone] Reason for Visit * Diagnostic Imaging (Routine) - Pending Review Specialty Diagnoses / Procedures Referred By Zulema grimm Referred To Contact Procedures Breast Imaging Screening Outside Reference Transcribed Order, Provider Referral ID Status Reason Start Date Expiration Date V isits Requested Visits Authorized [id number] Pending Review 07/09/2024 08/08/2025 1 1 Encounter Details Date Type Department Care Team (Late st Contact Info) Description 07/13/2017 Hospital Encounter [facility] [address] [place] [id number] Social History Tobacco Use Types Packs/Day Years [...] often do you attend chur ch or oriental orthodox services? More than 4 times per year 03/02/2023 Do you belong to any clubs o r organizations such as episcopal groups, unions, fraternal or athletic groups, or [...] place to sleep or slept in a half-way (including now)? No 03/02/2023 Personal Safety Answer Date Recorded Have you ever been in or are you currently in a harmful physical or emotional relationship or is someone making you feel afraid or unsafe? Denies 07/10/2023 Comments No Sex and Gender Information Value Date Recorded Sex Assigned at Not on file Legal Sex Female 11:56 AM CUSTOMER EQUIPMENT ENGINEER Gender Identity Not on file Sexual Orientation [...] BREAST IMAGING MG SCREENING OUTSIDE REFERENCE Routine 07/13/2017 12:00 AM CUSTOMER EQUIPMENT ENGINEER documented in this encounter Results * Breast Imaging Screening Outside Reference (07/13/2017 12:00 AM CUSTOMER EQUIPMENT ENGINEER) Impressions [facility] - 07/09/2024 10:47 AM CUSTOMER EQUIPMENT ENGINEER These images are for Reference purposes only and have not been reviewed by [facility] Radiology. There will be no report generated by a [facility] Radiologist. Narrative [facility] - 07/09/2024 10:47 AM CUSTOMER EQUIPMENT ENGINEER EXAMINATION: Images For Reference Purposes Only us Provider Transcribed Order IMG MAMMO PROCEDURES Final Result [facility] documented in this encounter Visit Diagnoses Not on filedocumented in this encounter Care Teams Manager Workers Compensation Relationship Specialty Start Date End Date Kiel Naranjo MD [address] [place] [address] PCP - General Internal Medicine 04/17/17 documented as of this encounter
--- OUTSIDE RECORDS SUMMARY | 2025-03-29 10:11 | XMS_ITS | Clinical Summary ---
Author Organization [facility] Address [address] [place] [address] Phone Care Team Providers Care Patient Sitter Name Role Phone Kiel Naranjo MD Primary Care Provider [phone] Allergies Active Allergy Reactions Criticality Noted Date Comments Bee Venom Anaphylaxis High 03/11/2020 Codeine Photosensitivity,Sanchez sea Only,Other (see comments),Chest Pain 03/11/2020 Iodinated Contrast Media Rash Low 07/04/2020 Morphine Nausea Only,Shortnes s of breath High 03/11/2020 Shellfish-Derived Products Rash,Hives Low 0 Medications EPINEPHrine (EPIPEN) 0.3 MG/0.3ML injection syringe epinephrine 0.3 mg/0.3 mL injection, auto-injector Active estrogens, conjugated, (Premarin) 0.625 MG tablet daily Active conjugated estrogens (Premarin) vaginal cream daily Active folic acid (FOLVITE) 1 MG tablet folic acid 1 mg tablet 0 Active fluticasone (FLONASE) 50 MCG/ACT nasal spray fluticasone propionate 50 mcg/actuation nasal spray,suspension Active levocetirizine (XYZAL) 5 MG tablet levocetirizine 5 mg tablet Active methotrexate 2.5 MG tablet Take by mouth per week 0 Active tamsulosin (FLOMAX) 0.4 MG 24 hr capsule tamsulosin 0.4 mg capsule Active SUMAtriptan Succinate (Zembrace SymTouch) 3 MG/0.5ML solution auto-injector Zembrace Symtouch 3 mg/0.5 mL subcutaneous pen injector Active topiramate (TOPAMAX) 200 MG tablet topiramate 200 mg tablet 7 Active traMADol (ULTRAM) 50 MG tablet tramadol 50 mg tablet 7 Active zolpidem (AMBIEN) 10 MG tablet zolpidem 10 mg tablet 0 Active Active Problems Problem Noted Date Diagnosed Date Atrophic vaginitis 06/30/2020 Dyspareunia 06/30/2020 Fibrocystic disease of breast 06/30/2020 Menopause symptoms present 06/30/2020 Family History Medical History Relation Comments Kidney disease Neg Hx Nephrolithiasis Neg Hx Social History Tobacco Use Types Packs/Day Years Used Date Smoking Tobacco: Former Smokeless Tobacco: Never Alcohol Use Standard Drinks/Week Comments Yes 0 (1 standard drink = 0.6 oz pur e alcohol) occassional use Comments Unknown Sex and Gender Information Value Date Recorded Sex Assigned at Not on file Legal Sex Female 9:19 AM MDT Gender Identity Not on file Sexual Orientation Not on file Last Filed Vital Signs Vital Sign Reading Time Taken Comments Blood Pressure 124/72 08/11/2020 8:38 AM COLOR PASTE MIXER Pulse - - Temperature 36.8 C (98.3 F) 08/11/2020 8:38 AM COLOR PASTE MIXER Respiratory Rate 18 08/11/2020 8:38 AM COLOR PASTE MIXER Oxygen Saturation - - Inhaled Oxygen Concentration - - Weight 69.4 kg (153 lb) 08/11/2020 8:38 AM COLOR PASTE MIXER Height 165.1 cm (5' 5) 08/11/2020 8:38 AM COLOR PASTE MIXER Body Mass Index 25.46 08/11/2020 8:38 AM COLOR PASTE MIXER Plan of Treatment Health Maintenance Due Date Last Done Comments Influenza Vaccine (#1) 2025 Insurance Care Teams Patient Sitter Relationship Specialty Start Date End Date Kiel Naranjo MD PCP - General Internal Medicine 06/14/20
--- OUTSIDE RECORDS SUMMARY | 2025-03-29 10:11 | XMS_ITS | Referral Summary ---
Author Organization [facility] [address] Address [address] [place] [id number] Care Team Providers Care Compensation Expert Name Role Phone Kiel Naranjo MD Primary Care Provider [phone] Elder Damon MD Unavailable [phone] Jeffery Pollock MD Unavailable [phone] Mic Hernandez MD Unavailable Duong Hernandez MD Unavailable [phone] Amando Fatima MD Unavailable [phone] Allergies Active Allergy Reactions Criticality Noted Date [...] Influenza, Trivalent, IM (MDV) 06/03/2020,2018 Tdap 10/15/2023 Social History Tobacco Use Types Packs/Day Years [...] How often do you attend chur or adventism services? More than 4 times per year 03/02/2023 Do you belong to any clubs o r organizations such as evangelical groups, unions, fraternal or athletic groups, or [...] place to sleep or slept in a custodial (including now)? No 03/02/2023 Personal Safety Answer Date Recorded Have you ever been in or are you currently in a harmful physical or emotional relationship or is someone making you feel afraid or unsafe? Denies 07/10/2023 Comments No Sex and Gender Information Value Date Recorded Sex Assigned at Not on file Legal Sex Female 11:56 AM NETWORK SUPPORT MANAGER Gender Identity Not on file Sexual Orientation [...] 11/26/2024 1:38 PM CDT Plan of Treatment Not on file Medical Devices Implanted Type Area Front Office Supervisor Device Identifier Shelf Expiration Date Model / Serial / Lot Only [employer] Amplatz 8.5fr 26cm 6 Sideport Introducer Catheter String [id number] - [id number] Implanted:Qty: 1 on 07/11/2023 at [facility] Only [employer] 04/17/2026 [id number] / / [id number] Bard Peripheral Vascular Ultraclip Bard 17ga 10cm 2 Trigger Permanent Ultrasound [id number] - [id number] Implanted:Qty: 1 on 08/13/2024 by Sylvia Jaramillo MD at [facility] Right: Breast [employer] [id number] / / Explanted Type Area Front Office Supervisor Device Identifier Shelf Expiration Date Model / Serial / Lot [employer] Rodríguez Flexi-Stent 4fr 2cm Small Pigtail Straight Flexible .025 6341 - [id number] Implanted:Qty: 1 on 03/05/2023 by Jeffery Pollock MD at [facility] Explanted:Qty: 1 on 03/07/2023 by Jeffery Pollock MD at [facility] Stent N/A: Pancreas [employer] 08/02/2027 [id number] / / [id number] [employer] Rodríguez Flexi-Stent 4fr 2cm Small Pigtail Straight Flexible .025 6341 - [id number] Implanted:Qty: 1 on 03/05/2023 by Jeffery Pollock MD at [facility] Explanted:Qty: 1 on 03/07/2023 by Jeffery Pollock MD at [facility] Stent N/A: Pancreas [employer] 08/02/2027 [id number] / / [id number] [employer] Son Wallflex 8mm 8.5fr 60mm 194cm Rapid Exchange Full Cover Closed [id number] - [id number] Implanted:Qty: 1 on 03/05/2023 by Jeffery Pollock MD at [facility] Explanted:Qty: 1 on 03/07/2023 by Jeffery Pollock MD at [facility] Stent N/A: Bile Duct [employer] Son 12/13/2024 [id number] / / [id number] Procedures Procedure Name Priority Date/Time Associated Diagnosis Comments HEPATITIS PANEL, ACUTE STAT 03/01/2023 4:09 PM CDT from Last 3 Months or Most Recently Relevant to Health Maintenance Results * Hepatitis panel, acute (03/01/2023 4:09 PM CDT) Hep A IgM Nonreactive Nonreactive [facility] Comment: Interpretive Data: If Hep A IgM Ab is reported as Equivocal, a new sample should be drawn in two weeks for testing. Current interpretive data was last revised on 19. Hep B core IgM Nonreactive Nonreactive [facility] Comment: Interpretive Data If HepB Core IgM Ab is reported as Equivocal, a new sample should be drawn in two weeks for testing. Current interpretive data was last revised on 19. Hep C Ab Nonreactive Nonreactive [facility] Comment: Interpretive Data Nonreactive: Antibodies to HCV [...] last revised on 2019. HepBsAg Nonreactive Nonreactive [facility] Blood 03/01/2023 4:09 PM CDT 03/01/2023 4:15 PM CDT Markus Alejandro NP LAB MICROBIOLOGY - GENERAL ORDERABLES Final Result [facility] [address] Department [place] [address] from Last 3 Months or Most Recently Relevant to Health Maintenance Insurance * Guarantor: Vicky Pandey Account Type Relation to Patient Date of Phone Billing Address Personal/Family Self 1965 [address] [place] [address] [facility] [address] [facility] [place] [id number] [facility] Advance Directives For more information, please contact: [phone] * Full Code (Latest Code Status on File) Date Activated Date Inactivated Comments 07/10/2023 4:45 PM 07/12/2023 6:10 PM * Full Code Date Activated Date Inactivated Comments 03/05/2023 5:06 PM 03/07/2023 11:37 PM * Full Code Date Activated Date Inactivated Comments 03/01/2023 10:25 PM 03/05/2023 5:06 PM Care Teams Compensation Expert Relationship Specialty Start Date End Date Kiel Naranjo MD [address] [place] [address] PCP - General Internal Medicine 04/17/17 Elder Damon MD [address] [place] [address] Consulting Physician Rheumatology 03/07/23 Jeffery Pollock MD [address] [place] [address] Consulting Physician Gastroenterology 03/07/23 Mic Hernandez MD [address] [place] [address] Consulting Physician Nephrology 07/11/23 Duong Hernandez MD [address] [place], [place] [id number] Consulting Physician Urology 07/12/23 Amando Fatima MD [address] [place], [place] [id number] Referring Physician Obstetrics and Gynecology 06/12/24
--- OUTSIDE RECORDS SUMMARY | 2025-03-29 10:11 | XMS_ITS | Encounter Summary ---
Author Organization [facility] Healthcare Address [address] [place] [address] Care Team Providers Care Laboratory Immunologist Name Role Phone Unavailable Primary Care Provider Unavailabl e Reason for Visit * Diagnostic Imaging (Routine) - Pending Review Specialty Diagnoses / Procedures Referred By Contac t Referred To Contact Procedures Breast Imaging Diagnostic Outside Reference Transcribed Order, Provider Referral ID Status Reason Start Date Expiration Date V isits Requested Visits Authorized [id number] Pending Review 07/09/2024 08/08/2025 1 1 Encounter Details Date Type Department Care Team (Late st Contact Info) Description 05/24/2015 Hospital Encounter [facility] [address] [place] [address] Social History Tobacco Use Types [...] often do you attend chur ch or religion services? More than 4 times per year 03/02/2023 Do you belong to any clubs o r organizations such as confucianism groups, unions, fraternal or athletic groups, or [...] place to sleep or slept in a senior care (including now)? No 03/02/2023 Personal Safety Answer Date Recorded Have you ever been in or are you currently in a harmful physical or emotional relationship or is someone making you feel afraid or unsafe? Denies 07/10/2023 Comments No Sex and Gender Information Value Date Recorded Sex Assigned at Not on file Legal Sex Female 11:56 AM MEDICAL COLLECTOR Gender Identity Not on file Sexual Orientation [...] Date/Time Associated Diagnosis Comments BREAST IMAGING MG DIAGNOSTIC OUTSIDE REFERENCE Routine 05/24/2015 12:00 AM CDT documented in this encounter Results * Breast Imaging Diagnostic Outside Reference (05/24/2015 12:00 AM CDT) Impressions [facility] - 07/09/2024 10:47 AM MEDICAL COLLECTOR These images are for Reference purposes only and have not been reviewed by [facility] Radiology. There will be no report generated by a [facility] Radiologist. Narrative [facility] - 07/09/2024 10:47 AM MEDICAL COLLECTOR EXAMINATION: Images For Reference Purposes Only us Provider Transcribed Order IMG MAMMO PROCEDURES Final Result [facility] documented in this encounter Visit Diagnoses Not on filedocumented in this encounter
--- OUTSIDE RECORDS SUMMARY | 2025-03-29 10:11 | XMS_ITS | Encounter Summary ---
Author Organization [facility] Healthcare Address [address] [place] [address] Care Team Providers Care Cargo Surveyor Name Role Phone Kiel Naranjo MD Primary Care Provider [phone] Reason for Visit * Diagnostic Imaging (Routine) - Pending Review Specialty Diagnoses / Procedures Referred By Zulema grimm Referred To Contact Procedures Breast Imaging Screening Outside Reference Transcribed Order, Provider Referral ID Status Reason Start Date Expiration Date V isits Requested Visits Authorized [id number] Pending Review 07/09/2024 08/08/2025 1 1 Encounter Details Date Type Department Care Team (Late st Contact Info) Description 07/15/2018 Hospital Encounter [facility] [address] [place] [id number] Social History Tobacco Use Types Packs/Day Years [...] often do you attend chur ch or sabianist services? More than 4 times per year 03/02/2023 Do you belong to any clubs o r organizations such as tenriism groups, unions, fraternal or athletic groups, or [...] place to sleep or slept in a alf (including now)? No 03/02/2023 Personal Safety Answer Date Recorded Have you ever been in or are you currently in a harmful physical or emotional relationship or is someone making you feel afraid or unsafe? Denies 07/10/2023 Comments No Sex and Gender Information Value Date Recorded Sex Assigned at Not on file Legal Sex Female 11:56 AM TRAFFIC COORDINATOR Gender Identity Not on file Sexual Orientation [...] BREAST IMAGING MG SCREENING OUTSIDE REFERENCE Routine 07/15/2018 12:00 AM TRAFFIC COORDINATOR documented in this encounter Results * Breast Imaging Screening Outside Reference (07/15/2018 12:00 AM TRAFFIC COORDINATOR) Impressions [facility] - 07/09/2024 10:47 AM TRAFFIC COORDINATOR These images are for Reference purposes only and have not been reviewed by [facility] Radiology. There will be no report generated by a [facility] Radiologist. Narrative [facility] - 07/09/2024 10:47 AM TRAFFIC COORDINATOR EXAMINATION: Images For Reference Purposes Only us Provider Transcribed Order IMG MAMMO PROCEDURES Final Result [facility] documented in this encounter Visit Diagnoses Not on filedocumented in this encounter Care Teams Cargo Surveyor Relationship Specialty Start Date End Date Kiel Naranjo MD [address] [place] [address] PCP - General Internal Medicine 04/17/17 documented as of this encounter
--- OUTSIDE RECORDS SUMMARY | 2025-03-29 10:11 | XMS_ITS | Encounter Summary ---
Author Organization [facility] Address [facility] [place] [address] Care Team Providers Care Strategic Planning Manager Name Role Phone Kiel Naranjo MD Primary Care Provider [phone] Encounter Details Date Type Department Care Team (Late st Contact Info) Description 04/06/[address] [facility] Conversion [address] [place], [place] [address] , Generic Conversion, Social History Tobacco Use Types Packs/Day Years Used Date Smoking Tobacco: Never Assessed Comments Unknown Sex and Gender Information Value Date Recorded Sex Assigned at Not on file Legal Sex Female 6:09 PM CDT Gender Identity Not on file Sexual Orientation Not on file documented as of this encounter Plan of Treatment Not on file documented as of this encounter Visit Diagnoses Not on filedocumented in this encounter Care Teams Strategic Planning Manager Relationship Specialty Start Date End Date Kiel Naranjo MD [address] [place] [address] PCP - General INTERNAL MEDICINE 09/23/19 documented as of this encounter
--- OUTSIDE RECORDS SUMMARY | 2025-03-29 10:11 | XMS_ITS | Encounter Summary ---
Author Organization [facility] Healthcare Address [address] [place] [address] Care Team Providers Care Sawmill Equipment Operator Name Role Phone Kiel Naranjo MD Primary Care Provider [phone] Reason for Visit * Diagnostic Imaging (Routine) - Pending Review Specialty Diagnoses / Procedures Referred By Zulema grimm Referred To Contact Procedures Breast Imaging Screening Outside Reference Transcribed Order, Provider Referral ID Status Reason Start Date Expiration Date V isits Requested Visits Authorized [id number] Pending Review 07/09/2024 08/08/2025 1 1 Encounter Details Date Type Department Care Team (Late st Contact Info) Description 07/30/2019 Hospital Encounter [facility] [address] [place] [phone] Social History Tobacco Use Types Packs/Day Years [...] often do you attend chur ch or caodaism services? More than 4 times per year 03/02/2023 Do you belong to any clubs o r organizations such as buddhist groups, unions, fraternal or athletic groups, or [...] place to sleep or slept in a fpc (including now)? No 03/02/2023 Personal Safety Answer Date Recorded Have you ever been in or are you currently in a harmful physical or emotional relationship or is someone making you feel afraid or unsafe? Denies 07/10/2023 Comments No Sex and Gender Information Value Date Recorded Sex Assigned at Not on file Legal Sex Female 11:56 AM STEREO EQUIPMENT INSTALLER Gender Identity Not on file Sexual Orientation [...] BREAST IMAGING MG SCREENING OUTSIDE REFERENCE Routine 07/30/2019 12:00 AM STEREO EQUIPMENT INSTALLER documented in this encounter Results * Breast Imaging Screening Outside Reference (07/30/2019 12:00 AM STEREO EQUIPMENT INSTALLER) Impressions [facility] - 07/09/2024 10:47 AM STEREO EQUIPMENT INSTALLER These images are for Reference purposes only and have not been reviewed by [facility] Radiology. There will be no report generated by a [facility] Radiologist. Narrative [facility] - 07/09/2024 10:47 AM STEREO EQUIPMENT INSTALLER EXAMINATION: Images For Reference Purposes Only us Provider Transcribed Order IMG MAMMO PROCEDURES Final Result [facility] documented in this encounter Visit Diagnoses Not on filedocumented in this encounter Care Teams Sawmill Equipment Operator Relationship Specialty Start Date End Date Kiel Naranjo MD [address] [place] [address] PCP - General Internal Medicine 04/17/17 documented as of this encounter
--- OUTSIDE RECORDS SUMMARY | 2025-03-29 10:11 | XMS_ITS | Clinical Summary ---
Author Organization [facility] Address [address] [place] [address] Care Team Providers Care Household Appliances Service Technician Name Role Phone Frandy Rojas MD Primary Care Provider [phone] Source Comments [facility],non-owned Affiliates and Associated Physician Practices is amultiple site organization consisting of ambulatory clinics and hospital sitesin [place], [place], [place] and [place]. This disclosure is being madepursuant to the Care Everywhere program and may not contain all information available regarding this patient. Last updated 18.[facility] Allergies Active Allergy Reactions Criticality Noted Date Comments Bee Venom Anaphylaxis High 03/11/2020 Codeine Cardiac Injury,Nause a and/or Vomiting,Palpitations, Other,Photosensitivity High 03/11/2020 Reaction: OTHER REACTION, Contrast-Iodinated Agents For Ct/Other Urticaria,Rash Medium 07/04/2020 Reaction: HIVES Morphine Nausea and/or Vomiting,Shortness of Breath High 03/11/2020 Prednisone Urticaria Medium 07/12/2022 Shellfish-Derived Products Rash,Urticaria Medium 03/11/2020 Medications * Be aware that medications may not be up to date on this document. Alwaysverify current medications with the patient. adalimumab (Humira Pen) 40 MG/0.4ML injection Humira(CF) Pen 40 mg/0.4 mL subcutaneous kit Active albuterol HFA (ProAir HFA) 108 (90 Base) MCG/ACT inhaler ProAir HFA 90 mcg/actuation aerosol inhaler Active amitriptyline (Elavil) 10 MG tablet amitriptyline 10 mg tablet Active EPINEPHrine (Epipen) 0.3 MG/0.3ML auto-injector pen epinephrine 0.3 mg/0.3 mL injection, auto-injector Active estradiol (Estrace) 1 MG tablet estradiol 1 mg tablet Active estrogens, conjugated, (Premarin) 0.625 MG tablet Premarin 0.625 mg tablet Active etanercept (Enbrel SureClick) 50 MG/ML auto-injector pen Enbrel SureClick 50 mg/mL (1 mL) subcutaneous pen injector Active ezetimibe (Zetia) 10 MG tablet 06/05/20 22 Active fluticasone propionate (Flonase) 50 MCG/ACT nasal spray fluticasone propionate 50 mcg/actuation nasal spray,suspension Active folic acid (Folvite) 1 MG tablet folic acid 1 mg tablet Active hydrOXYzine HCl (Atarax) 25 MG tablet hydroxyzine HCl 25 mg tablet Active hyoscyamine SL (Levsin SL) 0.125 MG tablet hyoscyamine 0.125 mg sublingual tablet Active leflunomide (Arava) 20 MG tablet 06/06/20 22 Active levocetirizine (Xyzal) 5 MG tablet levocetirizine 5 mg tablet Active losartan (Cozaar) 50 MG tablet losartan 50 mg tablet Active meperidine (Demerol) 50 MG tablet meperidine 50 mg tablet Active NIFEdipine (Procardia) 10 MG capsule nifedipine 10 mg capsule Active nitrofurantoin monohyd macro crystals (Macrobid) 100 MG capsule nitrofurantoin monohydrate/macrocr ystals 100 mg capsule Active oseltamivir (Tamiflu) 75 MG capsule Tamiflu 75 mg capsule Active oxyCODONE-acet aminophen (Percocet) 5-325 MG tablet oxycodone-acetamino phen 5 mg-325 mg tablet Active phenazopyridin e (Pyridium) 200 MG tablet phenazopyridine 200 mg tablet Active QUEtiapine (SEROquel) 25 MG tablet 07/06/20 22 Active rosuvastatin (Crestor) 10 MG tablet rosuvastatin 10 mg tablet Active SUMAtriptan Succinate (Zembrace SymTouch) 3 MG/0.5ML SOAJ Zembrace Symtouch 3 mg/0.5 mL subcutaneous pen injector Active tamsulosin (Flomax) 0.4 MG capsule tamsulosin 0.4 mg capsule Active topiramate (Topamax) 100 MG tablet topiramate 100 mg tablet Active traMADol (Ultram) 50 MG tablet tramadol 50 mg tablet Active Rinvoq 15 MG tablet 07/11/20 Active venlafaxine XR 24hr (Effexor XR) 75 MG capsule 04/24/20 Active verapamil CR (Isoptin-SR) 180 MG tablet verapamil ER (SR) 180 mg tablet,extended release Active zolpidem (Ambien) 10 MG tablet zolpidem 10 mg tablet Active Active Problems Problem Noted Date Diagnosed Date Migraines 07/12/2022 Rheumatoid arthritis 07/12/2022 H/O total hysterectomy 07/12/2022 Social History Tobacco Use Types Packs/Day Years Used Date Smoking Tobacco: Former Cigarettes 1 9 - 2002 Smokeless Tobacco: Never Tobacco Cessation:Counseling Given: Not Answered Alcohol Use Standard Drinks/Week Comments Yes 0 (1 standard drink = 0.6 oz pur e alcohol) rarely Comments Unknown Sex and Gender Information Value Date Recorded Sex Assigned at Not on file 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 Gender Identity Not on file Sexual Orientation Not on file Plan of Treatment Health Maintenance Due Date Last Done Comments COLOGUARD (AGES 45-75) - COL ON CA SCREENING 1966 COLON MONITORING 1966 COLONOSCOPY - COLON CA SCREENING 1966 CT COLONOGRAPHY - COLON CA SCREENING 1966 Colorectal Cancer Screening 1966 FIT - COLON CA SCREENING 1966 FLEX SIG - COLON CA SCREENING 1966 MAMMOGRAM 1966 HIV SCREENING 1981 HEPATITIS C SCREENING 12/05/1984 DTAP/TDAP/TD VACCINES (1 - Tdap) 1985 HEPATITIS B VACCINE (1 of 3 - 19+ 3-dose series) 1985 PNEUMOCOCCAL VACCINE 50+ (1 of 1 - PCV) 2016 ZOSTER VACCINE (1 of 2) 2016 COVID-19 VACCINE (2023-2 5 season) 2024 DEPRESSION SCREENING 09/03/2024 INFLUENZA VACCINE (#1) 2025 HIB VACCINE Aged Out No longer eligi ble based on patient's age to complete this topic HPV VACCINE Aged Out No longer eligi ble based on patient's age to complete this topic MENINGOCOCCAL (Group B) VACC INE SHARED DECISION-MAKING Aged Out No longer eligibl e based on patient's age to complete this topic MENINGOCOCCAL GROUPS A/C/Y/W VACCINE Aged Out No longer eligible b ased on patient's age to complete this topic Insurance ANTHEM Care Teams Household Appliances Service Technician Relationship Specialty Start Date End Date Frandy Rojas MD PCP - General 03/23/20
[2025-03-29 10:20] VITALS: BP 107/86; PULSE 87; RESP 18; TEMP 36.5; O2SAT 100
--- OUTSIDE RECORDS SUMMARY | 2025-03-29 10:36 | XMS_ITS | Encounter Summary ---
Author Organization [facility] Healthcare Address [address] [place] [address] Care Team Providers Care Job Trainer Name Role Phone Unavailable Primary Care Provider Unavailabl e Reason for Visit * Diagnostic Imaging (Routine) - Pending Review Specialty Diagnoses / Procedures Referred By Contac t Referred To Contact Procedures Breast Imaging Screening Outside Reference Transcribed Order, Provider Referral ID Status Reason Start Date Expiration Date V isits Requested Visits Authorized [id number] Pending Review 07/09/2024 08/08/2025 1 1 Encounter Details Date Type Department Care Team (Late st Contact Info) Description 06/23/2016 Hospital Encounter [facility] [address] [place] [address] Social History Tobacco Use Types [...] often do you attend chur ch or holiness services? More than 4 times per year 03/02/2023 Do you belong to any clubs o r organizations such as cheondoism groups, unions, fraternal or athletic groups, or [...] place to sleep or slept in a longterm (including now)? No 03/02/2023 Personal Safety Answer Date Recorded Have you ever been in or are you currently in a harmful physical or emotional relationship or is someone making you feel afraid or unsafe? Denies 07/10/2023 Comments No Sex and Gender Information Value Date Recorded Sex Assigned at Not on file Legal Sex Female 11:56 AM PIANO ASSEMBLER Gender Identity Not on file Sexual Orientation [...] CDT) Impressions [facility] - 07/09/2024 10:47 AM PIANO ASSEMBLER These images are for Reference purposes only and have not been reviewed by [facility] Radiology. There will be no report generated by a [facility] Radiologist. Narrative [facility] - 07/09/2024 10:47 AM PIANO ASSEMBLER EXAMINATION: Images For Reference Purposes Only us Provider Transcribed Order IMG MAMMO PROCEDURES Final Result [facility] documented in this encounter Visit Diagnoses Not on filedocumented in this encounter
--- OUTSIDE RECORDS SUMMARY | 2025-03-29 10:36 | XMS_ITS | Encounter Summary ---
Author Organization [facility] Healthcare Address [address] [place] [address] Care Team Providers Care Parts Sales Representative Name Role Phone Unavailable Primary Care Provider Unavailabl e Reason for Visit * Diagnostic Imaging (Routine) - Pending Review Specialty Diagnoses / Procedures Referred By Contac t Referred To Contact Procedures Breast Imaging Diagnostic Outside Reference Transcribed Order, Provider Referral ID Status Reason Start Date Expiration Date V isits Requested Visits Authorized [id number] Pending Review 07/09/2024 08/08/2025 1 1 Encounter Details Date Type Department Care Team (Late st Contact Info) Description 05/24/2015 Hospital Encounter [facility] [address] [place] [address] Social History Tobacco Use Types [...] any clubs o r organizations such as orthodox groups, unions, fraternal or athletic groups, or [...] place to sleep or slept in a fci (including now)? No 03/02/2023 Personal Safety Answer Date Recorded Have you ever been in or are you currently in a harmful physical or emotional relationship or is someone making you feel afraid or unsafe? 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 There will be no report generated by a [facility] Radiologist. Narrative [facility] - 07/09/2024 10:47 AM PSYCHOLOGY TEACHER EXAMINATION: Images For Reference Purposes Only us Provider Transcribed Order IMG MAMMO PROCEDURES Final Result [facility] documented in this encounter Visit Diagnoses Not on filedocumented in this encounter
--- OUTSIDE RECORDS SUMMARY | 2025-03-29 10:36 | XMS_ITS | Clinical Summary ---
Author Organization [facility] Address [facility] [place] [address] Care Team Providers Care Therapist Speech Name Role Phone Kiel Naranjo MD Primary Care Provider [phone] Allergies Active Allergy Reactions Criticality Noted Date [...] Comments Blood Pressure 149/93 10/15/2023 6:[address] [place]ER Pulse 72 10/15/2023 6:[address] [place] Temperature 36.8 C (98.2 F) 10/15/2023 6:[address] [place] Respiratory Rate 18 10/15/2023 6:[address] [place] Oxygen Saturation 99% 10/15/2023 6:[address] [place] Inhaled Oxygen Concentration - - Weight 68 kg (150 lb) 10/15/2023 6:[address] [place] Height 165.1 cm (5' 5) 10/15/2023 6:[address] [place] Body Mass Index 24.96 10/15/2023 6:[address] [facility] Plan of Treatment Health Maintenance Due Date [...] to complete this topic Insurance Care Teams Therapist Speech Relationship Specialty Start Date End Date Kiel Naranjo MD [address] [place] [address] PCP - General INTERNAL MEDICINE 09/23/19
--- OUTSIDE RECORDS SUMMARY | 2025-03-29 10:36 | XMS_ITS | Encounter Summary ---
Author Organization [facility] Healthcare Address [address] [place] [address] Care Team Providers Care Merchandise Team Manager Name Role Phone Kiel Naranjo MD Primary Care Provider [phone] Reason for Visit * Diagnostic Imaging (Routine) - Pending Review Specialty Diagnoses / Procedures Referred By Zulema grimm Referred To Contact Procedures Breast Imaging Screening Outside Reference Transcribed Order, Provider Referral ID Status Reason Start Date Expiration Date V isits Requested Visits Authorized [id number] Pending Review 07/09/2024 08/08/2025 1 1 Encounter Details Date Type Department Care Team (Late st Contact Info) Description 07/15/2018 Hospital Encounter [facility] [address] [place] [address] Social History Tobacco Use Types Packs/Day Years [...] any clubs o r organizations such as orthodoxy groups, unions, fraternal or athletic groups, or [...] on file Legal Sex Female 11:56 AM PHYSICS TECHNICAL OFFICER Gender Identity Not on file Sexual Orientation [...] SCREENING OUTSIDE REFERENCE Routine 07/15/2018 12:00 AM PHYSICS TECHNICAL OFFICER documented in this encounter Results * Breast Imaging Screening Outside Reference (07/15/2018 12:00 AM PHYSICS TECHNICAL OFFICER) Impressions [facility] - 07/09/2024 10:47 AM PHYSICS TECHNICAL OFFICER These images are for Reference purposes only and have not been reviewed by [facility] Radiology. There will be no report generated by a [facility] Radiologist. Narrative [facility] - 07/09/2024 10:47 AM PHYSICS TECHNICAL OFFICER EXAMINATION: Images For Reference Purposes Only us Provider Transcribed Order IMG MAMMO PROCEDURES Final Result [facility] documented in this encounter Visit Diagnoses Not on filedocumented in this encounter Care Teams Merchandise Team Manager Relationship Specialty Start Date End Date Kiel Naranjo MD [address] [place] [address] PCP - General Internal Medicine 04/17/17 documented as of this encounter
--- OUTSIDE RECORDS SUMMARY | 2025-03-29 10:36 | XMS_ITS | Encounter Summary ---
Author Organization [facility] Healthcare Address [address] [place] [address] Care Team Providers Care Vocational Rehab Consultant Name Role Phone Kiel Naranjo MD Primary Care Provider [phone] Reason for Visit * Diagnostic Imaging (Routine) - Pending Review Specialty Diagnoses / Procedures Referred By Zulema grimm Referred To Contact Procedures Breast Imaging Screening Outside Reference Transcribed Order, Provider Referral ID Status Reason Start Date Expiration Date V isits Requested Visits Authorized [id number] Pending Review 07/09/2024 08/08/2025 1 1 Encounter Details Date Type Department Care Team (Late st Contact Info) Description 07/30/[address] [facility] [address] [place] [id number] Social History Tobacco Use Types Packs/Day Years [...] often do you attend chur ch or mosque services? More than 4 times per year 03/02/2023 Do you belong to any clubs o r organizations such as sikhism groups, unions, fraternal or athletic groups, or [...] on file Legal Sex Female 11:56 AM LICENSING DIRECTOR Gender Identity Not on file Sexual Orientation [...] SCREENING OUTSIDE REFERENCE Routine 07/30/2019 12:00 AM LICENSING DIRECTOR documented in this encounter Results * Breast Imaging Screening Outside Reference (07/30/2019 12:00 AM LICENSING DIRECTOR) Impressions [facility] - 07/09/2024 10:47 AM LICENSING DIRECTOR These images are for Reference purposes only and have not been reviewed by [facility] Radiology. There will be no report generated by a [facility] Radiologist. Narrative [facility] - 07/09/2024 10:47 AM LICENSING DIRECTOR EXAMINATION: Images For Reference Purposes Only us Provider Transcribed Order IMG MAMMO PROCEDURES Final Result [facility] documented in this encounter Visit Diagnoses Not on filedocumented in this encounter Care Teams Vocational Rehab Consultant Relationship Specialty Start Date End Date Kiel Naranjo MD [address] [place] [address] PCP - General Internal Medicine 04/17/17 documented as of this encounter
--- OUTSIDE RECORDS SUMMARY | 2025-03-29 10:36 | XMS_ITS | Encounter Summary ---
Author Organization [facility] Healthcare Address [address] [place] [address] Care Team Providers Care Heavy Equipment Operator Apprentice Name Role Phone Kiel Naranjo MD Primary Care Provider [phone] Reason for Visit * Diagnostic Imaging (Routine) - Pending Review Specialty Diagnoses / Procedures Referred By Zulema grimm Referred To Contact Procedures Breast Imaging Screening Outside Reference Transcribed Order, Provider Referral ID Status Reason Start Date Expiration Date V isits Requested Visits Authorized [id number] Pending Review 07/09/2024 08/08/2025 1 1 Encounter Details Date Type Department Care Team (Late st Contact Info) Description 07/13/2017 Hospital Encounter [facility] [address] [place] [id number] Social History Tobacco Use Types Packs/Day Years [...] often do you attend chur ch or adventist services? More than 4 times per year [...] place to sleep or slept in a [place] (including now)? No 03/02/2023 Personal Safety Answer Date Recorded Have you ever been in or are you currently in a harmful physical or emotional relationship or is someone making you feel afraid or unsafe? Denies 07/10/2023 Comments No Sex and Gender Information Value Date Recorded Sex Assigned at Not on file Legal Sex Female 11:56 AM MATERIALS SCIENTIST Gender Identity Not on file Sexual Orientation [...] SCREENING OUTSIDE REFERENCE Routine 07/13/2017 12:00 AM MATERIALS SCIENTIST documented in this encounter Results * Breast Imaging Screening Outside Reference (07/13/2017 12:00 AM MATERIALS SCIENTIST) Impressions [facility] - 07/09/2024 10:47 AM MATERIALS SCIENTIST These images are for Reference purposes only and have not been reviewed by [facility] Radiology. There will be no report generated by a [facility] Radiologist. Narrative [facility] - 07/09/2024 10:47 AM MATERIALS SCIENTIST EXAMINATION: Images For Reference Purposes Only us Provider Transcribed Order IMG MAMMO PROCEDURES Final Result [facility] documented in this encounter Visit Diagnoses Not on filedocumented in this encounter Care Teams Heavy Equipment Operator Apprentice Relationship Specialty Start Date End Date Kiel Naranjo MD [address] [place] [address] PCP - General Internal Medicine 04/17/17 documented as of this encounter
--- OUTSIDE RECORDS SUMMARY | 2025-03-29 10:37 | XMS_ITS | Clinical Summary ---
Author Organization [facility] Address [address] [place] [address] Phone Care Team Providers Care Program Director Air Talent Name Role Phone Kiel Naranjo MD Primary Care Provider [phone] Allergies Active Allergy Reactions Criticality Noted Date [...] Comments Blood Pressure 124/72 08/11/2020 8:38 AM TAKE AWAY MAN Pulse - - Temperature 36.8 C (98.3 F) 08/11/2020 8:38 AM TAKE AWAY MAN Respiratory Rate 18 08/11/2020 8:38 AM TAKE AWAY MAN Oxygen Saturation - - Inhaled Oxygen Concentration - - Weight 69.4 kg (153 lb) 08/11/2020 8:38 AM TAKE AWAY MAN Height 165.1 cm (5' 5) 08/11/2020 8:38 AM TAKE AWAY MAN Body Mass Index 25.46 08/11/2020 8:38 AM TAKE AWAY MAN Plan of Treatment Health Maintenance Due Date Last Done Comments Influenza Vaccine (#1) 2025 Insurance Care Teams Program Director Air Talent Relationship Specialty Start Date End Date Kiel Naranjo MD PCP - General Internal Medicine 06/14/20
--- OUTSIDE RECORDS SUMMARY | 2025-03-29 10:37 | XMS_ITS | Referral Summary ---
Author Organization [facility] [place] [address] Address [address] [place] [id number] Care Team Providers Care Titrator Name Role Phone Kiel Naranjo MD Primary Care Provider [phone]- [phone] Elder Damon MD Unavailable [phone] Jeffery Pollock MD Unavailable Mic Hernandez MD Unavailable Duong Hernandez MD Unavailable [phone] Amando Fatima MD Unavailable [phone] Allergies Active Allergy Reactions Criticality Noted Date [...] How often do you attend chur or jehovah's witness services? More than 4 times per year 03/02/2023 Do you belong to any clubs o r organizations such as yazdanism groups, unions, fraternal or athletic groups, or [...] place to sleep or slept in a long term (including now)? No 03/02/2023 Personal Safety Answer Date Recorded Have you ever been in or are you currently in a harmful physical or emotional relationship or is someone making you feel afraid or unsafe? Denies 07/10/2023 Comments No Sex and Gender Information Value Date Recorded Sex Assigned at Not on file Legal Sex Female 11:56 AM CERTIFIED RESPIRATORY THERAPIST Gender Identity Not on file Sexual Orientation [...] on file Medical Devices Implanted Type Area Academic Vice President Device Identifier Shelf Expiration Date Model / Serial / Lot Wasatch [employer] Amplatz 8.5fr 26cm 6 Sideport Introducer Catheter String [id number] - [id number] Implanted:Qty: 1 on 07/11/[address] [facility] Wasatch [employer] Inc 04/17/2026 [id number] / / [id number] Bard Peripheral Vascular Ultraclip Bard 17ga 10cm 2 Trigger Permanent Ultrasound [id number] - [id number] Implanted:Qty: 1 on 08/13/2024 by Sylvia Jaramillo MD at [facility] Right: Breast Bard Peripheral Vascular [id number] / / Explanted Type Area Academic Vice President Device Identifier Shelf Expiration Date Model / Serial / Lot [id number] Inc Rodríguez Flexi-Stent 4fr 2cm Small Pigtail Straight Flexible .025 6341 - [id number] Implanted:Qty: 1 on 03/05/2023 by Jeffery Pollock MD at [facility] Explanted:Qty: 1 on 03/07/2023 by Jeffery Pollock MD at [facility] Stent N/A: Pancreas Renae Medical Inc 08/02/2027 [id number] / / [id number] Inc Rodríguez Flexi-Stent 4fr 2cm Small Pigtail Straight Flexible .025 6341 - [id number] Implanted:Qty: 1 on 03/05/2023 by Jeffery Pollock MD at [facility] Explanted:Qty: 1 on 03/07/2023 by Jeffery Pollock MD at [facility] Stent N/A: Pancreas [employer] Inc 08/02/2027 [id number] / / [id number] [employer] Son Wallflex 8mm 8.5fr 60mm 194cm Rapid Exchange Full Cover Closed [id number] - [id number] Implanted:Qty: 1 on 03/05/2023 by Jeffery Pollock MD at [facility] Explanted:Qty: 1 on 03/07/2023 by Jeffery Pollock MD at [facility] Stent N/A: Bile Duct [employer] Son 12/13/2024 [id number] / / [id number] Procedures Procedure Name Priority Date/Time Associated Diagnosis Comments HEPATITIS PANEL, ACUTE STAT 03/01/2023 4:09 PM CDT from Last 3 Months or Most Recently Relevant to Health Maintenance Results * Hepatitis panel, acute (03/01/2023 4:09 PM CDT) Hep A IgM Nonreactive Nonreactive [facility] Comment: Interpretive Data: If Hep A IgM Ab is reported as Equivocal, a new sample should be drawn in two weeks for testing. Current interpretive data was last revised on 19. Hep B core IgM Nonreactive Nonreactive [facility] Comment: Interpretive Data If HepB Core IgM Ab is reported as Equivocal, a new sample should be drawn in two weeks for testing. Current interpretive data was last revised on 19. Hep C Ab Nonreactive Nonreactive [facility] Comment: Interpretive Data Nonreactive: Antibodies [...] last revised on 2019. HepBsAg Nonreactive Nonreactive [facility] Blood 03/01/2023 4:09 PM CDT 03/01/2023 4:15 PM CDT Markus Alejandro NP LAB MICROBIOLOGY - GENERAL ORDERABLES Final Result [facility] [address] [place] [address] from Last 3 Months or Most Recently Relevant to Health Maintenance Insurance * Guarantor: Vicky Pandey Account Type Relation to Patient Date of Phone Billing Address Personal/Family Self 1965 [address] [place] [address] [facility] [address] [facility] [place] [id number] [facility] Advance Directives For more information, please contact: [phone] * Full Code (Latest Code Status on File) Date Activated Date Inactivated Comments 07/10/2023 4:45 PM 07/12/2023 6:10 PM * Full Code Date Activated Date Inactivated Comments 03/05/2023 5:06 PM 03/07/2023 11:37 PM * Full Code Date Activated Date Inactivated Comments 03/01/2023 10:25 PM 03/05/2023 5:06 PM Care Teams Titrator Relationship Specialty Start Date End Date Kiel Naranjo MD [address] [place] [address] PCP - General Internal Medicine 04/17/17 Elder Damon MD [address] [place] [address] Consulting Physician Rheumatology 03/07/23 Jeffery Pollock MD [address] [place] [address] Consulting Physician Gastroenterology 03/07/23 Mic Hernandez MD [address] [place] [address] Consulting Physician Nephrology 07/11/23 Duong Hernandez MD [address] [place], [place] [id number] Consulting Physician Urology 07/12/23 Amando Fatima MD [address] [place], [place] [id number] Referring Physician Obstetrics and Gynecology 06/12/24
--- OUTSIDE RECORDS SUMMARY | 2025-03-29 10:37 | XMS_ITS | Clinical Summary ---
Author Organization [facility] [place] [address] Address [address] [place] [id number] Care Team Providers Care Machine Operator Picker Name Role Phone Kiel Naranjo MD Primary Care Provider [phone]- [phone] Elder Damon MD Unavailable [phone] Jeffery Pollock MD Unavailable Mic Hernandez MD Unavailable Duong Hernandez MD Unavailable [phone] Amando Fatima MD Unavailable [phone] Allergies Active Allergy Reactions Criticality Noted Date [...] How often do you attend chur or mosque services? 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 Gender Identity Not on file Sexual Orientation [...] this topic Medical Devices Implanted Type Area Head Of Geography Device Identifier Shelf Expiration Date Model / Serial / Lot Cook [employer] Inc Amplatz 8.5fr 26cm 6 Sideport Introducer Catheter String [id number] - [id number] Implanted:Qty: 1 on 07/11/2023 at [facility] [employer] Inc 04/17/2026 [id number] 10 / / [id number] Bard Peripheral Vascular Ultraclip Bard 17ga 10cm 2 Trigger Permanent Ultrasound [id number] - [id number] Implanted:Qty: 1 on 08/13/2024 by Sylvia Jaramillo MD at [facility] Right: Breast Bard Peripheral Vascular [id number] / / Explanted Type Area Head Of Geography Device Identifier Shelf Expiration Date Model / Serial / Lot [employer] Inc Rodríguez Flexi-Stent 4fr 2cm Small Pigtail Straight Flexible .025 6341 - [id number] Implanted:Qty: 1 on 03/05/2023 by Jeffery Pollock MD at [facility] Explanted:Qty: 1 on 03/07/2023 by Jeffery Pollock MD at [facility] Stent N/A: Pancreas Renae Medical Inc 08/02/2027 [id number] / / [id number] Renae [employer] Inc Rodríguez Flexi-Stent 4fr 2cm Small Pigtail Straight Flexible .025 6341 - [id number] Implanted:Qty: 1 on 03/05/2023 by Jeffery Pollock MD at [facility] Explanted:Qty: 1 on 03/07/2023 by Jeffery Pollock MD at [facility] Stent N/A: Pancreas Renae [employer] Inc 08/02/2027 [id number] / / [id number] [employer] Son Wallflex 8mm 8.5fr 60mm 194cm Rapid Exchange Full Cover Closed [id number] - [id number] Implanted:Qty: 1 on 03/05/2023 by Jeffery Pollock MD at [facility] Explanted:Qty: 1 on 03/07/2023 by Jeffery Pollock MD at [facility] Stent N/A: Bile Duct [employer] Son 12/13/2024 [id number] / / [id number] Procedures Procedure Name Priority Date/Time Associated Diagnosis Comments HEPATITIS PANEL, ACUTE STAT 03/01/2023 4:09 PM CDT from Last 3 Months or Most Recently Relevant to Health Maintenance Results * Hepatitis panel, acute (03/01/2023 4:09 PM CDT) Hep A IgM Nonreactive Nonreactive [facility] Comment: Interpretive Data: If Hep A IgM Ab is reported as Equivocal, a new sample should be drawn in two weeks for testing. Current interpretive data was last revised on 19. Hep B core IgM Nonreactive Nonreactive [facility] Comment: Interpretive Data If HepB Core IgM Ab is reported as Equivocal, a new sample should be drawn in two weeks for testing. Current interpretive data was last revised on 19. Hep C Ab Nonreactive Nonreactive [facility] Comment: Interpretive Data Nonreactive: Antibodies to HCV [...] last revised on 2019. HepBsAg Nonreactive Nonreactive [facility] Blood 03/01/2023 4:09 PM CDT 03/01/2023 4:15 PM CDT us Markus Alejandro NP LAB MICROBIOLOGY - GENERAL ORDERABLES Final Result [facility] [address] Department [place] [address] from Last 3 Months or Most Recently Relevant to Health Maintenance Insurance * Guarantor: Vicky Pandey Account Type Relation to Patient Date of Phone Billing Address Personal/Family Self 1965 [address] [place] [address] [facility] * Guarantor: Vicky Pandey Account Type Relation to Patient Date of Phone Billing Address Personal/Family Self 1965 [address] [place] [address] [facility] Advance Directives For more information, please contact: [phone] * Full Code (Latest Code Status on File) Date Activated Date Inactivated Comments 07/10/2023 4:45 PM 07/12/2023 6:10 PM * Full Code Date Activated Date Inactivated Comments 03/05/2023 5:06 PM 03/07/2023 11:37 PM * Full Code Date Activated Date Inactivated Comments 03/01/2023 10:25 PM 03/05/2023 5:06 PM Care Teams Machine Operator Picker Relationship Specialty Start Date End Date Kiel Naranjo MD [address] [place] [address] PCP - General Internal Medicine 04/17/17 Elder Damon MD [address] [facility] [address] [facility] [address] [place] [address] Consulting Physician Rheumatology 03/07/23 Jeffery Pollock MD [address] [facility] [address] [place] [address] Consulting Physician Gastroenterology 03/07/23 Mic Hernandez MD [address] [place] [address] Consulting Physician Nephrology 07/11/23 Duong Hernandez MD [address] [place] [address] Consulting Physician Urology 07/12/23 Amando Fatima MD [address] [place] [address] Referring Physician Obstetrics and Gynecology 06/12/24
--- OUTSIDE RECORDS SUMMARY | 2025-03-29 10:37 | XMS_ITS | Clinical Summary ---
Author Organization [facility] [employer] Address [address] [facility] [place] [address] Care Team Providers Care Acute Care Certified Nursing Assistant Name Role Phone Frandy Rojas MD Primary Care Provider [phone] Source Comments [facility] [employer],non-owned Affiliates and Associated Physician Practices is amultiple site organization consisting of ambulatory clinics and hospital sitesin [place], [place], [place] and [place]. This disclosure is being madepursuant to the Care Everywhere program and may not contain all information available regarding this patient. 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
--- OUTSIDE RECORDS SUMMARY | 2025-03-29 10:37 | XMS_ITS | Encounter Summary ---
Author Organization [facility] Address [facility] [place] [address] Care Team Providers Care Lmft Name Role Phone Kiel Naranjo MD Primary Care Provider [phone] Encounter Details Date Type Department Care Team (Late st Contact Info) Description 04/06/[address] [facility] Conversion [address] [place], [place] [address] , Generic Conversion, Social History Tobacco Use [...] on filedocumented in this encounter Care Teams Lmft Relationship Specialty Start Date End Date Kiel Naranjo MD [address] [place] [address] PCP - General INTERNAL MEDICINE 09/23/19 documented as of this encounter
--- NOTE | 2025-03-29 10:41 | ED_ITS ---
HPI - General Adult General Chief complaint: Urogenital-Female Stated complaint: flank pain Time Seen by Provider: 03/29/25 10:13 History of Present Illness HPI narrative: 59-year-old female with significant history of kidney stones presents to the emergency department for evaluation for right flank pain. Patient states pain started bowel her last night and has persisted. Patient does have some pain with urination. Patient describes right flank pain that radiates down to her right lower quadrant. Patient does have history of multiple kidney stones and does follow-up with [facility]. Patient has had multiple procedures to remove stones including surgical stone retrieval on her right kidney approximately [address] Bliss. Related Data Home Medications ?Medication ?Instructions ?Recorded ?Confirmed ?Last Taken ?Type topiramate 100 mg tablet 100 mg PO BID 03/19/20 11/26/24 03/18/20 06:00 History tramadol 50 mg tablet 50 mg PO Q4-6H PRN Pain (Scale 03/19/20 11/26/24 03/12/20 History Score 4-6) rosuvastatin 10 mg tablet 10 mg PO DAILY 11/16/22 11/26/24 Unknown History verapamil 180 mg tablet,extended 180 mg PO DAILY 11/16/22 11/26/24 Unknown History release zolpidem 10 mg tablet (Ambien) 10 mg PO QHS PRN Insomnia 11/16/22 11/26/24 Unknown History venlafaxine 75 mg capsule,extended 75 mg PO DAILY 01/01/23 11/26/24 Unknown History release 24 hr abatacept 50 mg/0.4 mL mg subcut WEEKLY 11/21/23 11/26/24 Unknown History subcutaneous syringe (Orencia) semaglutide (weight loss) 1 mg/0.5 1 mg subcut WEEKLY 11/26/24 11/26/24 Unknown History mL subcutaneous pen injector (Wegovy) Allergies Allergy/AdvReac Type Severity Reaction Status Date / Time bee venom protein (honey bee) Allergy Severe Anaphylactic Verified 03/29/25 10:09 Shock codeine Allergy Severe CHEST PAIN Verified 03/29/25 10:09 Iodinated Contrast Media Allergy Severe Rash Verified 03/29/25 10:09 morphine AdvReac Intermediate NAUSEA/VOMI Verified 03/29/25 10:09 TING Review of Systems 2 Review of Systems: All systems reviewed & are unremarkable except as noted in HPI and below PMFSH Past Medical History Medical History Breast asymmetry Hyperlipidemia Migraines Screening mammogram for breast cancer Abnormal serum cholesterol High blood pressure Acute arthritis Kidney stones Surgical History Surgical History H/O hand surgery Left hand H/O Spinal surgery C5 and 6 fusion Hx of cholecystectomy History of appendectomy Delivery by section S/P endometrial ablation History of tubal ligation H/O: hysterectomy 2000 H/O lithotripsy Family History Family History Mother Heart disease Small cell carcinoma metastatic to both lungs, Onset Age: 80 Other Brain cancer Lung cancer Social History Social History (Updated 11/26/24 @ 10:16 by XOCHILT [place]) Social History: The patient is and lives with her she has 1 son. She is retired from the [employer] [place] Code status full code Years smoked: 20 Smoking status: Former smoker Tobacco type: cigarettes Smoking end date: 09/03/00 Alcohol intake: never Substance use: never Substance use type: does not use Do You Feel Safe in your Home?: Yes Lack of Transportation: No Lack of Food: Never True Current Housing: I Have Housing Concerned About Future Housing: No Difficulty Paying Gas/Electric Bills: No Difficulty Paying for Meds: No Currently Unemployed: No Education: Associate Degree Difficulty w/ Childcare or Family Care: No Living arrangements: alone Additional living arrangements comments: Occupation/Education: retired Gender identity (if verbalized by the patient): Female Sexual Orientation (if Verbalized by the Patient): Straight or Heterosexual Spiritual care concerns: No Course Vital Signs Vital signs: Vital Signs Temperature 97.7 F 03/29/25 10:20 Pulse Rate 87 03/29/25 10:20 Respiratory Rate 18 03/29/25 10:20 Blood Pressure 107/86 03/29/25 10:20 Pulse Oximetry 100 03/29/25 10:20 Oxygen Delivery Room Air 03/29/25 10:20 Temperature 97.7 F 03/29/25 10:20 Pulse Rate 87 03/29/25 10:20 Respiratory Rate 18 03/29/25 10:20 Blood Pressure 107/86 03/29/25 10:20 Pulse Oximetry 100 03/29/25 10:20 Oxygen Delivery Room Air 03/29/25 10:20 Medical Decision Making [facility] Narrative Medical decision making narrative: 51-year-old female presents to the emergency department for evaluation for right flank pain. Patient is currently afebrile but does have a leukocytosis of 10.5 while at 12.8. No significant acute abnormalities on her CMP UA was negative for infections negative hematuria. CT and pelvis without contrast ordered due to the patient's suspicion that this was ureteral calculi. No evidence ureteral calculi were noted but patient did have suspicious finding on the right lower lobe so dedicated chest CT was requested. This is not be most likely infection rather than malignancy. Patient will be started on antibiotics in emergency department discharged home with azithromycin and Augmentin. Patient was encouraged of close follow-up with primary care physician for additional evaluation including repeat imaging. All questions concerns were addressed. Differential Diagnosis Differential Diagnosis: Pneumonia, urinary tract infection, pyelonephritis, ureteral calculi, kidney stone Vital Signs Vital Signs: Vital Signs Temperature 97.7 F 03/29/25 10:20 Pulse Rate 87 03/29/25 10:20 Respiratory Rate 18 03/29/25 10:20 Blood Pressure 107/86 03/29/25 10:20 Pulse Oximetry 100 03/29/25 10:20 Oxygen Delivery Room Air 03/29/25 10:20 Temperature 97.7 F 03/29/25 10:20 Pulse Rate 87 03/29/25 10:20 Respiratory Rate 18 03/29/25 10:20 Blood Pressure 107/86 03/29/25 10:20 Pulse Oximetry 100 03/29/25 10:20 Oxygen Delivery Room Air 03/29/25 10:20 Lab Data Lab results reviewed: Yes I reviewed the patient's lab results. 03/29/25 10:50 03/29/25 10:50 Labs: Lab Results 03/29/25 03/29/25 Range/Units 10:29 10:50 WBC 10.5 H (4.5-10.0) K/mm3 RBC 4.37 (4.2-5.4) M/mm3 Hgb 12.8 (12.0-15.0) g/dL Hct 39.0 (37.0-47.0) % MCV 89.2 (80-100) fl MCH 29.3 (26-34) pg MCHC 32.8 (32-36) g/dl RDW 12.9 (11.5-14.5) % Plt Count 295 D (150-375) k/mm3 MPV 8.4 (7.4-10.4) fl Immature Gran % (Auto) 0.4 (0-0.5) % Neut % (Auto) 71.2 (45.5-73.1) % Lymph % (Auto) 19.7 (18.3-44.2) % [place] % (Auto) 8.0 (2.6-8.5) % Eos % (Auto) 0.2 (0-4.4) % Baso % (Auto) 0.5 (0.2-1.2) % Lymph # (Auto) 2.08 (0.9-3.2) K/mm3 [place] # (Auto) 0.8 H (0.1-0.6) K/mm3 Eos # (Auto) 0.0 (0-0.3) K/mm3 Baso # (Auto) 0.1 (0.0-0.1) K/mm3 Abs Immat Gran (auto) 0.04 H (0.00-0.031) K/mm3 Absolute Neuts (auto) 7.5 H (1.3-6.7) K/mm3 Absolute Nucleated RBC 0.000 (0.0-0.012) K/mm3 Nucleated RBC % 0.0 (0.0-0.2) % Sodium 130 L (137-145) mmol/L Potassium 3.2 L (3.4-5.0) mmol/L Chloride 98 (98-107) mmol/L Carbon Dioxide 22 (22-30) mmol/L Anion Gap 10 (4-12) mmol/L BUN 7 (7-17) mg/dL Creatinine 0.90 (0.7-1.0) mg/dL Estim Creat Clear Calc 54 ml/min Estimated GFR > 60 (59 - ) Glucose 94 (65-110) mg/dL Calcium 9.2 (8.4-10.2) mg/dL Total Bilirubin 0.7 (0.2-1.3) mg/dL AST 43 H (14-36) U/L ALT 42 H (6-35) U/L Alkaline Phosphatase 125 (38-126) U/L Total Protein 7.9 (6.3-8.2) g/dL Albumin 3.9 (3.5-5.1) g/dL Urine Color Yellow (Yellow) Urine Appearance Clear (Clear) Urine pH 7.5 (5.0-9.0) Ur Specific [place] 1.005 (1.001-1.035) Urine Protein Negative (Negative) mg/dL Urine Glucose (UA) Negative (Negative) mg/dL Urine Ketones Negative (Negative) mg/dL Ur Blood (Man) Trace (Negative) Urine Nitrate Negative (Negative) Urine Bilirubin Negative (Negative) Urine Urobilinogen 1.0 (<2.0) mg/dL Add Ur Microanalysis Reviewed Leukocyte Esterase Rfl 2+ H (Negative) SATHYA/UL Urine RBC 0-2 (0-2) /hpf Urine WBC 0-5 (0-3) /hpf Ur Squamous Epith Cells None seen (Few) /hpf Urine Bacteria None seen /hpf Urine Casts 0-2 Imaging Data Radiologist's impression: Impressions Abdomen/Pelvis CT 03/29/25 11:37 IMPRESSION: Innumerable nonobstructing bilateral renal calculi, as detailed above. No obstructive uropathy. Findings within the right lung base for which dedicated chest CT is recommended in order to determine appropriate follow-up. Perivesicular inflammation for which cystitis is suspected. Chest CT 03/29/25 12:41 IMPRESSION: Redemonstration of the abnormality within the right lung base, likely causing patient's right flank pain. Given the surrounding groundglass opacification, the lack of additional abnormalities within the bilateral lung villalobos, as well as the lack of mediastinal lymphadenopathy, would favor infection over a malignancy for which short-term follow-up is needed (perhaps following a course of antibiotics). Discharge Plan Discharge Clinical Impression: Pneumonia, Acute flank pain Patient Disposition: Home Condition: Stable Instructions: Antibiotic Form, Pneumonia (ED) Additional Instructions: Have close follow-up with your primary care physician for repeat imaging of your chest to ensure resolution of the suspected pneumonia. Antibiotic as directed until completed. Tylenol and ibuprofen for pain control. Patient Language: Occitan Prescriptions: New azithromycin 250 mg tablet See Rx Instructions .ROUTE .COMPLEX Qty: 6 0RF Rx Instructions: For 250 mg dose pack: take 500 mg today (day 1), then 250 mg for 4 days (days 2-5) amoxicillin-pot clavulanate 875-125 mg tablet 1 tablet PO Q12H 7 Days Qty: 14 0RF No Action verapamil 180 mg tablet extended release 180 mg PO DAILY rosuvastatin 10 mg tablet 10 mg PO DAILY zolpidem [Ambien] 10 mg tablet 10 mg PO QHS PRN (Reason: Insomnia) Orencia 50 mg/0.4 mL syringe subcut WEEKLY Wegovy 1 mg/0.5 mL pen injector 1 mg subcut WEEKLY Rx Instructions: administer weeks 9 through 12 of therapy Premarin 0.625 mg tablet 0.625 mg PO DAILY Qty: 90 3RF tramadol 50 mg tablet 50 mg PO Q4-6H PRN (Reason: Pain (Scale Score 4-6)) topiramate 100 mg tablet 100 mg PO BID venlafaxine 75 mg Capsule,Extended Release 24hr 75 mg PO DAILY Follow-up/Referrals: PHYSICIAN NOT ON STAFF,NONSTAFF [Primary Care Provider] -
[2025-03-29 10:52] LABS: Add Urine Microscopic? YES; Appearance Urine Clear (Clear); Glucose Urine UA Negative (Negative); Leukocyte Esterase Ur 2+ LEU/UL (Negative); Need Manual Microscopic Reviewed; Nitrate Urine Negative (Negative); Non Pathogenic Casts 0-2; Specific Grav Ur 1.005 (1.001-1.035)
[2025-03-29 10:57] LABS: Hematocrit 39.0 % (37.0-47.0); Hemoglobin 12.8 g/dL (12.0-15.0); Immature Granulocyte Percent A 0.4 % (0-0.5); Lymphocytes Absolute Auto 2.08 K/mm3 (0.9-3.2); Mean Corpuscular HGB Conc 32.8 g/dl (32-36); Mean Corpuscular Hemoglobin 29.3 pg (26-34); Mean Corpuscular Volume 89.2 fl (80-100); Nucleated Red Blood Cells Absolute Auto 0.000 K/mm3 (0.0-0.012); Nucleated Red Blood Cells Perc 0.0 % (0.0-0.2); Platelet Count Result 295 k/mm3 (150-375); Red Blood Count 4.37 M/mm3 (4.2-5.4); White Blood Count 10.5 K/mm3 (4.5-10.0)
[2025-03-29] MEDS: HYDROmorphone HCL INJ (*CRX) 2 MG/ML VIAL 0.5 MG IV PUSH (10:58)
[2025-03-29 11:19] LABS: Alanine Aminotransferase 42 U/L (6-35); Albumin Level 3.9 g/dL (3.5-5.1); Alkaline Phosphatase 125 U/L (38-126); Anion Gap 10 mmol/L (4-12); Aspartate Amino Transferase 43 U/L (14-36); Bilirubin,Total 0.7 mg/dL (0.2-1.3); Blood Urea Nitrogen 7 mg/dL (7-17); Calcium 9.2 mg/dL (8.4-10.2); Carbon Dioxide 22 mmol/L (22-30); Chloride 98 mmol/L (98-107); Estimated CRCL calculation 54 ml/min; Estimated Glomerular Filt Rate > 60; Glucose 94 mg/dL (65-110); Potassium 3.2 mmol/L (3.4-5.0); Sodium 130 mmol/L (137-145); Total Protein 7.9 g/dL (6.3-8.2)
[2025-03-29] MEDS: AZITHROMYCIN 500 MG TABLET PO (13:43)
== END 2025-03-29 13:57 | disposition home or self-care (01) ==
PROVIDERS: Emergency Provider Emergency Medicine
DX: J18.9 Pneumonia, unspecified organism (principal); R10.31 Right lower quadrant pain
CPT/HCPCS: 36415; 71250; 74176; 80053; 81001; 85025; 87086; 96374; 99284; A9270; J1171